=== PATIENT | male | born 1950 | race Caucasian/White ===

== ENCOUNTER 2018-12-17 15:15 | Inpatient (IN) | payer MEDICARE, OTHER ==
[~2018-12-17] VITALS: Ht 185.4 cm; Wt 119.8 kg
--- OUTSIDE RECORDS SUMMARY | 2018-12-17 15:21 | XMS REPORT | Continuity of Care Document ---
Author Organization Unknown Address Unknown Allergies There is no data. Medications There is no data. Problems There is no data. Procedures There is no data. Results Test Result Range LIPID PANEL - 11/30/18 11:00 CHOLESTEROL, TOTAL 175 mg/dL <200 HDL CHOLESTEROL 44 mg/dL >40 TRIGLYCERIDES 362 mg/dL <150 LDL-CHOLESTEROL 83 mg/dL (calc) NRG CHOL/HDLC RATIO 4.0 (calc) <5.0 NON HDL CHOLESTEROL 131 mg/dL (calc) <130 Encounters ACCT No. Visit Date/Time Discharge Status Pt. Type Provider Facility Loc./Unit Complaint [id number] 11/30/2018 11:00:00 11/30/2018 23:59:59 [facility] Outpatient [facility] [facility] [id number] 11/30/2018 11:00:00 Document Registration
--- NOTE | 2018-12-17 15:28 | ED General ---
General Chief Complaint: Respiratory Problems Stated Complaint: CONFUSION,SOB History of Present Illness Date Seen by Provider: December 17, 2018 Time Seen by Provider: 15:27 Initial Comments Patient presenting to ED for evaluation of multiple complaints including confusion cough shortness of breath fevers chills dysuria. Patient is present with and they say that he had a cystoscopy done with Dr. Hurt in [facility] on Wednesday or Wednesday and he was started on Flomax and Proscar and he has been urinating every hour since then. He was having dribbling urine before that time and they're unsure exactly what procedure was done. says that he has been more confused especially today but he is alert and oriented for me. Patient also says that he is quite short of breath and walking from the car into the emergency room was quite short of breath. Fevers they have started today and the chills were yesterday. He appears nontoxic but is febrile and tachycardic but normotensive. His oxygen saturation is in the mid 90s. Allergies and Home Medications Allergies Coded Allergies: No Known Drug Allergies (Unverified , 12/17/18) Home Medications Atorvastatin Calcium 40 Mg Tablet, 40 MG PO HS, (Reported) Patient Home Medication List Home Medication List Reviewed: Yes Review of Systems Review of Systems Constitutional: chills, fever EENTM: No blurred vision Respiratory: cough, short of breath Gastrointestinal: No abdominal pain, No vomiting Genitourinary: dysuria Musculoskeletal: No back pain Skin: No rash Psychiatric/Neurological: No Symptoms Reported All Other Systems Reviewed Negative Unless Noted: Yes Physical Exam Vital Signs Vital Signs - First Documented 12/17/18 15:22 Temp 101.5 Pulse 120 Resp 23 B/P (MAP) 139/83 (101) Pulse Ox 96 O2 Delivery Nasal Cannula Capillary Refill : Height, Weight, BMI Height: '" Weight: lbs. oz. kg; BMI Method: General Appearance: No Apparent Distress, WD/WN HEENT: Pharynx Normal Neck: Supple Respiratory: Chest Non Tender, Lungs Clear Cardiovascular: No Edema, Tachycardia Gastrointestinal: Non Tender, Soft Back: No Vertebral Tenderness Extremity: Normal Capillary Refill Neurologic/Psychiatric: Alert, Oriented x3 Skin: Normal Color, Warm/Dry Focused Exam Lactate Level 12/17/18 15:43: Lactic Acid Level 1.38 Lactic Acid Level Laboratory Tests Test 12/17/18 15:43 Lactic Acid Level 1.38 MMOL/L (0.50-2.00) Progress/Results/Core Measures Suspected Sepsis SIRS Temperature: Pulse: Respiratory Rate: Laboratory Tests 12/17/18 15:43: White Blood Count 7.9 Blood Pressure / Mean: 12/17/18 15:43: Lactic Acid Level 1.38 Laboratory Tests 12/17/18 15:43: Creatinine 0.92, INR Comment 1.0, Platelet Count 114L, Total Bilirubin 0.9 Results/Orders Lab Results Laboratory Tests Test 12/17/18 15:43 12/17/18 16:00 Range/Units White Blood Count 7.9 4.3-11.0 10^3/uL Red Blood Count 5.14 4.35-5.85 10^6/uL Hemoglobin 14.5 13.3-17.7 G/DL Hematocrit 45 40-54 % Mean Corpuscular Volume 87 80-99 FL Mean Corpuscular Hemoglobin 28 25-34 PG Mean Corpuscular Hemoglobin Concent 32 32-36 G/DL Red Cell Distribution Width 12.6 10.0-14.5 % Platelet Count 114 L 130-400 10^3/uL Mean Platelet Volume 11.3 H 7.4-10.4 FL Neutrophils (%) (Auto) 86 H 42-75 % Lymphocytes (%) (Auto) 5 L 12-44 % Monocytes (%) (Auto) 9 0-12 % Eosinophils (%) (Auto) 0 0-10 % Basophils (%) (Auto) 0 0-10 % Neutrophils # (Auto) 6.8 1.8-7.8 X 10^3 Lymphocytes # (Auto) 0.4 L 1.0-4.0 X 10^3 Monocytes # (Auto) 0.7 0.0-1.0 X 10^3 Eosinophils # (Auto) 0.0 0.0-0.3 10^3/uL Basophils # (Auto) 0.0 0.0-0.1 10^3/uL Neutrophils % (Manual) 78 % Lymphocytes % (Manual) 3 % Monocytes % (Manual) 3 % Eosinophils % (Manual) 0 % Basophils % (Manual) 0 % Metamyelocytes % 1 % Band Neutrophils 15 % Prothrombin Time 13.9 12.2-14.7 SEC INR Comment 1.0 0.8-1.4 Activated Partial Thromboplast Time 27 24-35 SEC D-Dimer 1.45 H 0.00-0.49 UG/ML Sodium Level 128 L 135-145 MMOL/L Potassium Level 4.5 3.6-5.0 MMOL/L Chloride Level 87 L 98-107 MMOL/L Carbon Dioxide Level 11 L 21-32 MMOL/L Anion Gap 30 H 5-14 MMOL/L Blood Urea Nitrogen 15 7-18 MG/DL Creatinine 0.92 0.60-1.30 MG/DL Estimat Glomerular Filtration Rate > 60 BUN/Creatinine Ratio 16 Glucose Level 420 *H 70-105 MG/DL Lactic Acid Level 1.38 0.50-2.00 MMOL/L Calcium Level 9.4 8.5-10.1 MG/DL Corrected Calcium 9.2 8.5-10.1 MG/DL Magnesium Level 1.8 1.8-2.4 MG/DL Total Bilirubin 0.9 0.1-1.0 MG/DL Aspartate Amino Transf (AST/SGOT) 27 5-34 U/L Alanine Aminotransferase (ALT/SGPT) 42 0-55 U/L Alkaline Phosphatase 138 H 40-136 U/L Total Protein 8.2 6.4-8.2 GM/DL Albumin 4.3 3.2-4.5 GM/DL Lipase 12 8-78 U/L Urine Color YELLOW Urine Clarity CLEAR Urine pH 5.5 5-9 Urine Specific [place] 1.020 1.016-1.022 Urine Protein 1+ H NEGATIVE Urine Glucose (UA) 2+ H NEGATIVE Urine Ketones 3+ H NEGATIVE Urine Nitrite POSITIVE H NEGATIVE Urine Bilirubin NEGATIVE NEGATIVE Urine Urobilinogen 0.2 NORMAL MG/DL Urine Leukocyte Esterase 1+ H NEGATIVE Urine RBC (Auto) 2+ H NEGATIVE Urine RBC 0-2 /HPF Urine WBC 50-100 H /HPF Urine Crystals NONE /LPF Urine Bacteria FEW H /HPF Urine Casts NONE /LPF Urine Mucus NEGATIVE /LPF Urine Culture Indicated YES My Orders Orders - MARISSA WARNER DO Blood Culture (12/17/18 15:37) Cbc With Automated Diff (12/17/18 15:37) Comprehensive Metabolic Panel (12/17/18 15:37) Lactic Acid Analyzer (12/17/18 15:37) Lipase (12/17/18 15:37) Magnesium (12/17/18 15:37) Partial Thromboplastin Time (12/17/18 15:37) Probnp Fs (12/17/18 15:37) Protime With Inr (12/17/18 15:37) Troponin T (12/17/18 15:37) Ua Culture If Indicated (12/17/18 15:37) Chest 1 View Ap/Pa Only (12/17/18 15:37) Fibrin Degradation Products (12/17/18 15:37) Ketorolac Injection (Toradol Injection) (12/17/18 15:45) Ns Iv 1000 Ml (Sodium Chloride 0.9%) (12/17/18 15:45) Acetaminophen Tablet (Tylenol Tablet) (12/17/18 15:45) Piperacillin/Tazobactam (Bulk) (Zosyn In (12/17/18 15:45) Ekg Tracing (12/17/18 15:40) Ns Iv 1000 Ml (Sodium Chloride 0.9%) (12/17/18 15:45) Ns Iv 500 Ml (Sodium Chloride 0.9%) (12/17/18 15:45) Piperacillin Sodium/Tazobactam (Zosyn Vi (12/17/18 15:53) Ns (Ivpb) (Sodium Chloride 0.9% Ivpb Bag (12/17/18 15:54) Ketorolac Injection (Toradol Injection) (12/17/18 15:54) Manual Differential (12/17/18 15:43) Insulin Regular Tpn/Drip Only (Humulin R (12/17/18 16:45) Blood Culture (12/17/18 15:49) Urine Culture (12/17/18 16:00) Ns Iv 500 Ml (Sodium Chloride 0.9%) (12/17/18 16:45) Ct Angio Chest W (12/17/18 16:42) Insulin (Regular) Human (Humulin R (Per (12/17/18 16:41) Iohexol Injection (Omnipaque 350 Mg/Ml 1 (12/17/18 16:45) Received Contrast (Hold Metformin- Contr (12/17/18 16:45) Sodium Chloride Flush (Catheter Flush Sy (12/17/18 16:45) Ns (Ivpb) (Sodium Chloride 0.9% Ivpb Bag (12/17/18 16:45) Insulin (Regular) Human (Humulin R (Per (12/17/18 16:42) Ns (Ivpb) (Sodium Chloride 0.9%) (12/17/18 16:44) Medications Given in ED Current Medications Medications Dose Ordered Sig/Scar Route Start Time Stop Time Status Last Admin Dose Admin Acetaminophen 1,000 mg ONCE ONCE PO 12/17/18 15:45 12/17/18 15:46 DC 12/17/18 16:06 1,000 MG Piperacillin Sod/ Tazobactam Sod 4.5 gm/Sodium Chloride 120 ml @ 240 mls/hr ONCE ONCE IV 12/17/18 15:45 12/17/18 16:14 DC 12/17/18 16:07 240 MLS/HR Sodium Chloride 100 ml @ ud STK-MED ONCE .ROUTE 12/17/18 15:54 12/17/18 15:58 DC 12/17/18 16:08 100 MLS/HR Sodium Chloride 1,000 ml ONCE ONCE IV 12/17/18 15:45 12/17/18 15:46 DC 12/17/18 16:06 1,000 ML Vital Signs/I&O 12/17/18 15:22 Temp 101.5 Pulse 120 Resp 23 B/P (MAP) 139/83 (101) Pulse Ox 96 O2 Delivery Nasal Cannula Capillary Refill : Progress Note : Progress Note Patient does meet surge criteria with his fever and tachycardia. He was started on sepsis protocol IV fluids for ideal body weight given his BMI is over 30. His ideal body weight for his height engender is 176 kg. 2.5 L of normal saline ordered in addition to Zosyn. Patient does in fact have a urinary tract infection and is sepsis criteria. He also is in DKA with a blood sugar 420 and is quite acidotic with a CO2 of 11. Patient hydrated aggressively and insulin drip was started. I will go ahead and order a CT angios of his chest to rule out pulmonary embolism given his recent procedure. He will also get an ABG. Patient is ill but is nontoxic and appears to be normotensive so does not require pressors at this time. Patient will be transferred to [place]'s ICU. Patient transferred in guarded condition. Patient accepted by Dr. Parker. Critical Care Note Critical Care Total Time (minutes) 37 Departure Impression Primary Impression: Sepsis Additional Impressions: DKA (diabetic ketoacidoses) UTI (urinary tract infection) Disposition: 09 ADMITTED INPATIENT Condition: Improved Transfer Time Spoke to Accepting Phy: 16:50 Departure-Patient Inst. Referrals: TALA FRY MD (PCP/Family) Primary Care Physician MARISSA WARNER DO December 17, 2018 15:27
[2018-12-17] MEDS ORDERED: ACETAMINOPHEN 500 MG TAB (TYLENOL) PO ONE (15:45)
[2018-12-17] MEDS ORDERED: NS 1000 ML IV BAG IV ONE ×2 (15:45)
[2018-12-17] MEDS ORDERED: NS IV 500 ML 500 ML IV SCH ×2 (15:45→16:45)
[2018-12-17] MEDS ORDERED: PIPERACILLIN/TAZOBACTAM (BULK) 4.5 GM in NS (IVPB) 100 ML IV ONE (15:45)
[2018-12-17] MEDS ORDERED: KETOROLAC 15 MG/ML VIAL IVP ONE (15:45)
[2018-12-17] MEDS ORDERED: PIPERACILLIN/TAZO 4.5 GM VIAL (ZOSYN) IV ONE (15:53)
[2018-12-17] MEDS ORDERED: KETOROLAC 30 MG/ML VIAL ONE (15:54)
[2018-12-17] MEDS ORDERED: NS (IVPB) 100 ML ONE (15:54)
[2018-12-17 15:58] LABS: HEMATOCRIT 45 % (40-54); HEMOGLOBIN 14.5 G/DL (13.3-17.7); MEAN CORPUSCULAR HEMOGLOBIN 28 PG (25-34); MEAN CORPUSCULAR VOLUME 87 FL (80-99); WHITE BLOOD COUNT 7.9 10^3/uL (4.3-11.0)
[2018-12-17 15:59] LABS: BASOPHILS % (AUTO) 0 % (0-10); EOSINOPHILS % (AUTO) 0 % (0-10); LYMPHOCYTES # (AUTO) 0.4 X 10^3 (1.0-4.0); LYMPHOCYTES % (AUTO) 5 % (12-44); MEAN CORPUSCULAR HGB CONC 32 G/DL (32-36); MEAN PLATELET VOLUME 11.3 FL (7.4-10.4); MONOCYTES # (AUTO) 0.7 X 10^3 (0.0-1.0); MONOCYTES % (AUTO) 9 % (0-12); NEUTROPHILS # (AUTO) 6.8 X 10^3 (1.8-7.8); NEUTROPHILS % (AUTO) 86 % (42-75); PLATELET COUNT 114 10^3/uL (130-400); RED CELL DISTRIBUTION WIDTH 12.6 % (10.0-14.5)
[2018-12-17] MEDS ORDERED: QUET400T12 PO (16:00)
[2018-12-17] MEDS ORDERED: GABA-488 PO (16:00)
[2018-12-17] MEDS ORDERED: METF-399 PO (16:00)
[2018-12-17] MEDS ORDERED: LAMO100T69 PO (16:00)
[2018-12-17] MEDS ORDERED: ATOR40TA70 PO (16:00)
[2018-12-17] MEDS ORDERED: CARV25TA PO (16:00)
[2018-12-17] MEDS ORDERED: VENL150C98 PO (16:00)
[2018-12-17] MEDS ORDERED: TAMSULOSIN (16:00)
[2018-12-17 16:17] LABS: BAND NEUTROPHILS 15 %; BASOPHILS % (MANUAL) 0 %; EOSINOPHILS % (MANUAL) 0 %; LYMPHOCYTES % (MANUAL) 3 %; METAMYELOCYTES % 1 %; MONOCYTES % (MANUAL) 3 %; NEUTROPHILS % (MANUAL) 78 %
[2018-12-17 16:19] LABS: FIBRIN DEGRADATION PRODUCTS 1.45 UG/ML (0.00-0.49); PROTHROMBIN TIME PATIENT 13.9 SEC (12.2-14.7)
[2018-12-17 16:23] LABS: BUN/CREATININE RATIO 16; CARBON DIOXIDE 11 MMOL/L (21-32); CHLORIDE 87 MMOL/L (98-107); CREATININE SERUM 0.92 MG/DL (0.60-1.30); GFR ESTIMATED > 60; POTASSIUM 4.5 MMOL/L (3.6-5.0); SODIUM 128 MMOL/L (135-145)
--- NOTE | 2018-12-17 16:24 | Diagnostic Imaging Report ---
INDICATION: Confusion and shortness of breath. TIME OF EXAM: 3:57 p.m. No prior studies available for comparison. The heart size is normal. The pulmonary vascularity is unremarkable. The lungs are clear. No infiltrate, effusion or pneumothorax is detected. IMPRESSION: No acute cardiopulmonary process is detected. Dictated by: Dictated on workstation # [id number]
[2018-12-17 16:25] LABS: ALANINE AMINOTRANSFERASE 42 U/L (0-55); ALKALINE PHOSPHATASE 138 U/L (40-136); BILIRUBIN,TOTAL 0.9 MG/DL (0.1-1.0); CALCIUM 9.4 MG/DL (8.5-10.1); GLUCOSE 420 MG/DL (70-105); MAGNESIUM 1.8 MG/DL (1.8-2.4)
--- NOTE | 2018-12-17 16:25 | NUR ---
Critical lab value glucose [address] Sotelo at this time.
[2018-12-17 16:26] LABS: ALBUMIN 4.3 GM/DL (3.2-4.5); TOTAL PROTEIN 8.2 GM/DL (6.4-8.2)
[2018-12-17 16:27] LABS: LIPASE 12 U/L (8-78)
[2018-12-17 16:32] LABS: CLARITY,URINE CLEAR; COLOR,URINE YELLOW; PH,URINE 5.5 (5-9)
[2018-12-17 16:33] LABS: BACTERIA,URINE FEW /HPF; BILIRUBIN,URINE NEGATIVE (NEGATIVE); GLUCOSE, URINE (UA) 2+ (NEGATIVE); KETONES,URINE 3+ (NEGATIVE); LEUKOCYTE ESTERASE ,URINE 1+ (NEGATIVE); NITRITE,URINE POSITIVE (NEGATIVE); PROTEIN,URINE 1+ (NEGATIVE); RBC,URINE 0-2 /HPF; UROBILINOGEN,URINE 0.2 MG/DL (NORMAL); WBC,URINE 50-100 /HPF
[2018-12-17] MEDS ORDERED: inSUlin (REGULAR) HUMAN 1 UNIT/0.01 ML (CHARGE PER UNIT) ONE ×3 (16:41→20:04)
[2018-12-17] MEDS ORDERED: NS (IVPB) 250 ML ONE (16:44)
[2018-12-17] MEDS ORDERED: IOHEXOL 350 MG/ML 150 ML (OMNIPAQUE 350) VIAL IV ONE (16:45)
[2018-12-17] MEDS ORDERED: inSUlin REGULAR TPN/DRIP ONLY 250 UNITS in NORMAL SALINE 250 ML IV SCH (16:45)
[2018-12-17] MEDS ORDERED: NS 100 ML (IVPB) BAG IV ONE (16:45)
[2018-12-17] MEDS ORDERED: HOLD METFORMIN - RECEIVED CONTRAST 20 ML VIAL IV SCH (16:45)
[2018-12-17] MEDS ORDERED: CATHETER FLUSH 10 ML SYR IV PRN (16:45)
[2018-12-17 17:08] LABS: ABG PCO2 22 MMHG (35-45); ABG PO2 72 MMHG (79-93)
[2018-12-17 17:09] LABS: ABG BASE EXCESS -13.7 MMOL/L (-2.5-2.5); ABG OXYGEN SATURATION 92 % (94-100); ABG TCO2 11.5 MMOL/L (21.0-31.0); ALLENS TEST OK; INSPIRED O2 ROOM AIR; PATIENT TEMP 101.5; VENTILATOR NO
--- OUTSIDE RECORDS SUMMARY | 2018-12-17 17:16 | XMS REPORT | Continuity of Care Document ---
[...] Status Pt. Type Provider Facility Loc./Unit Complaint [id number] 11/30/2018 11:00:00 11/30/2018 23:59:59 [facility] Outpatient [facility] [place] [facility] [id number] 11/30/2018 11:00:00 Document Registration
--- NOTE | 2018-12-17 17:44 | Diagnostic Imaging Report ---
PROCEDURE: CT angiography of the chest with contrast. TECHNIQUE: Multiple contiguous axial images were obtained through the chest after uneventful bolus administration of intravenous contrast. 2D reconstructed CTA MIP acquisitions were also performed. Auto Exposure Controls were utilized during the CT exam to meet ALARA standards for radiation dose reduction. INDICATION: Dyspnea, weakness and elevated d-dimer. FINDINGS: Study is limited by motion, however, there appears to be good opacification of pulmonary arteries. No filling defect is identified. Thoracic aorta is also unremarkable in appearance apart from mild atherosclerotic disease. There is normal three-vessel branching pattern arising from aortic arch. Lungs are clear without evidence of pneumonia, mass or consolidation. There is no significant pleural or pericardial fluid. Note is made of low density throughout the liver indicating steatosis. IMPRESSION: Limited study reveals no evidence of pulmonary embolism or other acute abnormality in the thorax. Dictated by: Dictated on workstation # [id number]
[2018-12-17 18:39] VITALS: BP 110/82
[2018-12-17 19:00] VITALS: BP 120/73
[2018-12-17] MEDS ORDERED: D5 NS 1000 ML IV SOLUTION 1,000 ML IV SCH (19:30)
[2018-12-17] MEDS ORDERED: inSUlin (REGULAR) HUMAN 1 UNIT/0.01 ML (CHARGE PER UNIT) IV PRN (19:30)
[2018-12-17] MEDS ORDERED: INSULIN DRIP 250 UNITS/NS 250 ML IV SCH ×2 (19:30)
[2018-12-17] MEDS ORDERED: DEXTROSE 50% 50 ML (IMS) SYR IV PRN (19:30)
[2018-12-17] MEDS ORDERED: NS IV 1000 ML 1,000 ML IV SCH (19:30)
[2018-12-17] MEDS ORDERED: POTASSIUM CL 10MEQ/50ML IVPB 50 ML IV ONE (19:41)
[2018-12-17] MEDS ORDERED: 1/2 NS IV SOLUTION 1,000 ML IV ONE (19:42)
[2018-12-17 19:43] LABS: CALCIUM 8.6 MG/DL (8.5-10.1); CREATININE SERUM 1.25 MG/DL (0.60-1.30); POTASSIUM 3.7 MMOL/L (3.6-5.0)
[2018-12-17 20:00] VITALS: BP 102/52
[2018-12-17] MEDS ORDERED: NS IV 1000 ML X 1 WIDE OPEN IV ONE (20:00)
[2018-12-17] MEDS ORDERED: REGULAR inSUlin DRIP 250 UNITS/NS 250 ML IV SCH ×2 (20:00)
[2018-12-17] MEDS ORDERED: NORMAL SALINE 250 ML ONE (20:03)
[2018-12-17] MEDS ORDERED: PATIENT MAY USE OWN MEDS, ALL MC SCH (20:15)
[2018-12-17] MEDS: 1/2 NS IV SOLUTION 1,000 ML IV SCH (20:20)
[2018-12-17] MEDS: POTASSIUM CL 10MEQ/50ML IVPB 50 ML IV SCH ×2 (20:21→22:33)
[2018-12-17] MEDS ORDERED: 1/2 NS IV SOLUTION 1,000 ML IV SCH (20:30)
[2018-12-17] MEDS: D5 1/2 NS IV 1,000 ML IV SCH ×2 (20:35→21:00)
[2018-12-17] MEDS: DEXTROSE 10% IV SOLUTION 1,000 ML IV SCH (20:35)
[2018-12-17 21:00] VITALS: BP 124/82
[2018-12-17] MEDS: ATORVASTATIN 40 MG (LIPITOR) TABLET PO SCH (21:03)
[2018-12-17] MEDS ORDERED: IBUPROFEN 600 MG (MOTRIN) TAB PO ONE (21:22)
[2018-12-17] MEDS: IBUPROFEN 600 MG (MOTRIN) TAB PO PRN (21:47)
[2018-12-17 21:59] LABS: BUN/CREATININE RATIO 10; CALCIUM 8.5 MG/DL (8.5-10.1); CARBON DIOXIDE 16 MMOL/L (21-32); CHLORIDE 100 MMOL/L (98-107); CREATININE SERUM 1.16 MG/DL (0.60-1.30); GFR ESTIMATED > 60; GLUCOSE 287 MG/DL (70-105); POTASSIUM 3.9 MMOL/L (3.6-5.0); SODIUM 131 MMOL/L (135-145)
[2018-12-17 22:00] VITALS: BP 118/68
[2018-12-17 23:00] VITALS: BP 110/70
[2018-12-17] MEDS ORDERED: HYDROcodone/APAP 5 MG/325 MG (LORTAB) TAB ONE (23:50)
[2018-12-17] MEDS: HYDROcodone/APAP 5 MG/325 MG (LORTAB) TAB PO PRN (23:55)
[2018-12-18] VITALS (22 sets, daily range): BP systolic 95–141; BP diastolic 60–90
[2018-12-18] MEDS ORDERED: IBUPROFEN 600 MG (MOTRIN) TAB PO SCH
[2018-12-18] MEDS: 1/2 NS IV SOLUTION 1,000 ML IV SCH ×6 (00:23→21:58)
[2018-12-18] MEDS: POTASSIUM CL 10MEQ/50ML IVPB 50 ML IV SCH ×8 (00:23→13:13)
[2018-12-18 01:39] LABS: BASOPHILS % (AUTO) 0 % (0-10); EOSINOPHILS % (AUTO) 0 % (0-10); HEMATOCRIT 34 % (40-54); HEMOGLOBIN 11.2 G/DL (13.3-17.7); LYMPHOCYTES # (AUTO) 0.7 X 10^3 (1.0-4.0); LYMPHOCYTES % (AUTO) 10 % (12-44); MEAN CORPUSCULAR HEMOGLOBIN 28 PG (25-34); MEAN CORPUSCULAR HGB CONC 33 G/DL (32-36); MEAN CORPUSCULAR VOLUME 84 FL (80-99); MEAN PLATELET VOLUME 10.8 FL (7.4-10.4); MONOCYTES # (AUTO) 0.4 X 10^3 (0.0-1.0); MONOCYTES % (AUTO) 6 % (0-12); NEUTROPHILS # (AUTO) 5.7 X 10^3 (1.8-7.8); NEUTROPHILS % (AUTO) 83 % (42-75); PLATELET COUNT 104 10^3/uL (130-400); WHITE BLOOD COUNT 6.9 10^3/uL (4.3-11.0)
[2018-12-18 01:59] LABS: ALANINE AMINOTRANSFERASE 32 U/L (0-55); ALBUMIN 3.3 GM/DL (3.2-4.5); ALKALINE PHOSPHATASE 86 U/L (40-136); BILIRUBIN,TOTAL 0.7 MG/DL (0.1-1.0); BUN/CREATININE RATIO 13; CARBON DIOXIDE 17 MMOL/L (21-32); CHLORIDE 101 MMOL/L (98-107); CREATININE SERUM 1.08 MG/DL (0.60-1.30); GFR ESTIMATED > 60; GLUCOSE 235 MG/DL (70-105); MAGNESIUM 1.5 MG/DL (1.8-2.4); POTASSIUM 3.7 MMOL/L (3.6-5.0); SODIUM 128 MMOL/L (135-145); TOTAL PROTEIN 5.9 GM/DL (6.4-8.2)
[2018-12-18] MEDS: D5 1/2 NS IV 1,000 ML IV SCH ×3 (04:03→13:19)
[2018-12-18] MEDS: MAGNESIUM 1 GM/100 ML IVPB 100 ML IV SCH (05:39)
[2018-12-18] MEDS: KCL 20 MEQ TAB (K-DUR) PO SCH (05:39)
[2018-12-18] MEDS: DEXTROSE 10% IV SOLUTION 1,000 ML IV SCH ×2 (06:03→16:41)
[2018-12-18] MEDS ORDERED: LIDOCAINE UROJET 2% GEL 10 ML PKG ONE (07:26)
[2018-12-18] MEDS: IBUPROFEN 600 MG (MOTRIN) TAB PO PRN ×2 (07:53→17:57)
[2018-12-18 09:45] LABS: BUN/CREATININE RATIO 11; CALCIUM 7.9 MG/DL (8.5-10.1); CARBON DIOXIDE 14 MMOL/L (21-32); CHLORIDE 103 MMOL/L (98-107); CREATININE SERUM 0.82 MG/DL (0.60-1.30); GFR ESTIMATED > 60; GLUCOSE 223 MG/DL (70-105); POTASSIUM 3.5 MMOL/L (3.6-5.0); SODIUM 127 MMOL/L (135-145)
[2018-12-18] MEDS ORDERED: cefTRIAXone 1,000 MG IV (ROCEPHIN) VIAL ONE (09:58)
[2018-12-18] MEDS ORDERED: WATER (STERILE) FOR INJECTION 10 ML ONE (09:58)
[2018-12-18] MEDS: cefTRIAXone FOR IV USE 1,000 MG in WATER (STERILE) FOR INJECTION 10 ML IV SCH (10:04)
[2018-12-18] MEDS ORDERED: VENlafaxine XR 75 MG (EFFEXOR XR) CAP PO SCH (10:12)
--- NOTE | 2018-12-18 10:19 | History & Physical-Hospitalist ---
History of Present Illness HPI/Chief Complaint This is a 68-year-old white male who presents emergency room with fever chills and mental status changes. Blood cultures are growing out gram-negative rods. Approximately one week ago he had instrumentation by Dr. Sanchez for what sounds like is a post void residual. He describes this as a painful procedure and he had come back the next day to complete the procedure. In addition the patient has a past history of diabetes for which he has not been taking his insulin for some time because he doesn't really care with her he lives or dies. He has been under the care of [facility]. He was in DKA at the time of presentation and that is improving this morning. This morning he is awake and alert but slow to respond and is somewhat difficult historian. He is not often sure of what is transpired in the past it seems. Source: patient Exam Limitations: clinical condition Date Seen 12/18/18 Time Seen by a Provider: 09:00 Attending Physician Rachna Parker MD PCP Self,Neil DE ANDA Referring Physician Date of Admission December 17, 2018 at 17:12 Home Medications & Allergies Home Medications Reviewed patient Home Medication Reconciliation performed by pharmacy medication reconciliations senior laboratory technician and/or nursing. Patients Allergies have been reviewed. Allergies Allergies Coded Allergies No Known Drug Allergies (Unverified12/17/18) Past Kmuumuv-Cwouhr-Wvriva Hx Past Med/Social Hx: Reviewed Nursing Past Med/Soc Hx Patient Social History Marrital Status: Employed/Student: retired (Sales) Alcohol Use: Denies Use Recreational Drug Use: No Smoking Status: Never a Smoker 2nd Hand Smoke Exposure: No Recent Foreign Travel: No Contact w/other who traveled: No Recent Hopitalizations: No Recent Infectious Disease Expo: No Immunizations Up To Date Date of Pneumonia Vaccine: Jun 18, 2014 Seasonal Allergies Seasonal Allergies: No Past Medical History Surgeries: Appendectomy, Orthopedic Cardiac: High Cholesterol, Hypertension Genitourinary: Benign Prostatic Hyperpl Endocrine: Diabetes, Non-Insulin dep Cancer: Skin Psychosocial: Depression History of Blood Disorders: No Family History No Pertinent Family Hx Review of Systems Constitutional: see HPI, fever, weakness EENTM: no symptoms reported Respiratory: dyspnea on exertion, short of breath Cardiovascular: other (Racing heart) Gastrointestinal: other (Lump on his left side) Genitourinary: decreased output, hesitancy Musculoskeletal: no symptoms reported Skin: no symptoms reported Psychiatric/Neurological: Depressed Physical Exam Physical Exam Vital Signs Vital Signs - First Documented 12/17/18 15:22 Temp 101.5 Pulse 120 Resp 23 B/P (MAP) 139/83 (101) Pulse Ox 96 O2 Delivery Nasal Cannula Capillary Refill : Less Than 3 Seconds Height, Weight, BMI Height: 6'1.00" Weight: 264lbs. 7.0oz. [id number]; 34.8 BMI Method:Stated General Appearance: No Apparent Distress, Obese Eyes: Bilateral Eye Normal Inspection HEENT: TMs Normal, Normal ENT Inspection, Pharynx Normal Neck: Normal Inspection, Supple, Limited Range of Motion Respiratory: Chest Non Tender, Lungs Clear, Normal Breath Sounds, No Accessory Muscle Use, No Respiratory Distress Cardiovascular: Regular Rate, Rhythm, No Edema, No Gallop, No JVD, No Murmur, Normal Peripheral Pulses Gastrointestinal: Normal Bowel Sounds, No Organomegaly, Non Tender, Soft Rectal: Deferred Back: Normal Inspection, No CVA Tenderness, No Vertebral Tenderness Extremity: Normal Capillary Refill, Normal Inspection, No Calf Tenderness, No Pedal Edema Neurologic/Psychiatric: Alert, No Motor/Sensory Deficits, Depressed Affect Skin: Normal Color, Warm/Dry Results Results/Procedures Labs Laboratory Tests 12/17/18 15:43 12/17/18 19:12 12/17/18 21:40 12/18/18 01:30 12/18/18 09:10 12/18/18 14:19 12/18/18 17:18 Patient resulted labs reviewed. Assessment/Plan Admission Diagnosis Sepsis secondary to gram-negative rods Diabetic ketoacidosis Electrolyte abnormalities secondary to DKA Type II diabetes with noncompliance Hypertension Depression History of racing heart of uncertain etiology Shortness of breath possibly secondary to deconditioning as the patient describes a very sedentary lifestyle BPH Plan to consult Dr. Hurt continue IV antibiotics aggressive IV fluids and insulin drip. Admission Status: Inpatient Order (span 2 midnights) Reason for Inpatient Admission: Sepsis with diabetic ketoacidosis Diagnosis/Problems Diagnosis/Problems (1) Sepsis Status: Acute (2) UTI (urinary tract infection) Status: Acute (3) DKA (diabetic ketoacidoses) Status: Acute Clinical Quality Measures DVT/VTE Risk/Contraindication: Risk Factor Score Per Nursin RFS Level Per Nursing on Admit: 3=High Copy Copies To 1: NEIL FRY MD Copies To 2: LINDA SANCHEZ MD, KATHLEEN M MD December 18, 2018 10:19
[2018-12-18] MEDS: GABAPENTIN 300 MG (NEURONTIN) CAP PO SCH ×2 (10:31→21:20)
[2018-12-18] MEDS: CARVEDILOL 12.5 MG (COREG) TABLET PO SCH ×2 (10:31→21:20)
[2018-12-18 14:44] LABS: BUN/CREATININE RATIO 12; CALCIUM 8.5 MG/DL (8.5-10.1); CARBON DIOXIDE 17 MMOL/L (21-32); CHLORIDE 106 MMOL/L (98-107); CREATININE SERUM 0.81 MG/DL (0.60-1.30); GFR ESTIMATED > 60; GLUCOSE 122 MG/DL (70-105); POTASSIUM 4.1 MMOL/L (3.6-5.0); SODIUM 134 MMOL/L (135-145)
[2018-12-18] MEDS: HYDROcodone/APAP 5 MG/325 MG (LORTAB) TAB PO PRN (17:09)
[2018-12-18] MEDS: NS IV 1000 ML 1,000 ML IV SCH (17:10)
[2018-12-18 17:44] LABS: BUN/CREATININE RATIO 13; CALCIUM 8.4 MG/DL (8.5-10.1); CARBON DIOXIDE 18 MMOL/L (21-32); CHLORIDE 103 MMOL/L (98-107); CREATININE SERUM 0.82 MG/DL (0.60-1.30); GFR ESTIMATED > 60; GLUCOSE 194 MG/DL (70-105); POTASSIUM 4.3 MMOL/L (3.6-5.0); SODIUM 131 MMOL/L (135-145)
[2018-12-18] MEDS ORDERED: TAMSULOSIN 0.4 MG (FLOMAX) CAP PO SCH (18:00)
[2018-12-18] MEDS ORDERED: QUEtiapine 100 MG (SEROquel) TAB IMMEDIATE RELEASE PO SCH (21:00)
[2018-12-18] MEDS: inSUlin ASPART (NovoLOG) 1 UNIT/0.01 ML (CHARGE PER UNIT) SC SCH (21:19)
[2018-12-18] MEDS: ATORVASTATIN 40 MG (LIPITOR) TABLET PO SCH (21:20)
[2018-12-18] MEDS: VENlafaxine XR 75 MG (EFFEXOR XR) CAP PO SCH (21:20)
[2018-12-19] VITALS (16 sets, daily range): BP systolic 97–138; BP diastolic 57–87
[2018-12-19] MEDS: 1/2 NS IV SOLUTION 1,000 ML IV SCH ×2 (00:29→04:23)
[2018-12-19] MEDS: DEXTROSE 10% IV SOLUTION 1,000 ML IV SCH (03:23)
[2018-12-19] MEDS: NS IV 1000 ML 1,000 ML IV SCH (03:23)
[2018-12-19 04:25] LABS: BASOPHILS % (AUTO) 0 % (0-10); EOSINOPHILS % (AUTO) 0 % (0-10); HEMATOCRIT 34 % (40-54); HEMOGLOBIN 11.3 G/DL (13.3-17.7); LYMPHOCYTES # (AUTO) 0.6 X 10^3 (1.0-4.0); LYMPHOCYTES % (AUTO) 10 % (12-44); MEAN CORPUSCULAR HEMOGLOBIN 28 PG (25-34); MEAN CORPUSCULAR HGB CONC 33 G/DL (32-36); MEAN CORPUSCULAR VOLUME 84 FL (80-99); MEAN PLATELET VOLUME 11.6 FL (7.4-10.4); MONOCYTES # (AUTO) 0.9 X 10^3 (0.0-1.0); MONOCYTES % (AUTO) 16 % (0-12); NEUTROPHILS # (AUTO) 4.1 X 10^3 (1.8-7.8); NEUTROPHILS % (AUTO) 73 % (42-75); PLATELET COUNT 82 10^3/uL (130-400); RED CELL DISTRIBUTION WIDTH 12.8 % (10.0-14.5); WHITE BLOOD COUNT 5.6 10^3/uL (4.3-11.0)
[2018-12-19 04:43] LABS: BUN/CREATININE RATIO 11; CALCIUM 8.3 MG/DL (8.5-10.1); CARBON DIOXIDE 17 MMOL/L (21-32); CHLORIDE 106 MMOL/L (98-107); CREATININE SERUM 0.74 MG/DL (0.60-1.30); GFR ESTIMATED > 60; GLUCOSE 200 MG/DL (70-105); POTASSIUM 3.7 MMOL/L (3.6-5.0); SODIUM 134 MMOL/L (135-145)
[2018-12-19] MEDS: POTASSIUM CL 10MEQ/50ML IVPB 50 ML IV SCH (05:45)
[2018-12-19] MEDS: MAGNESIUM 1 GM/100 ML IVPB 100 ML IV SCH (05:45)
[2018-12-19] MEDS: inSUlin ASPART (NovoLOG) 1 UNIT/0.01 ML (CHARGE PER UNIT) SC SCH ×4 (05:46→20:30)
[2018-12-19] MEDS: KCL 20 MEQ TAB (K-DUR) PO SCH (05:46)
[2018-12-19] MEDS: HYDROcodone/APAP 5 MG/325 MG (LORTAB) TAB PO PRN ×2 (06:20→13:36)
[2018-12-19] MEDS: IBUPROFEN 600 MG (MOTRIN) TAB PO PRN (06:50)
[2018-12-19] MEDS: CARVEDILOL 12.5 MG (COREG) TABLET PO SCH ×2 (07:52→20:25)
[2018-12-19] MEDS: VENlafaxine XR 75 MG (EFFEXOR XR) CAP PO SCH ×2 (07:52→20:25)
[2018-12-19] MEDS: GABAPENTIN 300 MG (NEURONTIN) CAP PO SCH ×2 (07:52→20:24)
--- NOTE | 2018-12-19 09:24 | Physical Therapy Evaluation ---
PT Evaluation-General Medical Diagnosis Admission Date December 17, 2018 at 17:12 Medical Diagnosis: weakness Onset Date: December 17, 2018 Therapy Diagnosis Therapy Diagnosis: impaired mobility, strength, endurance Height/Weight Height (Feet): 6 Height (Inches): 1.00 Weight (Pounds): 265 Weight (Ounces): 7.0 Precautions Precautions/Isolations: Fall Prevention, Standard Precautions Referral Physician: Christiana Muller DO Reason for Referral: Evaluation/Treatment Medical History Pertinent Medical History: DM, HTN Additional Medical History high cholesterol, BPH, depression, surg (appendectomy, orthopedic) Reviewed History: Yes Social History Home: Single Level Current Living Status: Spouse Patient states he has several steps to enter his home. Prior/Core FIM Prior Level of Function Therapy Code Descriptions/Definitions Functional [place] Measure: 0=Not Assessed/NA 4=Minimal Assistance 1=Total Assistance 5=Supervision or Setup 2=Maximal Assistance 6=Modified [place] 3=Moderate Assistance 7=Complete [place] Therapy Quality Codes: 6 Independent with activity with or without an assistive device 5 Patient requires set up or clean up by helper. Patient completes activity by themselves 4 Supervision or touching assist (CGA). Downing provide cues , steadying assist 3 The helper provides less than half the effort to complete the activity 2 The helper provides more than half the effort to complete the activity 1 Dependent. The helper does all the effort to complete an activity 7 Patient refused to complete or attempt activity 9 The patient did not perform the activity before the current illness or injury 88 Not attempted due to Medical conditions or safety concerns Functional Abilities and Goals: Independent: Patient completed the activities by him/herself, with or without an assistive device, with no assistance from a helper. Needed Some Help: Patient needed partial assistance from another person to complete activities. Dependent: A helper completed the activities for the patient. Unknown: Not Applicable: Bed Mobility: 7 Transfers (B,C,W/C) (FIM): 7 Gait: 7 Stairs: 7 Indoor Mobility (Ambulation): Independent Stairs: Independent PT Evaluation-Current Subjective Patient in bed pre tx, agrees to PT, has 8/10 pain in his neck, states he has already received pain meds. Pt/Family Goals "to be more steady on his feet" Objective Patient Orientation: Person, Place, Situation Attachments: Almaraz Catheter, IV ROM/Strength ROM Lower Extremities WNL Strength Lower Extremities right lower extremity (hip flexion 3/5, knee flexion 4/5, knee extension 4/5, dorsiflexion 5/5), left lower extremity (hip flexion 3/5, knee flexion 4/5, knee extension 4/5, dorsiflexion 5/5) Neuromuscular (Tone, Coordination, Reflexes) NT Sensory Vision: Functional Hearing: Functional Sensation Right Lower Extremit: Impaired Sensation Left Lower Extremity: Impaired Sensation Lower Extremities Patient has decreased light touch sensation in his feet. Transfers Therapy Code Descriptions/Definitions Functional [place] Measure: 0=Not Assessed/NA 4=Minimal Assistance 1=Total Assistance 5=Supervision or Setup 2=Maximal Assistance 6=Modified [place] 3=Moderate Assistance 7=Complete [place] Transfers (B, C, W/C) (FIM): 4 Scootin Rollin Supine to/from Sit: 5 Sit to/from Stand: 4 CGA for sit to stand Gait Mode of Locomotion: Walk Anticipated Mode of Locomotion: Walk Gait (FIM): 4 Distance: 150' Gait Level of Assist: 4 Gait Persons Needed: 1 Gait Assistive Device: None Comments/Gait Description CGA, slow bu steady ambulation Balance Sitting Static: Normal Sitting Dynamic: Normal Standing Static: Good Standing Dynamic: Good Treatment seated exercises BLE x15 (AP, LAQ) Assessment/Needs Patient has impaired mobility, strength, endurance. He fatigues quickly but is able to ambulate without an assistive device. Patient in recliner post tx with nurse call, phone, tray, all needs met. Rehab Potential: Fair PT Short Term Goals Short Term Goals Time Frame: December 26, 2018 Transfers (B,C,W/C) (FIM): 5 Gait (FIM): 5 Gait Distance Comment: 200' Gait Level of Assist: 5 Gait Assistive Device: None PT Plan Problem List Problem List: Activity Tolerance, Functional Strength, Safety, Balance, Gait, Transfer, Bed Mobility Treatment/Plan Treatment Plan: Continue Plan of Care Treatment Plan: Bed Mobility, Education, Functional Activity [place], Functional Strength, Gait, Safety, Therapeutic Exercise, Transfers Treatment Duration: December 26, 2018 Frequency: 6 times per week Estimated Hrs Per Day: .25 hour per day (15-30') Patient and/or Family Agrees t: Yes Safety Risks/Education Patient Education: Gait Training, Transfer Techniques, Correct Positioning, Safety Issues Teaching Recipient: Patient Teaching Methods: Demonstration, Discussion Response to Teaching: Reinforcement Needed Discharge Recommendations Plan Patient will perform bed mobility and transfer training, balance and endurance training, functional strengthening, stair training, gait training, and education , to improve functional mobility and independence at home. Therapy D/C Recommendations: Home w/ Family Support Time/GCodes Time In: 847 Time Out: 908 Total Billed Treatment Time: 21 Total Billed Treatment 1 visit KACY 21' CHANDNI SORENSEN PT December 19, 2018 09:24
[2018-12-19] MEDS: cefTRIAXone FOR IV USE 1,000 MG in WATER (STERILE) FOR INJECTION 10 ML IV SCH (09:30)
[2018-12-19] MEDS ORDERED: TAMS0.4C98 PO (09:56)
[2018-12-19] MEDS ORDERED: QUET400T PO (09:56)
[2018-12-19] MEDS ORDERED: CHOL400C9 PO (10:01)
[2018-12-19] MEDS ORDERED: AMLO5TAB9 PO (10:01)
[2018-12-19] MEDS ORDERED: MV,M1TAB4 PO (10:01)
[2018-12-19] MEDS ORDERED: MELA3TAB PO (10:01)
[2018-12-19] MEDS ORDERED: FINA5TAB6 PO (10:01)
[2018-12-19] MEDS ORDERED: GABA-488 PO (10:03)
--- NOTE | 2018-12-19 10:04 | NUR ---
SPOKE WITH THE PATIENT ABOUT HIS MEDICATIONS. HE STATES HE TAKES A MTV DAILY OTC AND HE TAKES HIS BLOOD PRESSURE PILL 2 TABS OF A MORNING BUT EVERYTHING ELSE IS SET UP IN A PILL HOUSEKEEPER MANAGER BY HIS . THERE IS A LIST SCANNED IN ON HIS CHART AND I CALLED HIS AND WENT OVER THE REST OF THE MEDICATIONS WITH HER. IN ADDITION TO WHAT IS SHOWN ON THE EXT MED HX [facility] [place] FILLED: 11-21-18 METFORMIN 1000MG BID #180 10-11-18 ATORVASTATIN 40MG HS #90 02-07-18 AMLODIPINE 5MG DAILY #90 (ONLY TAKES PRN FOR HIGH BLOOD PRESSURE) THE CARVEDILOL IS WRITTEN TO TAKE 2 (25MG) TABLETS BID HOWEVER HE STATES HE DID NOT REALIZE THAT AND HE ONLY TAKES 2 IN THE MORNINGS. I PUT IT ON THE MED REC HE REPORTS TAKING IT. HIS GABAPENTIN IS WRITTEN TID AND SHE PUTS THE AM AND EVENING DOSE IN THE PILL HOUSEKEEPER MANAGER BUT HE IS TO TAKE THE NOON DOSE ON HIS OWN AND FORGETS TO TAKE IT SOMETIMES, I PUT IT ON PRN. HIS QUETIAPINE 400MG IS WRITTEN TO TAKE 1 IN THE EVENING AND 2 AT HS BUT HIS STATES HE PREFERS TO TAKE ALL 3 AT BEDTIME. WHEN I CALLED AND SPOKE TO HIS SHE STATES HE RECENTLY FILLED FLOMAX 0.4MG BID AND FINASTERIDE 5MG DAILY ON 12-14-18. THESE ARE NOT SHOWING ON THE EXT MED HX BUT I UPDATED THEM ON THE MED REC PER 'S VERIFICATION. HE TAKES A MTV DAILY, VITAMIN D3 400 UNIT DAILY AND MELATONIN 3MG HS OTC.
--- NOTE | 2018-12-19 10:24 | CONSULTATION REPORT ---
DATE OF SERVICE: 12/19/2018 ATTENDING PHYSICIAN: Rachna Parker MD SUMMARY: After reviewing the patient's record in the hospital and the office, this is a 68-year-old white man who was seen in my office on 12/12/2018 had a postvoid residual checked by bladder scanner. We were unable to catheterize him at that time. The flow was decreased. We started him on Flomax b.i.d. and Proscar daily. He came back the next day on the 12/13/2018 and underwent a cystoscopy that was essentially negative. An ultrasound of his prostate revealing a size of 27 mL. He subsequently apparently developed some urosepsis and was admitted to the ICU and started on antibiotics and is responding well. ASSESSMENT: Urinary retention, combination of BPH and neurogenic bladder, has a Almaraz catheter in place that showed 500 mL again of residual. PLAN: Leave the Almaraz for now. Continue the Flomax b.i.d. and Proscar daily. We will start him on Urecholine 25 mg q.i.d. before meals and at bedtime. Tomorrow we will start trial of voiding. If all fails next Wednesday, we may do a UroLift on him, give him the best chance of good results without any guarantee because of the neurogenic element of the bladder. This was fully explained to the patient. Thanks you. Job ID: [id number] DocumentID: [id number] Dictated Date: 12/19/2018 10:00:22 Book Sorter Date: 12/19/2018 10:23:57 Dictated By: LINDA SANCHEZ MD MTDD
[2018-12-19] MEDS ORDERED: amLODIPine 5 MG (NORVASC) TAB PO PRN (10:45)
[2018-12-19] MEDS ORDERED: GABAPENTIN 300 MG (NEURONTIN) CAP PO PRN (10:45)
[2018-12-19] MEDS: BETHANECHOL 25 MG (URECHOLINE) TAB PO SCH ×3 (11:38→20:25)
--- NOTE | 2018-12-19 11:39 | Occ Therapy Progress Note ---
Therapy Progress Note pt refused OT Services. pt education on role of OT, purpose, and benefits. pt again refused stating "I am independent, and I don't need you to tell me I am." nursing notified of patients refusal. d/c order secondary to refusal. SAEED ANDREW OT December 19, 2018 11:39
--- NOTE | 2018-12-19 12:47 | Progress Note-Hospitalist ---
Progress Note Progress Notes/Assess & Plan Date Seen 12/19/18 Time Seen by Provider: 12:05 Assessment & Plan The patient is a 68-year-old white male admitted with presumed sepsis and a urinary tract infection. He has now been seen by Dr. Dias from urology. He has given him bethanechol to aid in reducing his urinary retention. He feels that he can be transferred to the floor today. The plan would be to remove the Almaraz tomorrow and assess his ongoing degree of retention. Physical exam: The patient is alert and pleasant. Lungs are clear to auscultation. CV is regular without murmur. Abdomen is soft without tenderness. Impression: Urinary tract infection/sepsis. 2.urinary retention. Plan: Transfer to [facility] floor. Continue medications as noted above. Hope for discharge tomorrow if he is able to empty his bladder. Focused Exam Lactate Level 12/17/18 15:43: Lactic Acid Level 1.38 ALEXANDRE ALCALA MD December 19, 2018 12:47
[2018-12-19] MEDS: ATORVASTATIN 40 MG (LIPITOR) TABLET PO SCH (20:24)
[2018-12-19] MEDS: TAMSULOSIN 0.4 MG (FLOMAX) CAP PO SCH (20:25)
[2018-12-19] MEDS: QUEtiapine 200 MG (SEROquel) TAB IMMEDIATE RELEASE PO SCH (20:25)
[2018-12-19] MEDS ORDERED: CARVEDILOL 12.5 MG (COREG) TABLET PO SCH (21:00)
[2018-12-20 04:07] VITALS: BP 107/62
[2018-12-20] MEDS: BETHANECHOL 25 MG (URECHOLINE) TAB PO SCH ×4 (06:20→20:41)
[2018-12-20] MEDS: inSUlin ASPART (NovoLOG) 1 UNIT/0.01 ML (CHARGE PER UNIT) SC SCH ×4 (06:20→20:40)
[2018-12-20] MEDS: metFORMIN 500 MG (GLUCOPHAGE) TAB PO SCH ×2 (06:20→16:15)
--- NOTE | 2018-12-20 07:54 | Progress Note-Urology ---
Progress Note-Urology Progress Notes/Assess & Plan Progress/Assessment & Plan NO BEDS ON 4TH FLOOR YET. PLAN TOV TODAY Final Diagnosis URINE RETENTION LINDA SANCHEZ MD December 20, 2018 07:54
[2018-12-20 08:00] VITALS: BP 124/71
--- NOTE | 2018-12-20 08:34 | Physical Therapy Daily Note ---
PT Daily Note-Current Subjective Patient in bed pre tx, agrees to PT reluctantly, states he has a slight headache. Appearance Patient in bed post tx with nurse call, phone, tray, all needs met. Mental Status Patient Orientation: Person, Place, Situation Attachments: Almaraz Catheter Transfers Therapy Code Descriptions/Definitions Functional [place] Measure: 0=Not Assessed/NA 4=Minimal Assistance 1=Total Assistance 5=Supervision or Setup 2=Maximal Assistance 6=Modified [place] 3=Moderate Assistance 7=Complete [place] Therapy Quality Codes: 6 Independent with activity with or without an assistive device 5 Patient requires set up or clean up by helper. Patient completes activity by themselves 4 Supervision or touching assist (CGA). [place] provide cues , steadying assist 3 The helper provides less than half the effort to complete the activity 2 The helper provides more than half the effort to complete the activity 1 Dependent. The helper does all the effort to complete an activity 7 Patient refused to complete or attempt activity 9 The patient did not perform the activity before the current illness or injury 88 Not attempted due to Medical conditions or safety concerns Transfers (B, C, W/C) (FIM): 5 Scootin Rollin Supine to/from Sit: 6 Sit to/from Stand: 5 Gait Training Gait (FIM): 5 Distance: 300' Gait Level of Assist: 5 Gait Persons Needed: 1 Gait Assistive Device: None Patient has moments of unsteadiness, needs to ambulate near the wall so he can reach out to support himself when needed. Treatments bed mobility and transfers, ambulation Assessment Current Status: Fair Progress improved endurance PT Short Term Goals Short Term Goals Time Frame: December 26, 2018 Transfers (B,C,W/C) (FIM): 5 Gait (FIM): 5 Gait Distance Comment: 200' Gait Level of Assist: 5 Gait Assistive Device: None PT Plan Problem List Problem List: Activity Tolerance, Functional Strength, Safety, Balance, Gait, Transfer Treatment/Plan Treatment Plan: Continue Plan of Care Treatment Plan: Bed Mobility, Education, Functional Activity Stoney, Functional Strength, Gait, Safety, Therapeutic Exercise, Transfers Treatment Duration: December 26, 2018 Frequency: 6 times per week Estimated Hrs Per Day: .25 hour per day (15-30') Patient and/or Family Agrees t: Yes Safety Risks/Education Patient Education: Gait Training, Transfer Techniques, Correct Positioning, Safety Issues Teaching Recipient: Patient Teaching Methods: Demonstration, Discussion Response to Teaching: Reinforcement Needed Time/GCodes Time In: 814 Time Out: 829 Total Billed Treatment Time: 15 Total Billed Treatment 1 visit GT 15' CHANDNI SORENSEN PT December 20, 2018 08:34
[2018-12-20] MEDS: FINASTERIDE (PROSCAR) 5 MG TAB PO SCH (08:43)
[2018-12-20] MEDS: cefTRIAXone FOR IV USE 1,000 MG in WATER (STERILE) FOR INJECTION 10 ML IV SCH (08:43)
[2018-12-20] MEDS: VENlafaxine XR 75 MG (EFFEXOR XR) CAP PO SCH ×2 (08:44→20:41)
[2018-12-20] MEDS: GABAPENTIN 300 MG (NEURONTIN) CAP PO SCH ×2 (08:44→20:41)
[2018-12-20] MEDS: CARVEDILOL 12.5 MG (COREG) TABLET PO SCH ×2 (08:44→20:41)
[2018-12-20] MEDS: TAMSULOSIN 0.4 MG (FLOMAX) CAP PO SCH ×2 (08:45→20:41)
[2018-12-20] MEDS: HYDROcodone/APAP 5 MG/325 MG (LORTAB) TAB PO PRN ×3 (08:56→19:25)
[2018-12-20 12:47] VITALS: BP 126/72
--- NOTE | 2018-12-20 13:02 | Physician Query Clarification ---
PQ-Link Infection to Dev/Proc Admission/Discharge Admission Date: December 17, 2018 at 17:12 Discharge Date: The medical record reflects the following clinical scenario: History/Risk Factors: Recent cystoscopy Sepsis/UTI Clinical Findings: Admitting Urine culture > 100,000/ML Enterobacter aerogenes, admitting blood culture positive for isolated Enterobacter aerogenes. Treatment: IV Piperacillin Sod/Tazobactam Sod/Sodium Chloride, IV Rocephin. Question: Can you specify if the Sepsis/UTI are due to/associated with recent cystoscopy procedure? Please document a response below. PHYSICIAN RESPONSE Specify if infection: Other, explanation/clinical finding Explanation of clincal finding possibility In responding to this query, please exercise your independent professional judgment. The purpose of this communication is to more accurately reflect the complexity of your patients condition. The fact that a question is asked does not imply that any particular answer is desired or expected. Thank you for your timely response to this clarification. Requestors name: Alexa Anthony [facility] Phone # ext [phone] or [phone] THIS PHYSICIAN QUERY FORM IS A PERMANENT PART OF THE MEDICAL RECORD ALEXA ANTHONY December 20, 2018 13:02 LINDA SANCHEZ MD December 21, 2018 07:23
--- NOTE | 2018-12-20 13:28 | NUR ---
BLADDER SCAN DONE AFTER PT VOIDED 125ML, RESULTS OF 828ML. PT VOIDED AGAIN WITH 250ML OUT, STRAIGHT CATH DONE USING STERILE TECHNIQUE-1000ML CLEAR YELLOW URINE OUTPUT. PT TOLERATED WELL.
[2018-12-20 16:00] VITALS: BP 133/87
[2018-12-20 16:16] VITALS: BP 133/87
--- NOTE | 2018-12-20 16:20 | Progress Note-Hospitalist ---
Progress Note Progress Notes/Assess & Plan Date Seen 12/20/18 Time Seen by Provider: 16:15 Assessment & Plan The patient was unable to be transferred to the floor yesterday because there were no [facility] available beds. He has had his catheter removed today and is undergoing measurements relative to retention. The first reports from the nurses suggests that there is still a considerable degree of retention. The patient is otherwise satisfactory and comfortable. Physical exam: Lungs are clear to auscultation. CV is regular without murmur. Abdomen is soft to palpation. Extremities show no pedal edema. Impression: Enterobacter AEROGENES urinary tract infection. 2.urinary retention. 3.prostatism. Plan: Continue the voiding trial. Concern at this time is that he may require replacement of the Almaraz catheter. ALEXANDRE ALCALA MD December 20, 2018 16:20
[2018-12-20] MEDS: IBUPROFEN 600 MG (MOTRIN) TAB PO PRN (18:02)
[2018-12-20 19:15] VITALS: BP 142/89
--- NOTE | 2018-12-20 20:27 | NUR ---
Post void residual 518cc per bladder scanner. Straight cath performed. 525cc drained with straight cath. Patient tolerated well.
[2018-12-20] MEDS: ATORVASTATIN 40 MG (LIPITOR) TABLET PO SCH (20:41)
[2018-12-20] MEDS: QUEtiapine 200 MG (SEROquel) TAB IMMEDIATE RELEASE PO SCH (20:42)
[2018-12-21] VITALS: BP 113/45
[2018-12-21 03:57] VITALS: BP 128/97
--- NOTE | 2018-12-21 04:04 | NUR ---
Patient voided 500cc per urinal. Patient post void residual per bladder scan =889cc. Straight cath done at this time 825cc drained.
[2018-12-21] MEDS: BETHANECHOL 25 MG (URECHOLINE) TAB PO SCH ×2 (06:13→11:38)
[2018-12-21] MEDS: inSUlin ASPART (NovoLOG) 1 UNIT/0.01 ML (CHARGE PER UNIT) SC SCH ×2 (06:13→11:38)
[2018-12-21] MEDS: metFORMIN 500 MG (GLUCOPHAGE) TAB PO SCH (06:13)
[2018-12-21 08:00] VITALS: BP 124/87
[2018-12-21] MEDS: VENlafaxine XR 75 MG (EFFEXOR XR) CAP PO SCH (08:07)
[2018-12-21] MEDS: TAMSULOSIN 0.4 MG (FLOMAX) CAP PO SCH (08:07)
[2018-12-21] MEDS: FINASTERIDE (PROSCAR) 5 MG TAB PO SCH (08:07)
[2018-12-21] MEDS: CARVEDILOL 12.5 MG (COREG) TABLET PO SCH (08:07)
[2018-12-21] MEDS: GABAPENTIN 300 MG (NEURONTIN) CAP PO SCH (08:07)
--- NOTE | 2018-12-21 08:37 | Physical Therapy Daily Note ---
PT Daily Note-Current Subjective Patient in bed pre tx, agrees to PT, has 3/10 pain in head and neck. Appearance Patient sitting EOB post tx talking to Dr. Dias. Has nurse call, tray, phone, all needs met. Mental Status Patient Orientation: Person, Place, Situation, Normal For Age Transfers Therapy Code Descriptions/Definitions Functional [place] Measure: 0=Not Assessed/NA 4=Minimal Assistance 1=Total Assistance 5=Supervision or Setup 2=Maximal Assistance 6=Modified [place] 3=Moderate Assistance 7=Complete [place] Therapy Quality Codes: 6 Independent with activity with or without an assistive device 5 Patient requires set up or clean up by helper. Patient completes activity by themselves 4 Supervision or touching assist (CGA). [place] provide cues , steadying assist 3 The helper provides less than half the effort to complete the activity 2 The helper provides more than half the effort to complete the activity 1 Dependent. The helper does all the effort to complete an activity 7 Patient refused to complete or attempt activity 9 The patient did not perform the activity before the current illness or injury 88 Not attempted due to Medical conditions or safety concerns Transfers (B, C, W/C) (FIM): 7 Scootin Rollin Supine to/from Sit: 7 Sit to/from Stand: 7 Bed to/from Chair: 7 Gait Training Gait (FIM): 7 Distance: 350' Gait Level of Assist: 7 Gait Assistive Device: None No LOB or unsteadiness. Treatments bed mobility and transfers, ambulation Assessment Current Status: Fair Progress Patient is not independent with mobility, patient encouraged to ambulate on his own, will discharge at this time. PT Short Term Goals Short Term Goals Time Frame: December 26, 2018 Transfers (B,C,W/C) (FIM): 5 Gait (FIM): 5 Gait Distance Comment: 200' Gait Level of Assist: 5 Gait Assistive Device: None PT Plan Problem List Problem List: Activity Tolerance Treatment/Plan Treatment Plan: Discontinue PT Treatment Plan: Bed Mobility, Education, Functional Activity Stoney, Functional Strength, Gait, Safety, Therapeutic Exercise, Transfers Treatment Duration: December 26, 2018 Frequency: 6 times per week Estimated Hrs Per Day: .25 hour per day (15-30') Patient and/or Family Agrees t: Yes Safety Risks/Education Patient Education: Gait Training, Transfer Techniques, Correct Positioning, Safety Issues Teaching Recipient: Patient Teaching Methods: Demonstration, Discussion Response to Teaching: Reinforcement Needed Discharge Recommendations Plan DC Time/GCodes Time In: 821 Time Out: 0832 Total Billed Treatment Time: 10 Total Billed Treatment 1 visit GT 10' CHANDNI SORENSEN PT December 21, 2018 08:37
--- NOTE | 2018-12-21 08:54 | Progress Note-Urology ---
Progress Note-Urology Progress Notes/Assess & Plan Progress/Assessment & Plan HAVING LARGE PVR. I HAD A LONG DISCUSSION WITH PATIENT ABOUT HIS ALTERNATIVE OF TREATMENT WITH EXPECTATIONS, RISKS, AND COMPLICATIONS STRESSING ON NEED TO HELP THE NEUROGENIC ELEMENT WITH MEDICINES AND OR I.C. DISCUSSED ISC VS UROLIFT VS TURP WITH PROS AND CONS. PATIENT REFUSES ISC, LEANS TOWARD TURP. WANTS NEXT WEDNESDAY. FULLY EXPLAINED WITH POSTOP COURSE. OK TO DISCHARGE [place] ON PO ABX, SEE ME NEXT WEDNESDAY AT OFFICE TO SET UP TURP Final Diagnosis URINE RETENTION LINDA SANCHEZ MD December 21, 2018 08:54
--- NOTE | 2018-12-21 11:30 | Progress Note-Hospitalist ---
Progress Note Progress Notes/Assess & Plan Date Seen 12/21/18 Time Seen by Provider: 11:27 Assessment & Plan Dr. Dias feels the patient is ready for discharge. He exhibited considerable retention on his postvoid residuals. Given this the plan is for him to have a TURP next Wednesday. He is said to be ready for discharge otherwise. Physical exam: Lungs are clear to auscultation. CV is regular without murmur. Abdomen is soft. Impression: 1.BPH. 2.urinary retention. Consider neurogenic bladder. 3.diabetes mellitus. Plan: Discharge. See discharge sequence for ALEXANDRE ALCALA MD December 21, 2018 11:30
[2018-12-21] MEDS ORDERED: CEFD300C3 PO (11:32)
--- NOTE | 2018-12-21 11:35 | Discharge Inst-Simple/Standard ---
Discharge Inst-Standard Patient Instructions/Follow Up Plan of Care/Instructions/FU: Medications as listed in the discharge sequence. Appointment Dr. Dias next Wednesday for preparations relative to TURP Activity as Tolerated: Yes Discharge Diet: ADA Diet ALEXANDRE ALCALA MD December 21, 2018 11:35
[2018-12-21] MEDS: cefTRIAXone FOR IV USE 1,000 MG in WATER (STERILE) FOR INJECTION 10 ML IV SCH (11:38)
[2018-12-21] MEDS ORDERED: BETH25TA11 PO (11:57)
[2018-12-21 12:00] VITALS: BP 126/78
[2018-12-21] MEDS: HYDROcodone/APAP 5 MG/325 MG (LORTAB) TAB PO PRN (12:06)
[2018-12-21 15:30] VITALS: BP 126/78
--- NOTE | 2018-12-21 16:50 | NUR ---
CALL FROM PT'S FAMILY MEMBER STATING THAT THE RX TRANSMITTED TO THE PREFERRED PHARMACY WAS UNABLE TO BE FILLED FOR PT UNDER DR ALCALA HE HAS NO REFERRAL AT THE PHARMACY BOTH RX WHERE CALLED TO PHARMACY UNDER DR SANCHEZ PHARMACY CAN FILL FOR HIM. DR SANCHEZ WAS SPOKEN WITH EARLIER IN THE AFTERNOON AND SPECIFIED THAT PT WAS TO BE DC'D WITH ANTIBIOTIC AND URECHOLINE. THESE ARE THE RX CALLED TO THE PHARMACY AT THIS TIME.
== END 2018-12-21 15:33 | disposition home or self-care (01) | DRG 862 ==
LOC: ER FS 15:18 → ICU 17:12
PROVIDERS: ADMIT Internal Medicine; ATTEND Internal Medicine
DX: T81.44XA Sepsis following a procedure, initial encounter (principal); A41.59 Other Gram-negative sepsis; N39.0 Urinary tract infection, site not specified; E11.10 Type 2 diabetes mellitus with ketoacidosis without coma; N40.1 Benign prostatic hyperplasia with lower urinary tract symptoms; R33.8 Other retention of urine; N31.9 Neuromuscular dysfunction of bladder, unspecified; I10 Essential (primary) hypertension; E78.00 Pure hypercholesterolemia, unspecified; F32.9 Major depressive disorder, single episode, unspecified; R06.02 Shortness of breath; E66.9 Obesity, unspecified; Z68.35 Body mass index [BMI] 35.0-35.9, adult; Z85.828 Personal history of other malignant neoplasm of skin; Z91.14 Patient's other noncompliance with medication regimen
CPT/HCPCS: 36415; 71045; 71275; 80048; 80053; 81000; 82805; 82962; 83605; 83690; 83735; 83880; 84484; 85007; 85025; 85027; 85379; 85610; 85730; 87040; 87077; 87088; 87186; 93005; 96361; 96365; 96375; 99291

== ENCOUNTER → 2018-12-26 | Outpatient (CLI) | payer MEDICARE, OTHER ==
[~2018-12-26] MED LIST: AMLO5TAB9 PO; ATOR40TA70 PO; BETH25TA11 PO; CARV25TA PO; CEFD300C3 PO; CHOL400C9 PO; FINA5TAB6 PO; GABA-488 PO; LAMO100T69 PO; MELA3TAB PO; METF-399 PO; MV,M1TAB4 PO; QUET400T PO; QUET400T12 PO; TAMS0.4C98 PO; TAMSULOSIN; VENL150C98 PO
== END | disposition home or self-care (01) ==
LOC: PREOP 05:59
PROVIDERS: ATTEND Urology
DX: Z01.818 Encounter for other preprocedural examination (principal)

== ENCOUNTER 2018-12-27 05:56 | Day surgery (SDC) | payer MEDICARE, OTHER ==
[2018-12-27] VITALS (11 sets, daily range): BP systolic 95–125; BP diastolic 64–81
[~2018-12-27] VITALS: Ht 185.4 cm; Wt 119.8 kg
[~2018-12-27 05:56] MED LIST changes: +LACTATED RINGERS 1,000 ML IV PRN
--- OUTSIDE RECORDS SUMMARY | 2018-12-27 05:58 | XMS REPORT | Continuity of Care Document ---
[...] Status Pt. Type Provider Facility Loc./Unit Complaint [id number] 11/30/2018 11:00:00 11/30/2018 23:59:59 [facility] Outpatient [facility] [id number] 11/30/2018 11:00:00 Document Registration
[2018-12-27 06:55] LABS: HEMOGLOBIN 11.9 G/DL (13.3-17.7); MEAN PLATELET VOLUME 10.5 FL (7.4-10.4); RED CELL DISTRIBUTION WIDTH 12.7 % (10.0-14.5)
[2018-12-27] MEDS ORDERED: cefTRIAXone 1,000 MG IV (ROCEPHIN) VIAL ONE (07:00)
[2018-12-27] MEDS ORDERED: inSUlin (REGULAR) HUMAN 1 UNIT/0.01 ML (CHARGE PER UNIT) ONE (07:15)
[2018-12-27] MEDS ORDERED: CATHETER FLUSH 10 ML SYR IV PRN (07:15)
[2018-12-27] MEDS ORDERED: cefTRIAXone 1,000 MG/SWFI 10 ML IV PUSH IV ONE ×2 (07:15)
[2018-12-27] MEDS ORDERED: inSUlin ASPART (NovoLOG) 1 UNIT/0.01 ML (CHARGE PER UNIT) ONE (07:17)
[2018-12-27 07:19] LABS: BUN/CREATININE RATIO 14; CALCIUM 9.4 MG/DL (8.5-10.1); CARBON DIOXIDE 22 MMOL/L (21-32); CHLORIDE 99 MMOL/L (98-107); CREATININE SERUM 1.18 MG/DL (0.60-1.30); GFR ESTIMATED > 60; POTASSIUM 4.4 MMOL/L (3.6-5.0); SODIUM 135 MMOL/L (135-145)
[2018-12-27 07:24] LABS: GLUCOSE 460 MG/DL (70-105)
[2018-12-27] MEDS ORDERED: ROCURONIUM 10 MG/ML 5 ML SYRINGE IV ONE (07:27)
[2018-12-27] MEDS ORDERED: LIDOCAINE PF 2% 5 ML (XYLOCAINE) VIAL ONE (07:27)
[2018-12-27] MEDS ORDERED: proPOfol 200 MG/20 ML (DIPRIVAN) VIAL IV ONE (07:27)
[2018-12-27] MEDS ORDERED: ONDANSETRON 4 MG/2 ML (SDV) Z0FRAN ONE (07:27)
[2018-12-27] MEDS ORDERED: fentaNYL INJECTION 100 MCG/2 ML AMP ONE (07:28)
[2018-12-27] MEDS ORDERED: MIDAZOLAM 2 MG/2 ML (VERSED) VIAL ONE (07:28)
[2018-12-27] MEDS ORDERED: inSUlin ASPART (NovoLOG) 1 UNIT/0.01 ML (CHARGE PER UNIT) IV ONE (07:30)
--- NOTE | 2018-12-27 07:30 | Progress Note-Pre Operative ---
Pre-Operative Progress Note H&P Reviewed The H&P was reviewed, patient examined and no changes noted. Date Seen by Provider: December 27, 2018 Time Seen by Provider: 07:30 Date H&P Reviewed: December 27, 2018 Time H&P Reviewed: 07:30 Pre-Operative Diagnosis: BPH AND RETENTION LINDA SANCHEZ MD December 27, 2018 07:30
[2018-12-27] MEDS ORDERED: SEVOFLURANE (ULTANE) 15 ML INHAL SOLN ONE ×4 (08:17→08:52)
[2018-12-27] MEDS ORDERED: ESMOLOL 100 MG/10 ML (BREVIBLOC) VIAL ONE (08:17)
[2018-12-27] MEDS ORDERED: PHENYLEPHRINE 100 MCG/ML 10 ML (ANESTHESIA) SYR ONE (08:21)
[2018-12-27] MEDS ORDERED: GLYCOPYRROLATE 0.2 MG/ML (ROBINUL) 2 ML VIAL ONE (08:48)
[2018-12-27] MEDS ORDERED: NEOSTIGMINE 1 MG/ML 5 ML SYRINGE ONE (08:48)
--- NOTE | 2018-12-27 08:59 | Progress Note-Post Operative ---
Post-Operative Progess Note Surgeon (s)/[employer]of [employer] Coal Miner (s) Surgeon LINDA SANCHEZ MD [employer]of [employer] Coal [employer]er: NONE Pre-Operative Diagnosis BPH AND RETENTION Post-Operative Diagnosis SAME Procedure & Operative Findings Date of Procedure 12/27/18 Procedure Performed/Findings TURP Anesthesia Type GENERAL Estimated Blood Loss Estimated blood loss (mL): LESS THAN 50CC Specimens/Packing Specimens Removed PROSTATE CHIPS Packing: NONE LINDA SANCHEZ MD December 27, 2018 08:59
[2018-12-27] MEDS ORDERED: BELLADONNA ALK/OPIUM (B & O) 30 MG SUPP PR PRN (09:00)
[2018-12-27] MEDS ORDERED: MILK OF MAGNESIA 400 MG/5 ML 30 ML UDC PO PRN (09:00)
[2018-12-27] MEDS ORDERED: MEPERIDINE (DEMEROL) INJ 50 MG/ML IVP ONE (09:15)
[2018-12-27] MEDS ORDERED: morphine INJ 10 MG/ML 1ML (SYR OR VIAL) IVP ONE (09:15)
[2018-12-27] MEDS ORDERED: ONDANSETRON 4 MG/2 ML (SDV) Z0FRAN IVP PRN (09:15)
--- NOTE | 2018-12-27 10:05 | NUR ---
MEGA NESBITT admitted to room 419-1, with an admitting diagnosis of POST OP TURP HYPERGLYCEMIA, on 12/27/18 from [facility] via [facility], accompanied by PARTRIDGE FARMER AMANDA.MEGA NESBITT introduced to surroundings, call light, bed controls, phone, TV, temperature control, lights, meal times, smoking policy, visitor policy, side rail policy, bathrooms and showers. Patient Rights given to patient in the handbook. MEGA NESBITT verbalizes understanding that [facility] is not responsible for the loss or damage to any personal effects or valuables that are kept in the patients posession during their hospitalization. The following Patient Care Plans were discussed with the PT: Discharge Planning, INEFF BREATHING PATTERN, PAIN, ALT URINARY ELIMIINATION PATTERN, AND HIGH RISK POST O COMPLICATION. MEGA NESBITT verbalizes understanding of Interdisciplinary Patient Education. Patient and/or family were informed about the Rapid Response Team and its purpose.
--- NOTE | 2018-12-27 10:09 | Anesthesia-General Post-Op ---
General Patient Condition Mental Status/LOC: Same as Preop Cardiovascular: Satisfactory Nausea/Vomiting: Absent Respiratory: Satisfactory Pain: Controlled Complications: Absent Post Op Complications Complications None Follow Up Care/Instructions Patient Instructions None needed. Anesthesia/Patient Condition Patient Condition Patient is doing well, no complaints, stable vital signs, no apparent adverse anesthesia problems. No complications reported per nursing. CRISTINO GEORGE CRNA December 27, 2018 10:09
[2018-12-27] MEDS: LACTATED RINGERS 1,000 ML IV SCH ×3 (11:25→17:00)
[2018-12-27] MEDS: HYDROcodone/APAP 10 MG/325 MG (LORTAB) TAB PO PRN ×3 (11:37→21:27)
[2018-12-27] MEDS: DOCUSATE SODIUM 100 MG (COLACE) CAP PO SCH ×2 (11:38→20:02)
--- NOTE | 2018-12-27 13:28 | OPERATIVE REPORT ---
DATE OF SERVICE: 12/27/2018 PREOPERATIVE DIAGNOSIS: BPH with urinary retention. POSTOPERATIVE DIAGNOSIS: BPH with urinary retention. OPERATION PERFORMED: Transurethral resection of the prostate. SURGEON: Linda Sanchez MD ANESTHESIA: General. COMPLICATIONS: None. DESCRIPTION OF PROCEDURE: Under satisfactory general anesthesia, the patient in lithotomy position, genitalia were prepped and draped in usual sterile fashion. Urethra was dilated with Arsenio sound to #30 [place] easily to accommodate 27-[place]izen [place] Diaz resectoscope. The prostate was resected first circumferentially around the bladder neck which was widely open and then the lateral lobe followed by the apical and roof. The prostate was very well-resected and channel was wide open. The bleeders were cauterized as the resection was proceeding. The prostatic chips were then evacuated and cystoscopy confirmed intact ureteric orifices. There was sphincteric reflex. Capsule was visualized from any point as well as prostatic calculi. The resectoscope was removed and a 22F Almaraz inserted and connected to CBI with NS solution the return of which was clear. Estimated blood loss was 50 mL, none of which was replaced. The patient tolerated the procedure and anesthesia well and was sent to recovery room in stable condition. Job ID: [id number] DocumentID: [id number] Dictated Date: 12/27/2018 09:08:12 Assembly Line Upholsterer Date: 12/27/2018 13:27:17 Dictated By: LINDA SANCHEZ MD [facility]
--- NOTE | 2018-12-27 14:04 | NUR ---
FOUND THAT RT DID NOT HAVE IS TO ROOM RT WAS CALLED AND ADVISED
--- NOTE | 2018-12-27 14:44 | Progress Note-Hospitalist ---
Progress Note Progress Notes/Assess & Plan Date Seen 12/27/18 Time Seen by Provider: 14:41 Assessment & Plan The patient is a 68-year-old white male known to me from his visit last week. He had a urinary tract infection and bladder retention. He is now back having completed his antibiotic program. He had a plan. TURP today. He has diabetic and has not been paying attention to management. His blood sugars were as high as 450 since he has been here. Physical exam: he is alert and oriented. Lungs are clear to auscultation. CV is regular without murmur. Impression: Postop TURP. 2.diabetes mellitus, insulin-requiring. Plan: Sliding scale ALEXANDRE ALCALA MD December 27, 2018 14:44
[2018-12-27] MEDS ORDERED: inSUlin ASPART (NovoLOG) 1 UNIT/0.01 ML (CHARGE PER UNIT) SC SCH (14:45)
[2018-12-27] MEDS: inSUlin ASPART (NovoLOG) 1 UNIT/0.01 ML (CHARGE PER UNIT) SC SCH ×2 (16:15→21:32)
[2018-12-28] VITALS: BP 108/75
[2018-12-28] MEDS: HYDROcodone/APAP 10 MG/325 MG (LORTAB) TAB PO PRN ×3 (02:57→12:24)
[2018-12-28 04:00] VITALS: BP 148/73
[2018-12-28] MEDS: LACTATED RINGERS 1,000 ML IV SCH ×3 (06:16→09:21)
[2018-12-28] MEDS: inSUlin ASPART (NovoLOG) 1 UNIT/0.01 ML (CHARGE PER UNIT) SC SCH ×2 (06:22→11:41)
--- NOTE | 2018-12-28 07:31 | Anesthesia-General Post-Op ---
General Patient Condition Mental Status/LOC: Same as Preop Cardiovascular: Satisfactory Nausea/Vomiting: Absent Respiratory: Satisfactory Pain: Controlled Complications: Absent Post Op Complications Complications None Follow Up Care/Instructions Patient Instructions None needed. Anesthesia/Patient Condition Patient Condition Patient is doing well, no complaints, stable vital signs, no apparent adverse anesthesia problems. No complications reported per nursing. ZACH DONOVAN CRNA December 28, 2018 07:31
[2018-12-28 08:00] VITALS: BP 159/95
[2018-12-28] MEDS: DOCUSATE SODIUM 100 MG (COLACE) CAP PO SCH (08:05)
[2018-12-28] MEDS ORDERED: LEVOFLOXACIN 500 MG/100 ML IV 100 ML IV ONE (09:00)
--- NOTE | 2018-12-28 09:18 | Progress Note-Hospitalist ---
Subjective HPI/CC On Admission Date Seen by Provider: December 28, 2018 Time Seen by Provider: 09:30 Subjective/Events-last exam Patient doing much better I know him from psychiatric treatment unit in the past and he recognized me Very delayed response to most of my questions but that does not appear to be anything acute Resumed most of his home medications Has not voided yet since catheter removed an hour and a half ago No nausea Talked about his diabetes and how eav-rf-zrgkswe it is Review of Systems General: Fatigue Genitourinary: Retention Objective Exam Vital Signs Vital Signs Date Time Temp Pulse Resp B/P (MAP) Pulse Ox O2 Delivery O2 Flow Rate FiO2 12/28/18 08:58 94 Room Air 12/28/18 08:00 98.4 85 18 159/95 (116) 2.00 Capillary Refill : Less Than 3 Seconds General Appearance: No Apparent Distress, WD/WN, Chronically ill Respiratory: Chest Non Tender, Lungs Clear, Normal Breath Sounds, No Accessory Muscle Use, No Respiratory Distress Cardiovascular: Regular Rate, Rhythm, No Edema, No Gallop, No JVD, No Murmur, Normal Peripheral Pulses Neurologic/Psychiatric: Alert, Oriented x3, No Motor/Sensory Deficits, Depressed Affect Skin: Normal Color, Warm/Dry Results/Procedures Lab Laboratory Tests 12/28/18 09:25 Patient resulted labs reviewed. Assessment/Plan Assessment and Plan Assess & Plan/Chief Complaint Assessment: Severe urinary retention requiring TURP Cdt-yp-rsfnxyd diabetes Severe depression and mental illness Hypertension Recent severe sepsis episode Plan: Maintain sugar control Voiding trial Maintained on supportive care Diagnosis/Problems Diagnosis/Problems (1) S/P transurethral resection of prostate Status: Acute (2) Urinary retention Status: Resolved Resolution Date/Time: 12/28/18 @ 10:52 (3) Diabetes mellitus Status: Chronic Qualifiers: Diabetes mellitus type: type 2 Diabetes mellitus medical terminologist insulin use: without medical terminologist use Diabetes mellitus complication status: with unspecified complications Qualified Codes: E11.8 - Type 2 diabetes mellitus with unspecified complications TISHA ROBERTS DO December 28, 2018 09:18
--- NOTE | 2018-12-28 09:21 | Progress Note-Urology ---
Progress Note-Urology Progress Notes/Assess & Plan Progress/Assessment & Plan AFEBRILE, VSS. NO COMPLAINTS. URINE CLEAR. DC JEAN AND IV Final Diagnosis BPH AND RETENTION LINDA SANCHEZ MD December 28, 2018 09:21
[2018-12-28 09:37] LABS: BASOPHILS % (AUTO) 0 % (0-10); EOSINOPHILS # (AUTO) 0.1 10^3/uL (0.0-0.3); EOSINOPHILS % (AUTO) 1 % (0-10); HEMATOCRIT 38 % (40-54); LYMPHOCYTES # (AUTO) 1.5 X 10^3 (1.0-4.0); LYMPHOCYTES % (AUTO) 12 % (12-44); MEAN CORPUSCULAR HEMOGLOBIN 28 PG (25-34); MEAN CORPUSCULAR HGB CONC 32 G/DL (32-36); MEAN CORPUSCULAR VOLUME 86 FL (80-99); MEAN PLATELET VOLUME 9.9 FL (7.4-10.4); MONOCYTES # (AUTO) 0.8 X 10^3 (0.0-1.0); MONOCYTES % (AUTO) 6 % (0-12); NEUTROPHILS # (AUTO) 10.3 X 10^3 (1.8-7.8); NEUTROPHILS % (AUTO) 81 % (42-75); PLATELET COUNT 296 10^3/uL (130-400); RED CELL DISTRIBUTION WIDTH 12.9 % (10.0-14.5); WHITE BLOOD COUNT 12.7 10^3/uL (4.3-11.0)
[2018-12-28 09:58] LABS: ALANINE AMINOTRANSFERASE 33 U/L (0-55); ALBUMIN 3.6 GM/DL (3.2-4.5); ALKALINE PHOSPHATASE 229 U/L (40-136); BILIRUBIN,TOTAL 0.5 MG/DL (0.1-1.0); BUN/CREATININE RATIO 13; CALCIUM 9.5 MG/DL (8.5-10.1); CARBON DIOXIDE 21 MMOL/L (21-32); CHLORIDE 98 MMOL/L (98-107); CREATININE SERUM 0.79 MG/DL (0.60-1.30); GFR ESTIMATED > 60; GLUCOSE 269 MG/DL (70-105); POTASSIUM 4.3 MMOL/L (3.6-5.0); SODIUM 131 MMOL/L (135-145); TOTAL PROTEIN 7.4 GM/DL (6.4-8.2)
[2018-12-28] MEDS ORDERED: GABAPENTIN 300 MG (NEURONTIN) CAP PO PRN (10:15)
[2018-12-28] MEDS ORDERED: glyBURIDE 2.5 MG (MICRONASE) TAB PO NR (11:00)
[2018-12-28 12:00] VITALS: BP 162/95
--- NOTE | 2018-12-28 12:53 | Discharge Inst-Urology ---
Discharge Inst-Urology Discharge Medications New, Converted, or Re-newed RX: RX on Chart Patient Instructions/Follow Up Plan Please make appointment to been seen in office in 2 weeks. Rest till then Off Proscar and Flomax Keep bowels soft and moving Follow up with dr Benítez for control of Diabetes Increase oral fluids for 48 hours and then as needed. Diet as tolerated. If questions or concerns contact your physician Or seek help at emergency department. LINDA SANCHEZ MD December 28, 2018 12:53
--- NOTE | 2018-12-28 13:30 | NUR ---
MEGA NESBITT demonstrates understanding of discharge instructions and accurately returns instructions upon questioning. Copy of Post-Discharge Instructions and Medication Discharge Instructions given to PATIENT. MEGA NESBITT is able to manage continuing needs after discharge. Patients belongings returned to PATIENT. Skin dry and intact; no breakdown noted. Patient discharged from [facility]- on 12/28/18 at 1330 . MEGA NESBITT left floor via AMBULATORY, accompanied by STAFF.
[2018-12-28] MEDS ORDERED: metFORMIN 500 MG (GLUCOPHAGE) TAB PO SCH (17:00)
[2018-12-28] MEDS ORDERED: MELATONIN 3 MG TABLET PO SCH (21:00)
[2018-12-28] MEDS ORDERED: QUEtiapine 200 MG (SEROquel) TAB IMMEDIATE RELEASE PO SCH (21:00)
[2018-12-28] MEDS ORDERED: ATORVASTATIN 40 MG (LIPITOR) TABLET PO SCH (21:00)
[2018-12-28] MEDS ORDERED: GABAPENTIN 300 MG (NEURONTIN) CAP PO SCH (21:00)
[2018-12-29] MEDS ORDERED: glyBURIDE 2.5 MG (MICRONASE) TAB PO SCH (06:30)
[2018-12-29] MEDS ORDERED: VITAMIN D3 400 UNITS (CHOLECALCIFEROL) TABLET PO SCH (09:00)
[2018-12-29] MEDS ORDERED: CARVEDILOL 12.5 MG (COREG) TABLET PO SCH (09:00)
== END 2018-12-28 13:30 | disposition home or self-care (01) ==
LOC: SDC 05:56 → 4TH 10:05 → SDC 12-28 13:30
PROVIDERS: ATTEND Urology
DX: N40.1 Benign prostatic hyperplasia with lower urinary tract symptoms (principal); R33.9 Retention of urine, unspecified; E11.65 Type 2 diabetes mellitus with hyperglycemia; E11.40 Type 2 diabetes mellitus with diabetic neuropathy, unspecified; F32.9 Major depressive disorder, single episode, unspecified; I10 Essential (primary) hypertension; F79 Unspecified intellectual disabilities; N31.9 Neuromuscular dysfunction of bladder, unspecified; N52.9 Male erectile dysfunction, unspecified; E78.5 Hyperlipidemia, unspecified; E66.9 Obesity, unspecified; Z86.19 Personal history of other infectious and parasitic diseases; Z68.34 Body mass index [BMI] 34.0-34.9, adult; Z79.899 Other long term (current) drug therapy; Z79.84 Long term (current) use of oral hypoglycemic drugs; Z87.891 Personal history of nicotine dependence
CPT/HCPCS: 36415; 80048; 80053; 82962; 85025; 85027; 86850; 86900; 86901; 87081; 94664

== ENCOUNTER 2019-03-08 09:57 | Inpatient (IN) | payer MEDICARE, OTHER ==
[~2019-03-08] VITALS: Ht 185.4 cm; Wt 114.8 kg
[~2019-03-08 09:57] MED LIST changes: -LACTATED RINGERS 1,000 ML IV PRN
[2019-03-08] MEDS ORDERED: inSUlin (REGULAR) HUMAN 1 UNIT/0.01 ML (CHARGE PER UNIT) IV ONE ×2 (10:30→12:00)
[2019-03-08] MEDS ORDERED: NS IV 1000 ML 1,000 ML IV ONE ×2 (10:30→11:07)
--- OUTSIDE RECORDS SUMMARY | 2019-03-08 10:31 | XMS REPORT | Continuity of Care Document ---
Author Organization Unknown Address Unknown Allergies Active Description Code Type Severity Reaction Onset Reported/Identified Relationship to Patient Clinical Status Yes No Known Drug Allergies [id number] Drug Allergy Unknown N/A 12/17/2018 Medications There is no data. Problems Date Dx Coded Attending Type Code Diagnosis Diagnosed By 12/21/2018 LISSA GUILLEN MD, Ot A41.59 OTHER GRAM-NEGATIVE SEPSIS 12/21/2018 LISSA GUILLEN MD, Ot E11.10 TYPE 2 DIABETES MELLITUS WITH KETOACIDOS 12/21/2018 LISSA GUILLEN MD, Ot E66.9 OBESITY, UNSPECIFIED 12/21/2018 LISSA GUILLEN MD, Ot E78.00 PURE HYPERCHOLESTEROLEMIA, UNSPECIFIED 12/21/2018 LISSA GUILLEN MD Ot F32.9 MAJOR DEPRESSIVE DISORDER, SINGLE EPISOD 12/21/2018 LISSA GUILLEN MD Ot I10 ESSENTIAL (PRIMARY) HYPERTENSION 12/21/2018 LISSA GUILLEN MD, Ot N31.9 NEUROMUSCULAR DYSFUNCTION OF BLADDER, UN 12/21/2018 LISSA GUILLEN MD Ot N39.0 URINARY TRACT INFECTION, SITE NOT SPECIF 12/21/2018 LISSA GUILLEN MD Ot N40.1 BENIGN PROSTATIC HYPERPLASIA WITH LOWER 12/21/2018 LISSA GUILLEN MD Ot R06.02 SHORTNESS OF BREATH 12/21/2018 LISSA GUILLEN MD Ot R33.8 OTHER RETENTION OF URINE 12/21/2018 LISSA GUILLEN MD Ot Z68.35 BODY MASS INDEX (BMI) 35.0-35.9, ADULT 12/21/2018 LISSA GUILLEN MD Ot Z85.828 PERSONAL HISTORY OF OTHER MALIGNANT NEOP 12/21/2018 LISSA GUILLEN MD Ot Z91.14 PATIENT'S OTHER NONCOMPLIANCE WITH MEDIC 12/21/2018 LISSA GUILLEN MD Ot A41.59 OTHER GRAM-NEGATIVE SEPSIS 12/21/2018 LISSA GUILLEN MD Ot E11.10 TYPE 2 DIABETES MELLITUS WITH KETOACIDOS 12/21/2018 LISSA GUILLEN MD Ot E66.9 OBESITY, UNSPECIFIED 12/21/2018 LISSA GUILLEN MD Ot E78.00 PURE HYPERCHOLESTEROLEMIA, UNSPECIFIED 12/21/2018 LISSA GUILLEN MD Ot F32.9 MAJOR DEPRESSIVE DISORDER, SINGLE EPISOD 12/21/2018 LISSA GUILLEN MD Ot I10 ESSENTIAL (PRIMARY) HYPERTENSION 12/21/2018 LISSA GUILLEN MD Ot N31.9 NEUROMUSCULAR DYSFUNCTION OF BLADDER, UN 12/21/2018 LISSA GUILLEN MD Ot N39.0 URINARY TRACT INFECTION, SITE NOT SPECIF 12/21/2018 LISSA GUILLEN MD Ot N40.1 BENIGN PROSTATIC HYPERPLASIA WITH LOWER 12/21/2018 LISSA GUILLEN MD Ot R06.02 SHORTNESS OF BREATH 12/21/2018 LISSA GUILLEN MD Ot R33.8 OTHER RETENTION OF URINE 12/21/2018 LISSA GUILLEN MD Ot T81.44XA SEPSIS FOLLOWING A PROCEDURE, INITIAL EN 12/21/2018 LISSA GUILLEN MD Ot Z68.35 BODY MASS INDEX (BMI) 35.0-35.9, ADULT 12/21/2018 LISSA GUILLEN MD Ot Z85.828 PERSONAL HISTORY OF OTHER MALIGNANT NEOP 12/21/2018 LISSA GUILLEN MD Ot Z91.14 PATIENT'S OTHER NONCOMPLIANCE WITH MEDIC 12/27/2018 LINDA SANCHEZ MD Ot Z01.818 ENCOUNTER FOR OTHER PREPROCEDURAL EXAMIN 12/28/2018 LINDA SANCHEZ MD Ot E11.40 TYPE 2 DIABETES MELLITUS WITH DIABETIC N 12/28/2018 LINDA SANCHEZ MD Ot E11.65 TYPE 2 DIABETES MELLITUS WITH HYPERGLYCE 12/28/2018 LINDA SANCHEZ MD Ot E66.9 OBESITY, UNSPECIFIED 12/28/2018 LINDA SANCHEZ MD Ot E78.5 HYPERLIPIDEMIA, UNSPECIFIED 12/28/2018 LINDA SANCHEZ MD Ot F32.9 MAJOR DEPRESSIVE DISORDER, SINGLE EPISOD 12/28/2018 LINDA SANCHEZ MD, Ot F79 UNSPECIFIED INTELLECTUAL DISABILITIES 12/28/2018 LINDA SANCHEZ MD, Ot I10 ESSENTIAL (PRIMARY) HYPERTENSION 12/28/2018 LINDA SANCHEZ MD, Ot N31.9 NEUROMUSCULAR DYSFUNCTION OF BLADDER, UN 12/28/2018 LINDA SANCHEZ MD, Ot N40.1 BENIGN PROSTATIC HYPERPLASIA WITH LOWER 12/28/2018 LINDA SANCHEZ MD, Ot N52.9 MALE ERECTILE DYSFUNCTION, UNSPECIFIED 12/28/2018 LINDA SANCHEZ MD, Ot R33.9 RETENTION OF URINE, UNSPECIFIED 12/28/2018 LINDA SANCHEZ MD, Ot Z68.34 BODY MASS INDEX (BMI) 34.0-34.9, ADULT 12/28/2018 LINDA SANCHEZ MD, Ot Z79.84 TRANSFER TABLE OPERATOR (CURRENT) USE OF ORAL HYPOGLYC 12/28/2018 LINDA SANCHEZ MD, Ot Z79.899 OTHER LONGTERM (CURRENT) DRUG THERAPY 12/28/2018 LINDA SANCHEZ MD, Ot Z86.19 PERSONAL HISTORY OF OTHER INFECTIOUS AND 12/28/2018 LINDA SANCHEZ MD, Ot Z87.891 PERSONAL HISTORY OF NICOTINE DEPENDENCE 01/04/2019 LINDA SANCHEZ MD Ot E11.40 TYPE 2 DIABETES MELLITUS WITH DIABETIC N 01/04/2019 LINDA SANCHEZ MD, Ot E11.65 TYPE 2 DIABETES MELLITUS WITH HYPERGLYCE 01/04/2019 LINDA SANCHEZ MD, Ot E66.9 OBESITY, UNSPECIFIED 01/04/2019 LINDA SANCHEZ MD, Ot E78.5 HYPERLIPIDEMIA, UNSPECIFIED 01/04/2019 LINDA SANCHEZ MD, Ot F32.9 MAJOR DEPRESSIVE DISORDER, SINGLE EPISOD 01/04/2019 LINDA SANCHEZ MD, Ot F79 UNSPECIFIED INTELLECTUAL DISABILITIES 01/04/2019 LINDA SANCHEZ MD, Ot I10 ESSENTIAL (PRIMARY) HYPERTENSION 01/04/2019 LINDA SANCHEZ MD, Ot N31.9 NEUROMUSCULAR DYSFUNCTION OF BLADDER, UN 01/04/2019 LINDA SANCHEZ MD, Ot N40.1 BENIGN PROSTATIC HYPERPLASIA WITH LOWER 01/04/2019 LINDA SANCHEZ MD, Ot N52.9 MALE ERECTILE DYSFUNCTION, UNSPECIFIED 01/04/2019 LINDA SANCHEZ MD, Ot R33.9 RETENTION OF URINE, UNSPECIFIED 01/04/2019 LINDA SANCHEZ MD, Ot Z68.34 BODY MASS INDEX (BMI) 34.0-34.9, ADULT 01/04/2019 LINDA SANCHEZ MD, Ot Z79.84 TRANSFER TABLE OPERATOR (CURRENT) USE OF ORAL HYPOGLYC 01/04/2019 LINDA SANCHEZ MD, Ot Z79.899 OTHER TRANSFER TABLE OPERATOR (CURRENT) DRUG THERAPY 01/04/2019 LINDA SANCHEZ MD, Ot Z86.19 PERSONAL HISTORY OF OTHER INFECTIOUS AND 01/04/2019 LINDA SANCHEZ MD, Ot Z87.891 PERSONAL HISTORY OF NICOTINE DEPENDENCE Procedures There is no data. Results Test Result Range LIPID PANEL - 11/30/18 11:00 CHOLESTEROL, TOTAL 175 mg/dL <200 HDL CHOLESTEROL 44 mg/dL >40 TRIGLYCERIDES 362 mg/dL <150 LDL-CHOLESTEROL 83 mg/dL (calc) NRG CHOL/HDLC RATIO 4.0 (calc) <5.0 NON HDL CHOLESTEROL 131 mg/dL (calc) <130 Complete blood count (CBC) with automated white blood cell (WBC) differential - 12/17/18 15:43 Blood leukocytes automated count (number/volume) 7.9 10*3/uL 4.3-11.0 Blood erythrocytes automated count (number/volume) 5.14 10*6/uL 4.35-5.85 Venous blood hemoglobin measurement (mass/volume) 14.5 g/dL 13.3-17.7 Blood hematocrit (volume fraction) 45 % 40-54 Automated erythrocyte mean corpuscular volume 87 [foz_us] 80-99 Automated erythrocyte mean corpuscular hemoglobin (mass per erythrocyte) 28 pg 25-34 Automated erythrocyte mean corpuscular hemoglobin concentration measurement (mass/volume) 32 g/dL 32-36 Automated erythrocyte distribution width ratio 12.6 % 10.0- 14.5 Automated blood platelet count (count/volume) 114 10*3/uL 130-400 Automated blood platelet mean volume measurement 11.3 [foz_us] 7.4-10.4 Automated blood neutrophils/100 leukocytes 86 % 42-75 Automated blood lymphocytes/100 leukocytes 5 % 12-44 Blood monocytes/100 leukocytes 9 % 0-12 Automated blood eosinophils/100 leukocytes 0 % 0-10 Automated blood basophils/100 leukocytes 0 % 0-10 Blood neutrophils automated count (number/volume) 6.8 10*3 1.8-7.8 Blood lymphocytes automated count (number/volume) 0.4 10*3 1.0-4.0 Blood monocytes automated count (number/volume) 0.7 10*3 0.0- 1.0 Automated eosinophil count 0.0 10*3/uL 0.0-0.3 Automated blood basophil count (count/volume) 0.0 10*3/uL 0.0-0.1 Blood manual differential performed detection - 12/17/18 15:43 Blood monocytes/100 leukocytes 3 % NRG Manual blood segmented neutrophils/100 leukocytes 78 % NRG Blood band neutrophils/100 leukocytes 15 % NRG Manual blood lymphocytes/100 leukocytes 3 % NRG Manual eosinophils/100 leukocytes in nose 0 % NRG Manual blood basophils/100 leukocytes 0 % NRG Manual blood metamyelocytes/100 leukocytes 1 % NRG PT panel in platelet poor plasma by coagulation assay - 12/17/18 15:43 Prothrombin time (PT) in platelet poor plasma by coagulation assay 13.9 s 12.2-14.7 INR in platelet poor plasma or blood by coagulation assay 1.0 0.8-1.4 Activated partial thromboplastin time (aPTT) in platelet poor plasma bycoagulation assay - 12/17/18 15:43 Activated partial thromboplastin time (aPTT) in platelet poor plasma bycoagulation assay 27 s 24-35 Fibrin D-dimer FEU measurement in platelet poor plasma (mass/volume) - 12/17/18 15:43 Fibrin D-dimer FEU measurement in platelet poor plasma (mass/volume) 1.45 ug/mL 0.00-0.49 Comprehensive metabolic panel - 12/17/18 15:43 Serum or plasma sodium measurement (moles/volume) 128 mmol/L 135-145 Serum or plasma potassium measurement (moles/volume) 4.5 mmol/L 3.6-5.0 Serum or plasma chloride measurement (moles/volume) 87 mmol/L 98-107 Carbon dioxide 11 mmol/L 21-32 Serum or plasma anion gap determination (moles/volume) 30 mmol/L 5-14 Serum or plasma urea nitrogen measurement (mass/volume) 15 mg/dL 7-18 Serum or plasma creatinine measurement (mass/volume) 0.92 mg/dL 0.60-1.30 Serum or plasma urea nitrogen/creatinine mass ratio 16 NRG Serum or plasma creatinine measurement with calculation of estimated glomerular filtration rate > NRG Serum or plasma glucose measurement (mass/volume) 420 mg/dL 70-105 Serum or plasma calcium measurement (mass/volume) 9.4 mg/dL 8.5-10.1 Serum or plasma total bilirubin measurement (mass/volume) 0.9 mg/dL 0.1-1.0 Serum or plasma alkaline phosphatase measurement (enzymatic activity/volume) 138 U/L 40-136 Serum or plasma aspartate aminotransferase measurement (enzymatic activity/volume) 27 U/L 5-34 Serum or plasma alanine aminotransferase measurement (enzymatic activity/volume) 42 U/L 0-55 Serum or plasma protein measurement (mass/volume) 8.2 g/dL 6.4-8.2 Serum or plasma albumin measurement (mass/volume) 4.3 g/dL 3.2-4.5 CALCIUM CORRECTED 9.2 mg/dL 8.5-10.1 Magnesium - 12/17/18 15:43 Magnesium 1.8 mg/dL 1.8-2.4 TROPONIN T - 12/17/18 15:43 TROPONIN T 10 % <=15 Blood lactic acid measurement (moles/volume) - 12/17/18 15:43 Blood lactic acid measurement (moles/volume) 1.38 mmol/L 0.50- 2.00 PROBNP FS - 12/17/18 15:43 PROBNP FS 455.4 pg/mL <75.0 Lipase - 12/17/18 15:43 Lipase 12 U/L 8-78 Bacterial blood culture - 12/17/18 15:43 FREE TEXT EXTERNAL PROBABLE ENTEROBACTER AEROGENES NR QUANTITY OF GROWTH Isolated [facility] Bacterial blood culture [id number] [facility] FREE TEXT ENTRY 2 REFER TO CULTURE [id number] FOR SENSITIVITY NR Bacterial blood culture - 12/17/18 15:49 FREE TEXT EXTERNAL RML REPORTED ID 12/19 12:05 NRG QUANTITY OF GROWTH Isolated NR Bacterial blood culture [id number] [facility] FREE TEXT ENTRY 2 RML REPORTED SUSCEPTIBILITY 12/20 09:05 NR RML SENSITIVITY MAIN LAB - 12/17/18 15:49 Gentamicin susceptibility test by minimum inhibitory concentration <= NRG Trimethoprim/sulfamethoxazole susceptibility test by minimum inhibitoryconcentration S NRG Levofloxacin susceptibility test by minimum inhibitory concentration <= NRG Cefazolin susceptibility test by minimum inhibitory concentration > NRG Ceftriaxone susceptibility test by minimum inhibitory concentration <= NRG Piperacillin/tazobactam susceptibility test by minimum inhibitory concentration = NR Ciprofloxacin susceptibility test by minimum inhibitory concentration <= NRG Meropenem susceptibility test by minimum inhibitory concentration <= NRG Amoxicillin and clavulanate potassium susc DORIAN > NR Complete urinalysis with reflex to culture - 12/17/18 16:00 Urine color determination YELLOW NRG Urine clarity determination CLEAR NRG Urine pH measurement by test strip 5.5 5-9 Specific gravity of urine by test strip 1.020 1.016-1.022 Urine protein assay by test strip, semi-quantitative 1+ NEGATIVE Urine glucose detection by automated test strip 2+ NEGATIVE Erythrocytes detection in urine sediment by light microscopy 2+ NEGATIVE Urine ketones detection by automated test strip 3+ NEGATIVE Urine nitrite detection by test strip POSITIVE NEGATIVE Urine total bilirubin detection by test strip NEGATIVE NEGATIVE Urine urobilinogen measurement by automated test strip (mass/volume) 0.2 mg/dL NORMAL Urine leukocyte esterase detection by dipstick 1+ NEGATIVE Automated urine sediment erythrocyte count by microscopy (number/high power field) [HPF] NRG Automated urine sediment leukocyte count by microscopy (number/high power field) [HPF] NRG Bacteria detection in urine sediment by light microscopy FEW NRG Crystals detection in urine sediment by light microscopy NONE NRG Casts detection in urine sediment by light microscopy NONE NRG Mucus detection in urine sediment by light microscopy NEGATIVE NRG Complete urinalysis with reflex to culture YES NRG Bacterial urine culture - 12/17/18 16:00 Bacterial urine culture [id number] NRG COLONY COUNT >100,000/ML NR FTX;REPORTABLE SUSCEPTIBILITY REPORTED 5--19, 1405. [facility] RML Sensitivity Panel - 12/17/18 16:00 Gentamicin susceptibility test by minimum inhibitory concentration <= NRG Trimethoprim/sulfamethoxazole susceptibility test by minimum inhibitoryconcentration <= NRG Levofloxacin susceptibility test by minimum inhibitory concentration <= NR Ampicillin susceptibility test by minimum inhibitory concentration > NR Cefazolin susceptibility test by minimum inhibitory concentration > NR Ceftriaxone susceptibility test by minimum inhibitory concentration <= NR Ciprofloxacin susceptibility test by minimum inhibitory concentration <= NR Meropenem susceptibility test by minimum inhibitory concentration <= NR Nitrofurantoin susceptibility test by minimum inhibitory concentration > NR Amoxicillin and clavulanate potassium [facility] [place] DORIAN > NRG Arterial blood gas measurement - 12/17/18 16:50 Blood pCO2 22 mm[Hg] 35-45 Blood pO2 72 mm[Hg] 79-93 Arterial blood bicarbonate measurement (moles/volume) 11 mmol/L 23-27 Arterial blood base excess by calculation -13.7 mmol/L -2.5-2.5 Arterial blood oxygen saturation measurement 92 % 94-100 * Inhaled oxygen flow rate ROOM AIR NRG Arterial blood pH measurement with patient temperature correction 7.30 7.37-7.43 Arterial blood carbon dioxide, total measurement (moles/volume) 11.5 mmol/L 21.0-31.0 Body site RT WRIST NRG Assessment of wrist artery patency prior to arterial puncture OK NRG Setting of ventilation mode NO NRG Measurement of body temperature 101.5 NRG Capillary blood glucose measurement by glucometer (mass/volume) - 12/17/18 18:33 Capillary blood glucose measurement by glucometer (mass/volume) 275 mg/dL 70-110 Whole blood basic metabolic panel - 12/17/18 19:12 Serum or plasma sodium measurement (moles/volume) 132 mmol/L 135-145 Serum or plasma potassium measurement (moles/volume) 3.7 mmol/L 3.6-5.0 Serum or plasma chloride measurement (moles/volume) 100 mmol/L 98-107 Carbon dioxide 14 mmol/L 21-32 Serum or plasma anion gap determination (moles/volume) 18 mmol/L 5-14 Serum or plasma urea nitrogen measurement (mass/volume) 13 mg/dL 7-18 Serum or plasma creatinine measurement (mass/volume) 1.25 mg/dL 0.60-1.30 Serum or plasma urea nitrogen/creatinine mass ratio 10 NRG Serum or plasma creatinine measurement with calculation of estimated glomerular filtration rate 58 NRG Serum or plasma glucose measurement (mass/volume) 255 mg/dL 70-105 Serum or plasma calcium measurement (mass/volume) 8.6 mg/dL 8.5-10.1 Capillary blood glucose measurement by glucometer (mass/volume) - 12/17/18 19:31 Capillary blood glucose measurement by glucometer (mass/volume) 293 mg/dL 70-110 Capillary blood glucose measurement by glucometer (mass/volume) - 12/17/18 20:53 Capillary blood glucose measurement by glucometer (mass/volume) 240 mg/dL 70-110 Whole blood basic metabolic panel - 12/17/18 21:40 Serum or plasma sodium measurement (moles/volume) 131 mmol/L 135-145 Serum or plasma potassium measurement (moles/volume) 3.9 mmol/L 3.6-5.0 Serum or plasma chloride measurement (moles/volume) 100 mmol/L 98-107 Carbon dioxide 16 mmol/L 21-32 Serum or plasma anion gap determination (moles/volume) 15 mmol/L 5-14 Serum or plasma urea nitrogen measurement (mass/volume) 12 mg/dL 7-18 Serum or plasma creatinine measurement (mass/volume) 1.16 mg/dL 0.60-1.30 Serum or plasma urea nitrogen/creatinine mass ratio 10 NRG Serum or plasma creatinine measurement with calculation of estimated glomerular filtration rate > NRG Serum or plasma glucose measurement (mass/volume) 287 mg/dL 70-105 Serum or plasma calcium measurement (mass/volume) 8.5 mg/dL 8.5-10.1 Capillary blood glucose measurement by glucometer (mass/volume) - 12/17/18 22:04 Capillary blood glucose measurement by glucometer (mass/volume) 261 mg/dL 70-110 Capillary blood glucose measurement by glucometer (mass/volume) - 12/17/18 22:59 Capillary blood glucose measurement by glucometer (mass/volume) 327 mg/dL 70-110 Capillary blood glucose measurement by glucometer (mass/volume) - 12/17/18 23:58 Capillary blood glucose measurement by glucometer (mass/volume) 312 mg/dL 70-110 Capillary blood glucose measurement by glucometer (mass/volume) - 12/18/18 01:04 Capillary blood glucose measurement by glucometer (mass/volume) 263 mg/dL 70-110 Complete blood count (CBC) with automated white blood cell (WBC) differential - 12/18/18 01:30 Blood leukocytes automated count (number/volume) 6.9 10*3/uL 4.3-11.0 Blood erythrocytes automated count (number/volume) 4.01 10*6/uL 4.35-5.85 Venous blood hemoglobin measurement (mass/volume) 11.2 g/dL 13.3-17.7 Blood hematocrit (volume fraction) 34 % 40-54 Automated erythrocyte mean corpuscular volume 84 [foz_us] 80-99 Automated erythrocyte mean corpuscular hemoglobin (mass per erythrocyte) 28 pg 25-34 Automated erythrocyte mean corpuscular hemoglobin concentration measurement (mass/volume) 33 g/dL 32-36 Automated erythrocyte distribution width ratio 13.0 % 10.0- 14.5 Automated blood platelet count (count/volume) 104 10*3/uL 130-400 Automated blood platelet mean volume measurement 10.8 [foz_us] 7.4-10.4 Automated blood neutrophils/100 leukocytes 83 % 42-75 Automated blood lymphocytes/100 leukocytes 10 % 12-44 Blood monocytes/100 leukocytes 6 % 0-12 Automated blood eosinophils/100 leukocytes 0 % 0-10 Automated blood basophils/100 leukocytes 0 % 0-10 Blood neutrophils automated count (number/volume) 5.7 10*3 1.8-7.8 Blood lymphocytes automated count (number/volume) 0.7 10*3 1.0-4.0 Blood monocytes automated count (number/volume) 0.4 10*3 0.0- 1.0 Automated eosinophil count 0.0 10*3/uL 0.0-0.3 Automated blood basophil count (count/volume) 0.0 10*3/uL 0.0-0.1 Comprehensive metabolic panel - 12/18/18 01:30 Serum or plasma sodium measurement (moles/volume) 128 mmol/L 135-145 Serum or plasma potassium measurement (moles/volume) 3.7 mmol/L 3.6-5.0 Serum or plasma chloride measurement (moles/volume) 101 mmol/L 98-107 Carbon dioxide 17 mmol/L 21-32 Serum or plasma anion gap determination (moles/volume) 10 mmol/L 5-14 Serum or plasma urea nitrogen measurement (mass/volume) 14 mg/dL 7-18 Serum or plasma creatinine measurement (mass/volume) 1.08 mg/dL 0.60-1.30 Serum or plasma urea nitrogen/creatinine mass ratio 13 NRG Serum or plasma creatinine measurement with calculation of estimated glomerular filtration rate > NRG Serum or plasma glucose measurement (mass/volume) 235 mg/dL 70-105 Serum or plasma calcium measurement (mass/volume) 8.0 mg/dL 8.5-10.1 Serum or plasma total bilirubin measurement (mass/volume) 0.7 mg/dL 0.1-1.0 Serum or plasma alkaline phosphatase measurement (enzymatic activity/volume) 86 U/L 40-136 Serum or plasma aspartate aminotransferase measurement (enzymatic activity/volume) 21 U/L 5-34 Serum or plasma alanine aminotransferase measurement (enzymatic activity/volume) 32 U/L 0-55 Serum or plasma protein measurement (mass/volume) 5.9 g/dL 6.4-8.2 Serum or plasma albumin measurement (mass/volume) 3.3 g/dL 3.2-4.5 CALCIUM CORRECTED 8.6 mg/dL 8.5-10.1 Magnesium - 12/18/18 01:30 Magnesium 1.5 mg/dL 1.8-2.4 Capillary blood glucose measurement by glucometer (mass/volume) - 12/18/18 03:55 Capillary blood glucose measurement by glucometer (mass/volume) 322 mg/dL 70-110 Capillary blood glucose measurement by glucometer (mass/volume) - 12/18/18 05:03 Capillary blood glucose measurement by glucometer (mass/volume) 198 mg/dL 70-110 Capillary blood glucose measurement by glucometer (mass/volume) - 12/18/18 06:08 Capillary blood glucose measurement by glucometer (mass/volume) 212 mg/dL 70-110 Capillary blood glucose measurement by glucometer (mass/volume) - 12/18/18 07:18 Capillary blood glucose measurement by glucometer (mass/volume) 250 mg/dL 70-110 Capillary blood glucose measurement by glucometer (mass/volume) - 12/18/18 08:13 Capillary blood glucose measurement by glucometer (mass/volume) 247 mg/dL 70-110 Whole blood basic metabolic panel - 12/18/18 09:10 Serum or plasma sodium measurement (moles/volume) 127 mmol/L 135-145 Serum or plasma potassium measurement (moles/volume) 3.5 mmol/L 3.6-5.0 Serum or plasma chloride measurement (moles/volume) 103 mmol/L 98-107 Carbon dioxide 14 mmol/L 21-32 Serum or plasma anion gap determination (moles/volume) 10 mmol/L 5-14 Serum or plasma urea nitrogen measurement (mass/volume) 9 mg/dL 7-18 Serum or plasma creatinine measurement (mass/volume) 0.82 mg/dL 0.60-1.30 Serum or plasma urea nitrogen/creatinine mass ratio 11 NRG Serum or plasma creatinine measurement with calculation of estimated glomerular filtration rate > NRG Serum or plasma glucose measurement (mass/volume) 223 mg/dL 70-105 Serum or plasma calcium measurement (mass/volume) 7.9 mg/dL 8.5-10.1 Capillary blood glucose measurement by glucometer (mass/volume) - 12/18/18 09:32 Capillary blood glucose measurement by glucometer (mass/volume) 223 mg/dL 70-110 Capillary blood glucose measurement by glucometer (mass/volume) - 12/18/18 10:23 Capillary blood glucose measurement by glucometer (mass/volume) 245 mg/dL 70-110 Capillary blood glucose measurement by glucometer (mass/volume) - 12/18/18 11:33 Capillary blood glucose measurement by glucometer (mass/volume) 174 mg/dL 70-110 Capillary blood glucose measurement by glucometer (mass/volume) - 12/18/18 13:00 Capillary blood glucose measurement by glucometer (mass/volume) 105 mg/dL 70-110 Capillary blood glucose measurement by glucometer (mass/volume) - 12/18/18 13:34 Capillary blood glucose measurement by glucometer (mass/volume) 110 mg/dL 70-110 Whole blood basic metabolic panel - 12/18/18 14:19 Serum or plasma sodium measurement (moles/volume) 134 mmol/L 135-145 Serum or plasma potassium measurement (moles/volume) 4.1 mmol/L 3.6-5.0 Serum or plasma chloride measurement (moles/volume) 106 mmol/L 98-107 Carbon dioxide 17 mmol/L 21-32 Serum or plasma anion gap determination (moles/volume) 11 mmol/L 5-14 Serum or plasma urea nitrogen measurement (mass/volume) 10 mg/dL 7-18 Serum or plasma creatinine measurement (mass/volume) 0.81 mg/dL 0.60-1.30 Serum or plasma urea nitrogen/creatinine mass ratio 12 NRG Serum or plasma creatinine measurement with calculation of estimated glomerular filtration rate > NRG Serum or plasma glucose measurement (mass/volume) 122 mg/dL 70-105 Serum or plasma calcium measurement (mass/volume) 8.5 mg/dL 8.5-10.1 Capillary blood glucose measurement by glucometer (mass/volume) - 12/18/18 16:07 Capillary blood glucose measurement by glucometer (mass/volume) 172 mg/dL 70-110 Capillary blood glucose measurement by glucometer (mass/volume) - 12/18/18 17:06 Capillary blood glucose measurement by glucometer (mass/volume) 192 mg/dL 70-110 Whole blood basic metabolic panel - 12/18/18 17:18 Serum or plasma sodium measurement (moles/volume) 131 mmol/L 135-145 Serum or plasma potassium measurement (moles/volume) 4.3 mmol/L 3.6-5.0 Serum or plasma chloride measurement (moles/volume) 103 mmol/L 98-107 Carbon dioxide 18 mmol/L 21-32 Serum or plasma anion gap determination (moles/volume) 10 mmol/L 5-14 Serum or plasma urea nitrogen measurement (mass/volume) 11 mg/dL 7-18 Serum or plasma creatinine measurement (mass/volume) 0.82 mg/dL 0.60-1.30 Serum or plasma urea nitrogen/creatinine mass ratio 13 NRG Serum or plasma creatinine measurement with calculation of estimated glomerular filtration rate > NRG Serum or plasma glucose measurement (mass/volume) 194 mg/dL 70-105 Serum or plasma calcium measurement (mass/volume) 8.4 mg/dL 8.5-10.1 Capillary blood glucose measurement by glucometer (mass/volume) - 12/18/18 18:15 Capillary blood glucose measurement by glucometer (mass/volume) 210 mg/dL 70-110 Capillary blood glucose measurement by glucometer (mass/volume) - 12/18/18 21:16 Capillary blood glucose measurement by glucometer (mass/volume) 266 mg/dL 70-110 Magnesium - 12/19/18 03:10 Magnesium 1.8 mg/dL 1.8-2.4 Complete blood count (CBC) with automated white blood cell (WBC) differential - 12/19/18 03:10 Blood leukocytes automated count (number/volume) 5.6 10*3/uL 4.3-11.0 Blood erythrocytes automated count (number/volume) 4.04 10*6/uL 4.35-5.85 Venous blood hemoglobin measurement (mass/volume) 11.3 g/dL 13.3-17.7 Blood hematocrit (volume fraction) 34 % 40-54 Automated erythrocyte mean corpuscular volume 84 [foz_us] 80-99 Automated erythrocyte mean corpuscular hemoglobin (mass per erythrocyte) 28 pg 25-34 Automated erythrocyte mean corpuscular hemoglobin concentration measurement (mass/volume) 33 g/dL 32-36 Automated erythrocyte distribution width ratio 12.8 % 10.0- 14.5 Automated blood platelet count (count/volume) 82 10*3/uL 130- 400 Automated blood platelet mean volume measurement 11.6 [foz_us] 7.4-10.4 Automated blood neutrophils/100 leukocytes 73 % 42-75 Automated blood lymphocytes/100 leukocytes 10 % 12-44 Blood monocytes/100 leukocytes 16 % 0-12 Automated blood eosinophils/100 leukocytes 0 % 0-10 Automated blood basophils/100 leukocytes 0 % 0-10 Blood neutrophils automated count (number/volume) 4.1 10*3 1.8-7.8 Blood lymphocytes automated count (number/volume) 0.6 10*3 1.0-4.0 Blood monocytes automated count (number/volume) 0.9 10*3 0.0- 1.0 Automated eosinophil count 0.0 10*3/uL 0.0-0.3 Automated blood basophil count (count/volume) 0.0 10*3/uL 0.0-0.1 Whole blood basic metabolic panel - 12/19/18 03:10 Serum or plasma sodium measurement (moles/volume) 134 mmol/L 135-145 Serum or plasma potassium measurement (moles/volume) 3.7 mmol/L 3.6-5.0 Serum or plasma chloride measurement (moles/volume) 106 mmol/L 98-107 Carbon dioxide 17 mmol/L 21-32 Serum or plasma anion gap determination (moles/volume) 11 mmol/L 5-14 Serum or plasma urea nitrogen measurement (mass/volume) 8 mg/dL 7-18 Serum or plasma creatinine measurement (mass/volume) 0.74 mg/dL 0.60-1.30 Serum or plasma urea nitrogen/creatinine mass ratio 11 NRG Serum or plasma creatinine measurement with calculation of estimated glomerular filtration rate > NRG Serum or plasma glucose measurement (mass/volume) 200 mg/dL 70-105 Serum or plasma calcium measurement (mass/volume) 8.3 mg/dL 8.5-10.1 Capillary blood glucose measurement by glucometer (mass/volume) - 12/19/18 11:35 Capillary blood glucose measurement by glucometer (mass/volume) 334 mg/dL 70-110 Capillary blood glucose measurement by glucometer (mass/volume) - 12/19/18 16:13 Capillary blood glucose measurement by glucometer (mass/volume) 284 mg/dL 70-110 Capillary blood glucose measurement by glucometer (mass/volume) - 12/19/18 20:23 Capillary blood glucose measurement by glucometer (mass/volume) 216 mg/dL 70-110 Capillary blood glucose measurement by glucometer (mass/volume) - 12/20/18 06:15 Capillary blood glucose measurement by glucometer (mass/volume) 180 mg/dL 70-110 Capillary blood glucose measurement by glucometer (mass/volume) - 12/20/18 11:39 Capillary blood glucose measurement by glucometer (mass/volume) 314 mg/dL 70-110 Capillary blood glucose measurement by glucometer (mass/volume) - 12/20/18 16:02 Capillary blood glucose measurement by glucometer (mass/volume) 218 mg/dL 70-110 Capillary blood glucose measurement by glucometer (mass/volume) - 12/20/18 20:39 Capillary blood glucose measurement by glucometer (mass/volume) 199 mg/dL 70-110 Capillary blood glucose measurement by glucometer (mass/volume) - 12/21/18 06:07 Capillary blood glucose measurement by glucometer (mass/volume) 220 mg/dL 70-110 Capillary blood glucose measurement by glucometer (mass/volume) - 12/21/18 11:31 Capillary blood glucose measurement by glucometer (mass/volume) 309 mg/dL 70-110 Methicillin resistant Staphylococcus aureus (MRSA) screening culture - 12/27/18 06:20 Methicillin resistant Staphylococcus aureus (MRSA) screening culture NEG NRG Automated blood complete blood count (hemogram) panel - 12/27/18 06:45 Blood leukocytes automated count (number/volume) 11.0 10*3/uL 4.3-11.0 Blood erythrocytes automated count (number/volume) 4.28 10*6/uL 4.35-5.85 Venous blood hemoglobin measurement (mass/volume) 11.9 g/dL 13.3-17.7 Blood hematocrit (volume fraction) 37 % 40-54 Automated erythrocyte mean corpuscular volume 86 [foz_us] 80-99 Automated erythrocyte mean corpuscular hemoglobin (mass per erythrocyte) 28 pg 25-34 Automated erythrocyte mean corpuscular hemoglobin concentration measurement (mass/volume) 32 g/dL 32-36 Automated erythrocyte distribution width ratio 12.7 % 10.0- 14.5 Automated blood platelet count (count/volume) 247 10*3/uL 130-400 Automated blood platelet mean volume measurement 10.5 [foz_us] 7.4-10.4 Whole blood basic metabolic panel - 12/27/18 06:45 Serum or plasma sodium measurement (moles/volume) 135 mmol/L 135-145 Serum or plasma potassium measurement (moles/volume) 4.4 mmol/L 3.6-5.0 Serum or plasma chloride measurement (moles/volume) 99 mmol/L 98-107 Carbon dioxide 22 mmol/L 21-32 Serum or plasma anion gap determination (moles/volume) 14 mmol/L 5-14 Serum or plasma urea nitrogen measurement (mass/volume) 16 mg/dL 7-18 Serum or plasma creatinine measurement (mass/volume) 1.18 mg/dL 0.60-1.30 Serum or plasma urea nitrogen/creatinine mass ratio 14 NRG Serum or plasma creatinine measurement with calculation of estimated glomerular filtration rate > NRG Serum or plasma glucose measurement (mass/volume) 460 mg/dL 70-105 Serum or plasma calcium measurement (mass/volume) 9.4 mg/dL 8.5-10.1 Blood type T Indirect antibody screen panel - 12/27/18 06:45 ABO+Rh group ON NR Transfusion band number [id number] [facility] Blood group antibody screen NEGATIVE [facility] Capillary blood glucose measurement by glucometer (mass/volume) - 12/27/18 06:56 Capillary blood glucose measurement by glucometer (mass/volume) 400 mg/dL 70-110 Capillary blood glucose measurement by glucometer (mass/volume) - 12/27/18 07:54 Capillary blood glucose measurement by glucometer (mass/volume) 355 mg/dL 70-110 Capillary blood glucose measurement by glucometer (mass/volume) - 12/27/18 09:09 Capillary blood glucose measurement by glucometer (mass/volume) 330 mg/dL 70-110 Capillary blood glucose measurement by glucometer (mass/volume) - 12/27/18 16:01 Capillary blood glucose measurement by glucometer (mass/volume) 398 mg/dL 70-110 Capillary blood glucose measurement by glucometer (mass/volume) - 12/27/18 19:34 Capillary blood glucose measurement by glucometer (mass/volume) 300 mg/dL 70-110 Capillary blood glucose measurement by glucometer (mass/volume) - 12/28/18 05:28 Capillary blood glucose measurement by glucometer (mass/volume) 335 mg/dL 70-110 Complete blood count (CBC) with automated white blood cell (WBC) differential - 12/28/18 09:25 Blood leukocytes automated count (number/volume) 12.7 10*3/uL 4.3-11.0 Blood erythrocytes automated count (number/volume) 4.35 10*6/uL 4.35-5.85 Venous blood hemoglobin measurement (mass/volume) 12.0 g/dL 13.3-17.7 Blood hematocrit (volume fraction) 38 % 40-54 Automated erythrocyte mean corpuscular volume 86 [foz_us] 80-99 Automated erythrocyte mean corpuscular hemoglobin (mass per erythrocyte) 28 pg 25-34 Automated erythrocyte mean corpuscular hemoglobin concentration measurement (mass/volume) 32 g/dL 32-36 Automated erythrocyte distribution width ratio 12.9 % 10.0- 14.5 Automated blood platelet count (count/volume) 296 10*3/uL 130-400 Automated blood platelet mean volume measurement 9.9 [foz_us] 7.4-10.4 Automated blood neutrophils/100 leukocytes 81 % 42-75 Automated blood lymphocytes/100 leukocytes 12 % 12-44 Blood monocytes/100 leukocytes 6 % 0-12 Automated blood eosinophils/100 leukocytes 1 % 0-10 Automated blood basophils/100 leukocytes 0 % 0-10 Blood neutrophils automated count (number/volume) 10.3 10*3 1.8-7.8 Blood lymphocytes automated count (number/volume) 1.5 10*3 1.0-4.0 Blood monocytes automated count (number/volume) 0.8 10*3 0.0- 1.0 Automated eosinophil count 0.1 10*3/uL 0.0-0.3 Automated blood basophil count (count/volume) 0.0 10*3/uL 0.0-0.1 Comprehensive metabolic panel - 12/28/18 09:25 Serum or plasma sodium measurement (moles/volume) 131 mmol/L 135-145 Serum or plasma potassium measurement (moles/volume) 4.3 mmol/L 3.6-5.0 Serum or plasma chloride measurement (moles/volume) 98 mmol/L 98-107 Carbon dioxide 21 mmol/L 21-32 Serum or plasma anion gap determination (moles/volume) 12 mmol/L 5-14 Serum or plasma urea nitrogen measurement (mass/volume) 10 mg/dL 7-18 Serum or plasma creatinine measurement (mass/volume) 0.79 mg/dL 0.60-1.30 Serum or plasma urea nitrogen/creatinine mass ratio 13 NRG Serum or plasma creatinine measurement with calculation of estimated glomerular filtration rate > NRG Serum or plasma glucose measurement (mass/volume) 269 mg/dL 70-105 Serum or plasma calcium measurement (mass/volume) 9.5 mg/dL 8.5-10.1 Serum or plasma total bilirubin measurement (mass/volume) 0.5 mg/dL 0.1-1.0 Serum or plasma alkaline phosphatase measurement (enzymatic activity/volume) 229 U/L 40-136 Serum or plasma aspartate aminotransferase measurement (enzymatic activity/volume) 15 U/L 5-34 Serum or plasma alanine aminotransferase measurement (enzymatic activity/volume) 33 U/L 0-55 Serum or plasma protein measurement (mass/volume) 7.4 g/dL 6.4-8.2 Serum or plasma albumin measurement (mass/volume) 3.6 g/dL 3.2-4.5 CALCIUM CORRECTED 9.8 mg/dL 8.5-10.1 Capillary blood glucose measurement by glucometer (mass/volume) - 12/28/18 11:12 Capillary blood glucose measurement by glucometer (mass/volume) 439 mg/dL 70-110 Encounters ACCT No. Visit Date/Time Discharge Status Pt. Type Provider Facility Loc./Unit Complaint [id number] 11/30/2018 11:00:00 11/30/2018 23:59:59 CLS Outpatient [facility] [id number] 11/30/2018 11:00:00 Document Registration [id number] 12/27/2018 05:56:00 12/28/2018 13:30:00 DIS Outpatient LINDA SANCHEZ MD [facility] SDC URINE RETENTION [id number] 12/26/2018 05:59:00 12/26/2018 23:59:59 CLS Outpatient LINDA SANCHEZ MD [facility] PREOP URINE RETENTION [id number] 12/17/2018 17:12:00 12/21/2018 15:33:00 DIS Inpatient LISSA GUILLEN MD [facility] ICU SEPSIS,UTI,DKA
[2019-03-08 10:40] LABS: BASOPHILS % (AUTO) 0 % (0-10); EOSINOPHILS % (AUTO) 0 % (0-10); HEMATOCRIT 40 % (40-54); HEMOGLOBIN 12.8 G/DL (13.3-17.7); LYMPHOCYTES # (AUTO) 1.1 X 10^3 (1.0-4.0); LYMPHOCYTES % (AUTO) 9 % (12-44); MEAN CORPUSCULAR HEMOGLOBIN 26 PG (25-34); MEAN CORPUSCULAR HGB CONC 32 G/DL (32-36); MEAN CORPUSCULAR VOLUME 82 FL (80-99); MONOCYTES # (AUTO) 1.1 X 10^3 (0.0-1.0); MONOCYTES % (AUTO) 9 % (0-12); NEUTROPHILS # (AUTO) 10.2 X 10^3 (1.8-7.8); NEUTROPHILS % (AUTO) 82 % (42-75); PLATELET COUNT 251 10^3/uL (130-400); RED CELL DISTRIBUTION WIDTH 13.3 % (10.0-14.5); WHITE BLOOD COUNT 12.4 10^3/uL (4.3-11.0)
[2019-03-08 10:40] LABS: BILIRUBIN,URINE NEGATIVE (NEGATIVE); CLARITY,URINE VERY CLOUDY; COLOR,URINE YELLOW; GLUCOSE, URINE (UA) 4+ (NEGATIVE); KETONES,URINE 3+ (NEGATIVE); LEUKOCYTE ESTERASE ,URINE 2+ (NEGATIVE); NITRITE,URINE NEGATIVE (NEGATIVE); PH,URINE 6 (5-9); PROTEIN,URINE 1+ (NEGATIVE); UROBILINOGEN,URINE NORMAL (NORMAL)
[2019-03-08 10:54] LABS: BACTERIA,URINE LARGE /HPF; SQUAMOUS EPITHELIAL CELL,UR RARE /HPF
[2019-03-08 10:57] LABS: WBC,URINE >100 /HPF
[2019-03-08 11:03] LABS: ALBUMIN 3.9 GM/DL (3.2-4.5); BILIRUBIN,TOTAL 0.7 MG/DL (0.1-1.0); CALCIUM 10.3 MG/DL (8.5-10.1); CREATININE SERUM 1.46 MG/DL (0.60-1.30); MAGNESIUM 1.8 MG/DL (1.8-2.4); POTASSIUM 5.3 MMOL/L (3.6-5.0)
[2019-03-08] MEDS ORDERED: cefTRIAXone FOR IV USE 1,000 MG in WATER (STERILE) FOR INJECTION 10 ML IV ONE (11:45)
--- NOTE | 2019-03-08 12:10 | ED General ---
General Chief Complaint: Glucose Problems Stated Complaint: WEAKNESS;INCREASED URINATION Nursing Triage Note: Pt to ED with c/o balance troubles, frequent urination, urinary incontinence. Pt had visibly had urinary incontinence prior to getting to room. Pt reports issue has persisted for several months. Pt denies seeing PCP about this issue. reports pt is non-compliant. reports pt won't take insulin, has been eating excessive sugar and does not check blood sugars. When pt was hooked up to O2 sat was 86% on room air. Pt denies wearning O2. Pt placed on 4 L NC and O2 berenice to 93%. Nursing Sepsis Screen: No Definite Risk Source of Information: Patient Exam Limitations: No Limitations History of Present Illness Date Seen by Provider: Mar 08, 2019 Time Seen by Provider: 10:19 Initial Comments This 68-year-old gentleman is brought to the emergency room by his with concerns about elevated blood sugars. He has not been using insulin as directed. He is been using metformin alone. He is also developed urinary incontinence and generalized weakness over the past week. He has been eating a large amount of desserts including an entire plate of desserts at a buffet recently. He is also had some shortness of breath and chills. Dr. Benítez is his primary care provider. Allergies and Home Medications Allergies Coded Allergies: No Known Drug Allergies (Unverified , 12/17/18) Home Medications Atorvastatin Calcium 40 Mg Tablet, 40 MG PO HS, (Reported) Carvedilol 25 Mg Tablet, 50 MG PO DAILY, (Reported) TAKES 2 (25MG) TABLETS Cholecalciferol (Vitamin D3) 400 Unit Capsule, 400 UNIT PO DAILY, (Reported) Gabapentin 300 Mg Capsule, 300 MG PO BID, (Reported) Gabapentin 300 Mg Capsule, 300 MG PO 1200 PRN for NEUROPTAHY PAIN, (Reported) Lamotrigine 100 Mg Tablet, 100 MG PO BID, (Reported) Melatonin 5 Mg Tablet, 5 MG PO HS, (Reported) Metformin HCl 1,000 Mg Tablet, 1,000 MG PO BID, (Reported) Quetiapine Fumarate 400 Mg Tablet, 1,200 MG PO HS, (Reported) TAKES 3 (400MG) TABLETS Venlafaxine HCl 150 Mg Cap.er.24h, 150 MG PO BID, (Reported) Patient Home Medication List Home Medication List Reviewed: Yes Review of Systems Review of Systems Constitutional: see HPI EENTM: no symptoms reported Respiratory: see HPI Cardiovascular: see HPI (patient later described chest pain) Gastrointestinal: no symptoms reported Genitourinary: see HPI Musculoskeletal: no symptoms reported Skin: no symptoms reported Psychiatric/Neurological: See HPI Hematologic/Lymphatic: No Symptoms Reported Past [id number] Hx Patient Social History Alcohol Use: Denies Use Recreational Drug Use: No Former Smoker, Quit: December 28, 1983 2nd Hand Smoke Exposure: No Recent Foreign Travel: No Contact w/Someone Who Travel: No Recent Infectious Disease Expo: No Recent Hopitalizations: No Physical Abuse: No Sexual Abuse: No Immunizations Up To Date Date of Pneumonia Vaccine: Jun 18, 2014 Seasonal Allergies Seasonal Allergies: No Past Medical History Surgeries: Yes Appendectomy, Orthopedic Respiratory: No Cardiac: Yes High Cholesterol, Hypertension Neurological: No Genitourinary: Yes Benign Prostatic Hyperpl Gastrointestinal: No Musculoskeletal: No Endocrine: Yes Diabetes, Non-Insulin dep HEENT: No Cancer: Yes Skin Psychosocial: Yes Depression Integumentary: No Blood Disorders: No Family Medical History No Pertinent Family Hx Physical Exam Vital Signs Vital Signs - First Documented 03/08/19 03/08/19 10:10 10:56 Temp 98.7 Pulse 82 Resp 20 B/P (MAP) 110/83 (92) Pulse Ox 94 O2 Delivery Room Air O2 Flow Rate 4.00 Capillary Refill : Less Than 3 Seconds Height, Weight, BMI Height: 6'1.00" Weight: 240lbs. 3.0oz. 108.233110mw; 34.9 BMI Method:Stated General Appearance: No Apparent Distress, WD/WN, Other (generally weak and ill- appearing) HEENT: PERRL/EOMI, Normal ENT Inspection, Other (oropharynx dry) Neck: Normal Inspection Respiratory: Lungs Clear, Normal Breath Sounds, No Accessory Muscle Use, No Respiratory Distress Cardiovascular: Regular Rate, Rhythm, No Edema, No Murmur Gastrointestinal: Normal Bowel Sounds, Non Tender, Soft Extremity: Normal Inspection, No Pedal Edema Neurologic/Psychiatric: Alert, Oriented x3, No Motor/Sensory Deficits, director social II- XII Norm as Tested, Other (depressed mood) Skin: Normal Color, Warm/Dry Focused Exam Lactate Level 03/08/19 12:05: Lactic Acid Level 1.35 Progress/Results/Core Measures Suspected Sepsis Recent Fever Within 48 Hours: No Infection Criteria Present: None New/Unexplained Altered Menta: No Sepsis Screen: No Definite Risk SIRS Temperature:98.7 Pulse: 82 Respiratory Rate: 20 Laboratory Tests 03/08/19 10:26: White Blood Count 12.4H Blood Pressure 110 /83 Mean: 92 03/08/19 12:05: Lactic Acid Level 1.35 Laboratory Tests 03/08/19 10:26: Creatinine 1.46H, Platelet Count 251, Total Bilirubin 0.7 Results/Orders Lab Results Laboratory Tests Test 03/08/19 10:10 03/08/19 10:17 03/08/19 10:26 03/08/19 11:35 Range/Units Urine Color YELLOW Urine Clarity VERY CLOUDY H Urine pH 6 5-9 Urine Specific Cruger 1.015 L 1.016-1.022 Urine Protein 1+ H NEGATIVE Urine Glucose (UA) 4+ H NEGATIVE Urine Ketones 3+ H NEGATIVE Urine Nitrite NEGATIVE NEGATIVE Urine Bilirubin NEGATIVE NEGATIVE Urine Urobilinogen NORMAL NORMAL MG/DL Urine Leukocyte Esterase 2+ H NEGATIVE Urine RBC (Auto) 3+ H NEGATIVE Urine RBC 5-10 H /HPF Urine WBC >100 H /HPF Urine Squamous Epithelial Cells RARE /HPF Urine Crystals NONE /LPF Urine Bacteria LARGE H /HPF Urine Casts NONE /LPF Urine Mucus NEGATIVE /LPF Urine Culture Indicated YES Glucometer > 600 *H 517 *H 70-110 MG/DL White Blood Count 12.4 H 4.3-11.0 10^3/uL Red Blood Count 4.84 4.35-5.85 10^6/uL Hemoglobin 12.8 L 13.3-17.7 G/DL Hematocrit 40 40-54 % Mean Corpuscular Volume 82 80-99 FL Mean Corpuscular Hemoglobin 26 25-34 PG Mean Corpuscular Hemoglobin Concent 32 32-36 G/DL Red Cell Distribution Width 13.3 10.0-14.5 % Platelet Count 251 130-400 10^3/uL Mean Platelet Volume 11.0 H 7.4-10.4 FL Neutrophils (%) (Auto) 82 H 42-75 % Lymphocytes (%) (Auto) 9 L 12-44 % Monocytes (%) (Auto) 9 0-12 % Eosinophils (%) (Auto) 0 0-10 % Basophils (%) (Auto) 0 0-10 % Neutrophils # (Auto) 10.2 H 1.8-7.8 X 10^3 Lymphocytes # (Auto) 1.1 1.0-4.0 X 10^3 Monocytes # (Auto) 1.1 H 0.0-1.0 X 10^3 Eosinophils # (Auto) 0.0 0.0-0.3 10^3/uL Basophils # (Auto) 0.0 0.0-0.1 10^3/uL Sodium Level 126 L 135-145 MMOL/L Potassium Level 5.3 H 3.6-5.0 MMOL/L Chloride Level 88 L 98-107 MMOL/L Carbon Dioxide Level 20 L 21-32 MMOL/L Anion Gap 18 H 5-14 MMOL/L Blood Urea Nitrogen 22 H 7-18 MG/DL Creatinine 1.46 H 0.60-1.30 MG/DL Estimat Glomerular Filtration Rate 48 BUN/Creatinine Ratio 15 Glucose Level 677 *H 70-105 MG/DL Calcium Level 10.3 H 8.5-10.1 MG/DL Corrected Calcium 10.4 H 8.5-10.1 MG/DL Magnesium Level 1.8 1.8-2.4 MG/DL Total Bilirubin 0.7 0.1-1.0 MG/DL Aspartate Amino Transf (AST/SGOT) 13 5-34 U/L Alanine Aminotransferase (ALT/SGPT) 18 0-55 U/L Alkaline Phosphatase 165 H 40-136 U/L Troponin I < 0.028 <0.028 NG/ML Total Protein 8.0 6.4-8.2 GM/DL Albumin 3.9 3.2-4.5 GM/DL Test 03/08/19 12:05 03/08/19 16:07 Range/Units Lactic Acid Level 1.35 0.50-2.00 MMOL/L Glucometer 474 *H 70-110 MG/DL My Orders Orders - DARA DAVE MD Cbc With Automated Diff (03/08/19 10:19) Comprehensive Metabolic Panel (03/08/19 10:19) Ua Culture If Indicated (03/08/19 10:19) Ed Iv/Invasive Line Start (03/08/19 10:19) Magnesium (03/08/19 10:30) Ed Iv/Invasive Line Start (03/08/19 10:30) Ns Iv 1000 Ml (Sodium Chloride 0.9%) (03/08/19 10:30) Insulin (Regular) Human (Humulin R (Per (03/08/19 10:30) Accucheck Stat ONCE (03/08/19 10:31) Accucheck Stat ONCE (03/08/19 10:31) Accucheck Stat ONCE (03/08/19 10:31) Urine Culture (03/08/19 10:10) Ns Iv 1000 Ml (Sodium Chloride 0.9%) (03/08/19 11:07) Chest 1 View, Ap/Pa Only (03/08/19 11:37) Blood Culture (03/08/19 11:37) Lactic Acid Analyzer (03/08/19 11:37) Ceftriaxone For Iv Use (Rocephin For I (03/08/19 11:45) Insulin (Regular) Human (Humulin R (Per (03/08/19 12:00) Ekg Tracing (03/08/19 11:48) Troponin I (03/08/19 11:48) Medications Given in ED Current Medications Medications Dose Ordered Sig/Scar Route Start Time Stop Time Status Last Admin Dose Admin Ceftriaxone Sodium 1000 mg/ Sterile Water 10 ml @ 200 mls/hr ONCE ONCE IV 03/08/19 11:45 03/08/19 11:47 DC 03/08/19 12:35 200 MLS/HR Insulin Human Regular 5 unit ONCE ONCE IV 03/08/19 10:30 03/08/19 10:32 DC 03/08/19 10:39 5 UNIT Insulin Human Regular 5 unit ONCE ONCE IV 03/08/19 12:00 03/08/19 12:01 DC 03/08/19 12:05 5 UNIT Sodium Chloride 1,000 ml @ 0 mls/hr Q0M ONCE IV 03/08/19 10:30 03/08/19 10:32 DC 03/08/19 10:39 1,000 MLS/HR Sodium Chloride 1,000 ml @ 0 mls/hr Q0M ONCE IV 03/08/19 11:07 03/08/19 11:08 DC 03/08/19 11:32 1,000 MLS/HR Vital Signs/I&O 03/08/19 03/08/19 03/08/19 03/08/19 10:10 10:56 13:05 13:22 Temp 98.7 98.7 98.7 Pulse 82 75 75 Resp 20 18 18 B/P (MAP) 110/83 (92) 109/71 (84) 109/71 Pulse Ox 94 86 94 94 O2 Delivery Room Air Room Air Nasal Cannula Nasal Cannula O2 Flow Rate 4.00 3.50 3.50 3.50 03/08/19 03/08/19 03/08/19 13:47 15:01 16:00 Temp 98.0 Pulse 75 74 Resp 20 B/P (MAP) 111/71 (84) Pulse Ox 94 95 O2 Delivery Nasal Cannula Nasal Cannula O2 Flow Rate 1.00 1.00 Capillary Refill : Less Than 3 Seconds Blood Pressure Mean: 92 Point of Care Testing Blood Glucose Action Taken: too high to read, Elliot notified Progress Note : Time: 12:04 Progress Note Patient was found to have a very high blood sugar by fingerstick. He was started on IV fluids and was given 5 units of insulin by IV route. After 1500 mL normal saline and the insulin dose, his blood sugar decreased from 677-517. He was found to have a significant urinary tract infection. Blood cultures and lactic acid are being drawn and Rocephin will be administered. Patient seems depressed and requests a DO NOT RESUSCITATE. He does struggle with chronic major depression and is seen by a practitioner named Olimpia in the [place]. Dr. Benítez is his primary care provider. Case has been discussed with Dr. Lamar who accepts the admission. Bridging orders were reviewed with her. Patient reports he had prostate surgery and has some dysuria recently. He normally does not have trouble starting his stream. Patient also informed me late into his ER stay that he was experiencing chest pain. A troponin has been added to his workup. EKG was unremarkable. Chest x-ray report is pending at this time. So far patient has received a second dose of insulin 5 units by IV route totaling 10 units of insulin. ECG Initial ECG Impression Date: Mar 08, 2019 Initial ECG Impression Time: 11:58 Initial ECG Rate: 74 Initial ECG Rhythm: Normal Sinus Initial ECG Impression: Normal Comment Normal sinus rhythm with no ST elevation or depression. No axis deviation. Automated report notes nonspecific intraventricular conduction delay. Diagnostic Imaging Diagonstic Imaging: Xray Plain Films/CT/US/NM/MRI: chest Comments Chest x-ray viewed by me and report reviewed. See report below: NAME: KARMEGA GONG [facility] REC#: [id number] PT STATUS: ADM IN : 1950 PHYSICIAN: DARA DAVE MD ADMIT DATE: 03/08/19 Draft Date of Exam:03/08/19 CHEST 1 VIEW, AP/PA ONLY Portable erect AP chest 1152. Indication: Urinary incontinence. The heart size is within normal limits and stable when compared to 12/17/2018. The lungs are clear. There is no evidence for failure, pneumonia or for pleural effusion. Mediastinum is not widened. The osseous structures are intact. Impression: Stable chest. There has been no adverse change since the prior exam. Dictated on workstation # [id number] Dict: 03/08/19 1206 Trans: 03/08/19 1305 [facility] [id number] Interpreted by: ACOSTA HALE MD Departure Communication (Admissions) Time/Spoke to Admitting Phy: 11:46 Dr. Lamar Impression Primary Impression: Acute renal failure Qualified Codes: N17.9 - Acute kidney failure, unspecified Additional Impressions: Hyperglycemia Urinary tract infection Qualified Codes: N39.0 - Urinary tract infection, site not specified Diabetes type 2, uncontrolled Qualified Codes: E11.65 - Type 2 diabetes mellitus with hyperglycemia Generalized weakness Depression Qualified Codes: F32.9 - Major depressive disorder, single episode, unspecified Chest pain Qualified Codes: R07.9 - Chest pain, unspecified Disposition: ADMITTED INPATIENT Condition: Improved Admissions Decision to Admit Reason: Admit from ER (General) Decision to Admit/Date: Mar 08, 2019 Time/Decision to Admit Time: 11:35 Departure-Patient Inst. Referrals: TALA BENÍTEZ MD (PCP/Family) Primary Care Physician DARA DAVE MD Mar 08, 2019 12:10
--- NOTE | 2019-03-08 13:06 | Diagnostic Imaging Report ---
Portable erect AP chest 1152. Indication: Urinary incontinence. The heart size is within normal limits and stable when compared to 12/17/2018. The lungs are clear. There is no evidence for failure, pneumonia or for pleural effusion. Mediastinum is not widened. The osseous structures are intact. Impression: Stable chest. There has been no adverse change since the prior exam. Dictated by: Dictated on workstation # [id number]
[2019-03-08] MEDS ORDERED: VENL150C PO (13:18)
[2019-03-08 13:22] VITALS: BP 109/71
[2019-03-08] MEDS ORDERED: QUET400T12 PO (13:31)
[2019-03-08] MEDS ORDERED: MELA5TAB14 PO (13:31)
--- OUTSIDE RECORDS SUMMARY | 2019-03-08 13:44 | XMS REPORT | Continuity of Care Document ---
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 01/04/2019 LINDA SANCHEZ MD, Ot Z79.899 OTHER CONTROLS DESIGN ENGINEER (CURRENT) DRUG THERAPY 01/04/2019 LINDA SANCHEZ MD, [...] ENTEROBACTER AEROGENES NR QUANTITY OF GROWTH Isolated [facility] Bacterial blood culture [id number] [facility] FREE TEXT ENTRY 2 REFER TO CULTURE [id number] FOR SENSITIVITY NR Bacterial blood culture - 12/17/18 15:49 FREE TEXT EXTERNAL RML REPORTED ID 12/19 12:05 NRG QUANTITY OF GROWTH Isolated NR Bacterial blood culture [id number] [facility] FREE TEXT ENTRY 2 RML [...] culture - 12/17/18 16:00 Bacterial urine culture [id number] NRG COLONY COUNT >100,000/ML NR FTX;REPORTABLE SUSCEPTIBILITY REPORTED 5--19, 1405. [facility] RML Sensitivity Panel - 12/17/18 [...] concentration > NR Amoxicillin and clavulanate potassium [facility] DORIAN > NRG Arterial blood gas measurement [...] ABO+Rh group ON NR Transfusion band number [id number] [facility] Blood group antibody screen NEGATIVE [facility] Capillary blood glucose measurement by [...] measurement by glucometer (mass/volume) 439 mg/dL 70-110 Complete urinalysis with reflex to culture - 03/08/19 10:10 Urine color determination YELLOW NRG Urine clarity determination VERY CLOUDY NRG Urine pH measurement by test strip 6 5-9 Specific gravity of urine by test strip 1.015 1.016-1.022 Urine protein assay by test strip, semi-quantitative 1+ NEGATIVE Urine glucose detection by automated test strip 4+ NEGATIVE Erythrocytes detection in urine sediment by light microscopy 3+ NEGATIVE Urine ketones detection by automated test strip 3+ NEGATIVE Urine nitrite detection by test strip NEGATIVE NEGATIVE Urine total bilirubin detection by test strip NEGATIVE NEGATIVE Urine urobilinogen measurement by automated test strip (mass/volume) NORMAL NORMAL Urine leukocyte esterase detection by dipstick 2+ NEGATIVE Automated urine sediment erythrocyte count by microscopy (number/high power field) [HPF] NRG Automated urine sediment leukocyte count by microscopy (number/high power field) > [HPF] NRG Bacteria detection in urine sediment by light microscopy LARGE NRG Squamous epithelial cells detection in urine sediment by light microscopy RARE NRG Crystals detection in urine sediment by light microscopy NONE NRG Casts detection in urine sediment by light microscopy NONE NRG Mucus detection in urine sediment by light microscopy NEGATIVE NRG Complete urinalysis with reflex to culture YES NRG Capillary blood glucose measurement by glucometer (mass/volume) - 03/08/19 10:17 Capillary blood glucose measurement by glucometer (mass/volume) > mg/dL 70-110 Complete blood count (CBC) with automated white blood cell (WBC) differential - 03/08/19 10:26 Blood leukocytes automated count (number/volume) 12.4 10*3/uL 4.3-11.0 Blood erythrocytes automated count (number/volume) 4.84 10*6/uL 4.35-5.85 Venous blood hemoglobin measurement (mass/volume) 12.8 g/dL 13.3-17.7 Blood hematocrit (volume fraction) 40 % 40-54 Automated erythrocyte mean corpuscular volume 82 [foz_us] 80-99 Automated erythrocyte mean corpuscular hemoglobin (mass per erythrocyte) 26 pg 25-34 Automated erythrocyte mean corpuscular hemoglobin concentration measurement (mass/volume) 32 g/dL 32-36 Automated erythrocyte distribution width ratio 13.3 % 10.0- 14.5 Automated blood platelet count (count/volume) 251 10*3/uL 130-400 Automated blood platelet mean volume measurement 11.0 [foz_us] 7.4-10.4 Automated blood neutrophils/100 leukocytes 82 % 42-75 Automated blood lymphocytes/100 leukocytes 9 % 12-44 Blood monocytes/100 leukocytes 9 % 0-12 Automated blood eosinophils/100 leukocytes 0 % 0-10 Automated blood basophils/100 leukocytes 0 % 0-10 Blood neutrophils automated count (number/volume) 10.2 10*3 1.8-7.8 Blood lymphocytes automated count (number/volume) 1.1 10*3 1.0-4.0 Blood monocytes automated count (number/volume) 1.1 10*3 0.0- 1.0 Automated eosinophil count 0.0 10*3/uL 0.0-0.3 Automated blood basophil count (count/volume) 0.0 10*3/uL 0.0-0.1 Comprehensive metabolic panel - 03/08/19 10:26 Serum or plasma sodium measurement (moles/volume) 126 mmol/L 135-145 Serum or plasma potassium measurement (moles/volume) 5.3 mmol/L 3.6-5.0 Serum or plasma chloride measurement (moles/volume) 88 mmol/L 98-107 Carbon dioxide 20 mmol/L 21-32 Serum or plasma anion gap determination (moles/volume) 18 mmol/L 5-14 Serum or plasma urea nitrogen measurement (mass/volume) 22 mg/dL 7-18 Serum or plasma creatinine measurement (mass/volume) 1.46 mg/dL 0.60-1.30 Serum or plasma urea nitrogen/creatinine mass ratio 15 NRG Serum or plasma creatinine measurement with calculation of estimated glomerular filtration rate 48 NRG Serum or plasma glucose measurement (mass/volume) 677 mg/dL 70-105 Serum or plasma calcium measurement (mass/volume) 10.3 mg/dL 8.5-10.1 Serum or plasma total bilirubin measurement (mass/volume) 0.7 mg/dL 0.1-1.0 Serum or plasma alkaline phosphatase measurement (enzymatic activity/volume) 165 U/L 40-136 Serum or plasma aspartate aminotransferase measurement (enzymatic activity/volume) 13 U/L 5-34 Serum or plasma alanine aminotransferase measurement (enzymatic activity/volume) 18 U/L 0-55 Serum or plasma protein measurement (mass/volume) 8.0 g/dL 6.4-8.2 Serum or plasma albumin measurement (mass/volume) 3.9 g/dL 3.2-4.5 CALCIUM CORRECTED 10.4 mg/dL 8.5-10.1 Magnesium - 03/08/19 10:26 Magnesium 1.8 mg/dL 1.8-2.4 Serum or plasma troponin i.cardiac measurement (mass/volume) - 03/08/19 10:26 Serum or plasma troponin i.cardiac measurement (mass/volume) < ng/mL <0.028 Capillary blood glucose measurement by glucometer (mass/volume) - 03/08/19 11:35 Capillary blood glucose measurement by glucometer (mass/volume) 517 mg/dL 70-110 Blood lactic acid measurement (moles/volume) - 03/08/19 12:05 Blood lactic acid measurement (moles/volume) 1.35 mmol/L 0.50- 2.00 Encounters ACCT No. Visit Date/Time Discharge Status Pt. Type Provider Facility Loc./Unit Complaint [id number] 11/30/2018 11:00:00 11/30/2018 23:59:59 CLS Outpatient [facility] [id number] 11/30/2018 11:00:00 Document Registration [id number] 12/27/2018 05:56:00 12/28/2018 13:30:00 DIS Outpatient LINDA SANCHEZ MD [facility] SDC URINE RETENTION [id number] 12/26/2018 05:59:00 12/26/2018 23:59:59 CLS Outpatient LINDA SANCHEZ MD [facility] PREOP URINE RETENTION [id number] 12/17/2018 17:12:00 12/21/2018 15:33:00 DIS Inpatient LISSA GUILLEN MD [facility] ICU SEPSIS,UTI,DKA [id number] 03/08/2019 10:33:00 Document Registration
[2019-03-08] MEDS ORDERED: CATHETER FLUSH 10 ML SYR IV PRN (13:45)
[2019-03-08] MEDS ORDERED: ONDANSETRON 4 MG/2 ML (SDV) Z0FRAN IV PRN (13:45)
[2019-03-08] MEDS: NS IV 1000 ML 1,000 ML IV SCH ×2 (14:03→19:55)
--- NOTE | 2019-03-08 14:30 | NUR ---
MEGA NESBITT admitted to room 424-1, with an admitting diagnosis of uti, DM - non compliant , on 03/08/19 from ED via wheel chair , accompanied by and staff .MEGA NESBITT introduced to surroundings, call light, bed controls, phone, TV, temperature control, lights, meal times, smoking policy, visitor policy, side rail policy, bathrooms and showers. Patient Rights given to patient in the handbook. MEGA NESBITT verbalizes understanding that [facility] is not responsible for the loss or damage to any personal effects or valuables that are kept in the patients posession during their hospitalization. The following Patient Care Plans and discharge were discussed with the patient and present. MEGA NESBITT verbalizes understanding of Interdisciplinary Patient Education. Patient and family were informed about the Rapid Response Team and its purpose.
--- NOTE | 2019-03-08 14:54 | NUR ---
SPOKE WITH THE PATIENT AND HIS REGARDING MEDICATIONS. THEY HAD A LIST WITH THEM AND I HAD A LIST FAXED OVER FROM [facility] IN [place]. [facility]-08-19 LAMOTRIGINE 100MG BID #60 03-07-19 ATORVASTATIN 40MG DAILY #30 03-01-19 QUETIAPINE 400MG 1 EVENING AND 2 HS #90 (TAKES ALL 3 AT HS) 02-28-19 VENLAFAXINE ER 150MG BID #60 02-21-19 METFORMIN 1000MG BID #180 02-07-19 GABAPENTIN 300MG TID #90 (TAKES 1 BID AND ONLY TAKES NOON DOSE NEEDED) 01-20-19 CARVEDILOL 25MG 2 BID (ONLY TAKES 2 DAILY) OTC MEDS: VITAMIN D 400IU DAILY MELATONIN 5MG HS
[2019-03-08 16:00] VITALS: BP 111/71
[2019-03-08] MEDS: inSUlin ASPART (NovoLOG) 1 UNIT/0.01 ML (CHARGE PER UNIT) SC SCH ×2 (16:22→21:05)
[2019-03-08 20:00] VITALS: BP 134/82
[2019-03-09] VITALS (7 sets, daily range): BP systolic 100–150; BP diastolic 63–89
--- NOTE | 2019-03-09 00:24 | NUR ---
PT C/O HEADACHE. DR. REID CALLED AND INFORMED OF MARRERO AND REQUEST FOR PAIN MEDICATION. ORDER FOR TYLENOL 1,000MG TID PRN PAIN.
[2019-03-09] MEDS ORDERED: ACETAMINOPHEN 500 MG TAB (TYLENOL) ONE (00:27)
[2019-03-09] MEDS: ACETAMINOPHEN 500 MG TAB (TYLENOL) PO PRN ×3 (00:35→22:45)
[2019-03-09] MEDS: NS IV 1000 ML 1,000 ML IV SCH ×4 (02:20→21:42)
[2019-03-09 05:13] LABS: BASOPHILS % (AUTO) 0 % (0-10); EOSINOPHILS % (AUTO) 0 % (0-10); HEMATOCRIT 34 % (40-54); LYMPHOCYTES # (AUTO) 1.2 X 10^3 (1.0-4.0); LYMPHOCYTES % (AUTO) 11 % (12-44); MEAN CORPUSCULAR HEMOGLOBIN 27 PG (25-34); MEAN CORPUSCULAR HGB CONC 32 G/DL (32-36); MEAN CORPUSCULAR VOLUME 84 FL (80-99); MEAN PLATELET VOLUME 10.8 FL (7.4-10.4); MONOCYTES # (AUTO) 0.9 X 10^3 (0.0-1.0); MONOCYTES % (AUTO) 8 % (0-12); NEUTROPHILS # (AUTO) 8.6 X 10^3 (1.8-7.8); NEUTROPHILS % (AUTO) 80 % (42-75); PLATELET COUNT 190 10^3/uL (130-400); RED CELL DISTRIBUTION WIDTH 13.2 % (10.0-14.5); WHITE BLOOD COUNT 10.7 10^3/uL (4.3-11.0)
[2019-03-09 05:39] LABS: BUN/CREATININE RATIO 17; CALCIUM 8.6 MG/DL (8.5-10.1); CARBON DIOXIDE 19 MMOL/L (21-32); CHLORIDE 98 MMOL/L (98-107); GFR ESTIMATED > 60; GLUCOSE 322 MG/DL (70-105); MAGNESIUM 1.7 MG/DL (1.8-2.4); POTASSIUM 4.6 MMOL/L (3.6-5.0); SODIUM 131 MMOL/L (135-145)
[2019-03-09] MEDS: inSUlin ASPART (NovoLOG) 1 UNIT/0.01 ML (CHARGE PER UNIT) SC SCH ×4 (06:24→21:42)
[2019-03-09] MEDS ORDERED: MAGNESIUM 1 GM/100 ML IVPB 100 ML IV ONE (08:30)
[2019-03-09] MEDS ORDERED: GABAPENTIN 300 MG (NEURONTIN) CAP PO PRN (08:30)
[2019-03-09] MEDS: metFORMIN 500 MG (GLUCOPHAGE) TAB PO SCH ×2 (08:37→16:14)
[2019-03-09] MEDS: GABAPENTIN 300 MG (NEURONTIN) CAP PO SCH ×2 (08:38→21:34)
[2019-03-09] MEDS: CARVEDILOL 12.5 MG (COREG) TABLET PO SCH ×2 (08:38→21:34)
[2019-03-09] MEDS ORDERED: NON-FORMULARY MEDICATION 1 EA EA (Metformin HCl 1,000 MG) PO SCH (09:00)
[2019-03-09] MEDS ORDERED: LAMOTRIGINE 100 MG PO SCH (09:00)
[2019-03-09] MEDS ORDERED: NON-FORMULARY MEDICATION 1 EA EA (Venlafaxine HCl (Effexor Xr) 150 MG) PO SCH (09:00)
--- NOTE | 2019-03-09 10:47 | History & Physical ---
HPI History of Present Illness: Pt came to ER for several reasons, had urinary incontinence worsening over last couple of months, weakness, skin not healing well and has had some chest pain. When diagnosed with DMII he had A1c 14 and was started on metformin and insulin TID, did that and exercised and A1c went down to 6.8 and he stopped doing things . He notes that he has not eaten right or kept up with exercising. Date seen by provider: Mar 09, 2019 Time Seen by Provider: 10:47 Attending Physician dIalia Lamar MD PCP SelfNeil MD Consult Date of Admission Mar 08, 2019 at 12:30 Home Medications Home Medications Reviewed patient Home Medication Reconciliation performed by pharmacy medication reconciliations electronic bench technician and/or nursing. Patients Allergies have been reviewed. Allergies Coded Allergies: No Known Drug Allergies (Unverified , 12/17/18) BRO-Ahhtio-Tkekao Hx Patient Social History Alcohol Use: Past History (last drink 12 years ago) Recreational Drug Use: No Smoking Status: Former Smoker (quit 35 years ago) 2nd Hand Smoke Exposure: No Recent Foreign Travel: No Contact w/other who traveled: No Recent Hopitalizations: No Recent Infectious Disease Expo: No Physical Abuse Screen: No Sexual Abuse: No Immunizations Up To Date Date of Pneumonia Vaccine: Jun 18, 2014 Past Medical History PMHx: DMII Depression Anxiety HTN HLD SurgHx: BPH treatment Hernia x 3 Appendectomy Back surgery Family Medical History Family History: Alzheimer's disease Arthritis Asthma Cardiovascular disease Completed stroke Coronary thrombosis Hypertension Myocardial infarction Thyroid disease Review of Systems (CHC) Constitutional: chills, fever EENTM: No nose congestion, No throat pain Respiratory: cough, short of breath Cardiovascular: chest pain Gastrointestinal: abdominal pain; No constipation, No diarrhea; melena, nausea, vomiting Genitourinary: see HPI Musculoskeletal: No joint pain (gets pain in left hip if he stands very long) Skin: No rash Psychiatric/Neurological: Depressed Reviewed Test Results Reviewed Test Results Lab Laboratory Tests Test 03/08/19 10:10 03/08/19 10:17 03/08/19 10:26 03/08/19 11:35 Range/Units Urine Color YELLOW Urine Clarity VERY CLOUDY H Urine pH 6 5-9 Urine Specific [place] 1.015 L 1.016-1.022 Urine Protein 1+ H NEGATIVE Urine Glucose (UA) 4+ H NEGATIVE Urine Ketones 3+ H NEGATIVE Urine Nitrite NEGATIVE NEGATIVE Urine Bilirubin NEGATIVE NEGATIVE Urine Urobilinogen NORMAL NORMAL MG/DL Urine Leukocyte Esterase 2+ H NEGATIVE Urine RBC (Auto) 3+ H NEGATIVE Urine RBC 5-10 H /HPF Urine WBC >100 H /HPF Urine Squamous Epithelial Cells RARE /HPF Urine Crystals NONE /LPF Urine Bacteria LARGE H /HPF Urine Casts NONE /LPF Urine Mucus NEGATIVE /LPF Urine Culture Indicated YES Glucometer > 600 *H 517 *H 70-110 MG/DL White Blood Count 12.4 H 4.3-11.0 10^3/uL Red Blood Count 4.84 4.35-5.85 10^6/uL Hemoglobin 12.8 L 13.3-17.7 G/DL Hematocrit 40 40-54 % Mean Corpuscular Volume 82 80-99 FL Mean Corpuscular Hemoglobin 26 25-34 PG Mean Corpuscular Hemoglobin Concent 32 32-36 G/DL Red Cell Distribution Width 13.3 10.0-14.5 % Platelet Count 251 130-400 10^3/uL Mean Platelet Volume 11.0 H 7.4-10.4 FL Neutrophils (%) (Auto) 82 H 42-75 % Lymphocytes (%) (Auto) 9 L 12-44 % Monocytes (%) (Auto) 9 0-12 % Eosinophils (%) (Auto) 0 0-10 % Basophils (%) (Auto) 0 0-10 % Neutrophils # (Auto) 10.2 H 1.8-7.8 X 10^3 Lymphocytes # (Auto) 1.1 1.0-4.0 X 10^3 Monocytes # (Auto) 1.1 H 0.0-1.0 X 10^3 Eosinophils # (Auto) 0.0 0.0-0.3 10^3/uL Basophils # (Auto) 0.0 0.0-0.1 10^3/uL Sodium Level 126 L 135-145 MMOL/L Potassium Level 5.3 H 3.6-5.0 MMOL/L Chloride Level 88 L 98-107 MMOL/L Carbon Dioxide Level 20 L 21-32 MMOL/L Anion Gap 18 H 5-14 MMOL/L Blood Urea Nitrogen 22 H 7-18 MG/DL Creatinine 1.46 H 0.60-1.30 MG/DL Estimat Glomerular Filtration Rate 48 BUN/Creatinine Ratio 15 Glucose Level 677 *H 70-105 MG/DL Calcium Level 10.3 H 8.5-10.1 MG/DL Corrected Calcium 10.4 H 8.5-10.1 MG/DL Magnesium Level 1.8 1.8-2.4 MG/DL Total Bilirubin 0.7 0.1-1.0 MG/DL Aspartate Amino Transf (AST/SGOT) 13 5-34 U/L Alanine Aminotransferase (ALT/SGPT) 18 0-55 U/L Alkaline Phosphatase 165 H 40-136 U/L Troponin I < 0.028 <0.028 NG/ML Total Protein 8.0 6.4-8.2 GM/DL Albumin 3.9 3.2-4.5 GM/DL Test 03/08/19 12:05 03/08/19 16:07 03/08/19 20:49 03/09/19 04:55 Range/Units Lactic Acid Level 1.35 0.50-2.00 MMOL/L Glucometer 474 *H 356 H 70-110 MG/DL White Blood Count 10.7 4.3-11.0 10^3/uL Red Blood Count 4.04 L 4.35-5.85 10^6/uL Hemoglobin 11.0 L 13.3-17.7 G/DL Hematocrit 34 L 40-54 % Mean Corpuscular Volume 84 80-99 FL Mean Corpuscular Hemoglobin 27 25-34 PG Mean Corpuscular Hemoglobin Concent 32 32-36 G/DL Red Cell Distribution Width 13.2 10.0-14.5 % Platelet Count 190 130-400 10^3/uL Mean Platelet Volume 10.8 H 7.4-10.4 FL Neutrophils (%) (Auto) 80 H 42-75 % Lymphocytes (%) (Auto) 11 L 12-44 % Monocytes (%) (Auto) 8 0-12 % Eosinophils (%) (Auto) 0 0-10 % Basophils (%) (Auto) 0 0-10 % Neutrophils # (Auto) 8.6 H 1.8-7.8 X 10^3 Lymphocytes # (Auto) 1.2 1.0-4.0 X 10^3 Monocytes # (Auto) 0.9 0.0-1.0 X 10^3 Eosinophils # (Auto) 0.0 0.0-0.3 10^3/uL Basophils # (Auto) 0.0 0.0-0.1 10^3/uL Sodium Level 131 L 135-145 MMOL/L Potassium Level 4.6 3.6-5.0 MMOL/L Chloride Level 98 98-107 MMOL/L Carbon Dioxide Level 19 L 21-32 MMOL/L Anion Gap 14 5-14 MMOL/L Blood Urea Nitrogen 15 7-18 MG/DL Creatinine 0.90 0.60-1.30 MG/DL Estimat Glomerular Filtration Rate > 60 BUN/Creatinine Ratio 17 Glucose Level 322 H 70-105 MG/DL Calcium Level 8.6 8.5-10.1 MG/DL Magnesium Level 1.7 L 1.8-2.4 MG/DL Test 03/09/19 05:54 03/09/19 11:42 03/09/19 15:50 Range/Units Glucometer 298 H 431 *H 312 H 70-110 MG/DL Physical Exam-(CHC) Physical Exam Vital Signs VS - Last 72 Hours, by Label 03/08/19 03/08/19 03/08/19 03/08/19 10:10 10:56 13:05 13:22 Temp 98.7 98.7 98.7 Pulse 82 75 75 Resp 20 18 18 B/P (MAP) 110/83 (92) 109/71 (84) 109/71 Pulse Ox 94 86 94 94 O2 Delivery Room Air Room Air Nasal Cannula Nasal Cannula O2 Flow Rate 4.00 3.50 3.50 3.50 03/08/19 03/08/19 03/08/19 03/08/19 13:47 15:01 16:00 19:00 Temp 98.0 Pulse 75 74 74 Resp 20 B/P (MAP) 111/71 (84) Pulse Ox 94 95 O2 Delivery Nasal Cannula Nasal Cannula O2 Flow Rate 1.00 1.00 03/08/19 03/08/19 03/08/19 03/09/19 20:00 20:00 20:00 00:00 Temp 98.6 100.6 Pulse 81 89 Resp 22 18 B/P (MAP) 134/82 (99) 142/74 (96) Pulse Ox 97 93 O2 Delivery Nasal Cannula Nasal Cannula Nasal Cannula Nasal Cannula O2 Flow Rate 1.00 1.00 1.00 1.00 03/09/19 03/09/19 03/09/19 03/09/19 01:00 02:22 04:00 07:00 Temp 97.4 97.6 Pulse 88 80 82 Resp 18 B/P (MAP) 144/86 (105) Pulse Ox 94 O2 Delivery Nasal Cannula O2 Flow Rate 1.00 03/09/19 03/09/19 03/09/19 03/09/19 08:00 08:00 12:00 13:00 Temp 97.6 97.8 Pulse 83 74 74 Resp 18 18 B/P (MAP) 150/89 (109) 100/63 (75) Pulse Ox 94 96 O2 Delivery Room Air Nasal Cannula Nasal Cannula O2 Flow Rate 1.00 1.00 03/09/19 16:25 O2 Delivery Nasal Cannula O2 Flow Rate 1.00 Capillary Refill : Less Than 3 Seconds General Appearance: WD/WN, no apparent distress HEENT: PERRL/EOMI, pharynx normal Respiratory: lungs clear, normal breath sounds Cardiovascular: regular rate, rhythm, no murmur Gastrointestinal: normal bowel sounds, non tender, soft 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 (1) Diabetes mellitus Status: Chronic Assessment & Plan: Sliding scale insulin. Metformin resumed now that creatinine back to normal. Qualifiers: (2) Urinary tract infection Status: Acute Assessment & Plan: Ceftriaxone, awaiting culture Qualifiers: Qualified Codes: N39.0 - Urinary tract infection, site not specified (3) Acute renal failure Status: Resolved Assessment & Plan: Resolved overnight with IVF Qualifiers: Qualified Codes: N17.9 - Acute kidney failure, unspecified (4) Generalized weakness Status: Acute Assessment & Plan: PT (5) Depression Status: Acute Assessment & Plan: Resumed home meds, but seroquel at lower dose given his weakness and balance concerns. Qualifiers: Qualified Codes: F32.9 - Major depressive disorder, single episode, unspecified (6) Chest pain Status: Acute Assessment & Plan: Intermittent, none since admission. EKG and troponin negative. Qualifiers: Qualified Codes: R07.9 - Chest pain, unspecified (7) DVT prophylaxis Status: Acute Assessment & Plan: Enoxaparin Clinical Quality Measures DVT/VTE Risk/Contraindication: Risk Factor Score Per Nursin RFS Level Per Nursing on Admit: 4+=Very High IDALIA LAMAR MD Mar 09, 2019 10:47
[2019-03-09] MEDS: cefTRIAXone 1,000 MG/SWFI 10 ML IV PUSH IV SCH ×2 (12:02)
--- NOTE | 2019-03-09 14:14 | Physical Therapy Progress Note ---
Therapy Progress Note PT eval order received, but patient refused this afternoon. Patient states that he told the doctor that he would not participate in PT. It is unknown why he is so upset about it. He says his is bringing his sandals tomorrow and he might get out of bed and work with PT tomorrow. CHANDNI SORENSEN PT Mar 09, 2019 14:14
[2019-03-09] MEDS: VENlafaxine XR 75 MG (EFFEXOR XR) CAP PO SCH (16:15)
[2019-03-09] MEDS: ENOXAPARIN 40 MG/0.4 ML (LOVENOX) SYR SQ SCH (19:53)
[2019-03-09] MEDS ORDERED: NON-FORMULARY MEDICATION 1 EA EA (Melatonin 5 MG) PO SCH (21:00)
[2019-03-09] MEDS: ATORVASTATIN 40 MG (LIPITOR) TABLET PO SCH (21:34)
[2019-03-09] MEDS: MELATONIN 3 MG TABLET PO SCH (21:34)
[2019-03-10] MEDS: NS IV 1000 ML 1,000 ML IV SCH ×3 (02:47→17:07)
[2019-03-10 04:00] VITALS: BP 145/88
[2019-03-10 05:57] LABS: HEMOGLOBIN 10.6 G/DL (13.3-17.7); MEAN PLATELET VOLUME 10.9 FL (7.4-10.4); RED CELL DISTRIBUTION WIDTH 13.1 % (10.0-14.5); WHITE BLOOD COUNT 9.6 10^3/uL (4.3-11.0)
[2019-03-10 06:23] LABS: BUN/CREATININE RATIO 11; CALCIUM 8.6 MG/DL (8.5-10.1); CARBON DIOXIDE 18 MMOL/L (21-32); CHLORIDE 100 MMOL/L (98-107); CREATININE SERUM 0.79 MG/DL (0.60-1.30); GFR ESTIMATED > 60; GLUCOSE 280 MG/DL (70-105); MAGNESIUM 1.6 MG/DL (1.8-2.4); POTASSIUM 4.2 MMOL/L (3.6-5.0); SODIUM 133 MMOL/L (135-145)
[2019-03-10] MEDS: inSUlin ASPART (NovoLOG) 1 UNIT/0.01 ML (CHARGE PER UNIT) SC SCH ×6 (06:28→21:09)
[2019-03-10] MEDS: metFORMIN 500 MG (GLUCOPHAGE) TAB PO SCH ×2 (06:29→17:07)
[2019-03-10] MEDS: VENlafaxine XR 75 MG (EFFEXOR XR) CAP PO SCH ×2 (06:29→17:06)
[2019-03-10 08:00] VITALS: BP 140/88
[2019-03-10] MEDS: MAGNESIUM 1 GM/100 ML IVPB 100 ML IV SCH ×2 (08:18→08:27)
[2019-03-10] MEDS: CARVEDILOL 12.5 MG (COREG) TABLET PO SCH ×2 (08:19→19:59)
[2019-03-10] MEDS: GABAPENTIN 300 MG (NEURONTIN) CAP PO SCH ×2 (08:19→19:59)
--- NOTE | 2019-03-10 10:00 | Physical Therapy Evaluation ---
PT Evaluation-General Medical Diagnosis Admission Date Mar 08, 2019 at 12:30 Medical Diagnosis: weakness Onset Date: Mar 08, 2019 Therapy Diagnosis Therapy Diagnosis: impaired mobility, endurance Height/Weight Height (Feet): 6 Height (Inches): 1.00 Weight (Pounds): 251 Weight (Ounces): 9.0 Precautions Precautions/Isolations: Fall Prevention, Standard Precautions Referral Physician: Willard Reason for Referral: Evaluation/Treatment Medical History Pertinent Medical History: DM, HTN Additional Medical History Past Medical History PMHx: DMII Depression Anxiety HTN HLD SurgHx: BPH treatment Hernia x 3 Appendectomy Back surgery Reviewed History: Yes Social History Home: Single Level Current Living Status: Spouse Entry Into Home: Stairs With Railing PT Steps Into Home: 2 Prior/Core FIM Prior Level of Function Therapy Code Descriptions/Definitions Functional [place] Measure: 0=Not Assessed/NA 4=Minimal Assistance 1=Total Assistance 5=Supervision or Setup 2=Maximal Assistance 6=Modified [place] 3=Moderate Assistance 7=Complete [place] Therapy Quality Codes: 6 Independent with activity with or without an assistive device 5 Patient requires set up or clean up by helper. Patient completes activity by themselves 4 Supervision or touching assist (CGA). [place] provide cues , steadying assist 3 The helper provides less than half the effort to complete the activity 2 The helper provides more than half the effort to complete the activity 1 Dependent. The helper does all the effort to complete an activity 7 Patient refused to complete or attempt activity 9 The patient did not perform the activity before the current illness or injury 88 Not attempted due to Medical conditions or safety concerns Functional Abilities and Goals: Independent: Patient completed the activities by him/herself, with or without an assistive device, with no assistance from a helper. Needed Some Help: Patient needed partial assistance from another person to complete activities. Dependent: A helper completed the activities for the patient. Unknown: Not Applicable: Bed Mobility: 7 Transfers (B,C,W/C) (FIM): 7 Gait: 7 Stairs: 7 Indoor Mobility (Ambulation): Independent Stairs: Independent PT Evaluation-Current Subjective Patient sitting EOB pre tx, agrees to PT, has no complaints of pain. Nurse reports patient has been ambulating on his own without any issues. Pt/Family Goals to be independent at home Objective Patient Orientation: Person, Place, Situation ROM/Strength ROM Lower Extremities WNL Strength Lower Extremities 5/5 gross bilateral lower extremities Sensory Vision: Functional Hearing: Functional Transfers Therapy Code Descriptions/Definitions Functional [place] Measure: 0=Not Assessed/NA 4=Minimal Assistance 1=Total Assistance 5=Supervision or Setup 2=Maximal Assistance 6=Modified [place] 3=Moderate Assistance 7=Complete [place] Transfers (B, C, W/C) (FIM): 7 Sit to/from Stand: 7 Gait Mode of Locomotion: Walk Anticipated Mode of Locomotion: Walk Gait (FIM): 7 Distance: 300' Gait Assistive Device: None Comments/Gait Description Patient ambulates independently, no LOB, steady. Balance Sitting Static: Normal Sitting Dynamic: Normal Standing Static: Normal Standing Dynamic: Normal Assessment/Needs Patient ambulates and performs transfers independently. Good balance. Patient will be discharged from PT services at this time. Rehab Potential: Good PT Plan Treatment/Plan Treatment Plan: Discontinue PT Treatment Plan: Other Treatment Duration: Mar 10, 2019 Frequency: Estimated Hrs Per Day: Other Patient and/or Family Agrees t: Yes Safety Risks/Education Patient Education: Gait Training, Transfer Techniques, Correct Positioning, Safety Issues Teaching Recipient: Patient Teaching Methods: Demonstration, Discussion Response to Teaching: Reinforcement Needed Discharge Recommendations Plan DC Time/GCodes Time In: 0939 Time Out: 0953 Total Billed Treatment Time: 14 Total Billed Treatment 1 visit EVL CHANDNI HENDERSON PT Mar 10, 2019 10:00
[2019-03-10] MEDS: cefTRIAXone 1,000 MG/SWFI 10 ML IV PUSH IV SCH ×2 (11:18)
[2019-03-10 12:00] VITALS: BP 143/81
[2019-03-10] MEDS: ACETAMINOPHEN 500 MG TAB (TYLENOL) PO PRN ×2 (12:49→21:14)
--- NOTE | 2019-03-10 13:17 | NUR ---
Initial visit. Pt is Anglican. The pt mentioned that his was able to make whatever contacts were necessary at this time.
[2019-03-10 16:09] VITALS: BP 126/74
--- NOTE | 2019-03-10 16:38 | Progress Note ---
Subjective Subjective/Events-last exam Afebrile, blood sugar remains high. Reports he is bothered by his incontinence, but otherwise okay. Focused Exam Lactate Level 03/08/19 12:05: Lactic Acid Level 1.35 Objective Exam Last Set of Vital Signs Vital Signs Date Time Temp Pulse Resp B/P (MAP) Pulse Ox O2 Delivery O2 Flow Rate FiO2 03/10/19 16:09 98.0 81 18 126/74 (91) 95 Room Air 03/09/19 16:25 1.00 Capillary Refill : Less Than 3 Seconds I&O Intake and Output0 03/10/19 00:00 Intake Total 3110 ml Output Total 5250 ml Balance -2140 ml Intake Oral 3010 ml IV Total 100 ml Output Urine Total 4950 ml Post Void Residual 300 ml # Voids 1 # Bowel Movements 3 General: Alert, No Acute Distress Lungs: Clear to Auscultation, Normal Air Movement Heart: Regular Rate, No Murmurs Abdomen: Normal Bowel Sounds, Soft Neuro: Normal Speech Results/Procedures Lab Laboratory Tests 03/09/19 21:31: Glucometer 368H 03/10/19 05:22: White Blood Count 9.6, Red Blood Count 3.88L, Hemoglobin 10.6L, Hematocrit 33L, Mean Corpuscular Volume 85, Mean Corpuscular Hemoglobin 27, Mean Corpuscular Hemoglobin Concent 32, Red Cell Distribution Width 13.1, Platelet Count 189, Mean Platelet Volume 10.9H, Sodium Level 133L, Potassium Level 4.2, Chloride Level 100, Carbon Dioxide Level 18L, Anion Gap 15H, Blood Urea Nitrogen 9, Creatinine 0.79, Estimat Glomerular Filtration Rate > 60, BUN/Creatinine Ratio 11, Glucose Level 280H, Calcium Level 8.6, Magnesium Level 1.6L 03/10/19 06:12: Glucometer 314H 03/10/19 11:15: Glucometer 273H 03/10/19 15:34: Glucometer 329H Microbiology 03/08/19 Blood Culture - Preliminary, Resulted Gram Negative Ritchie 03/08/19 Urine Culture - Final, Complete Enterobacter aerogenes Assessment/Plan Assessment/Plan (1) Diabetes mellitus Status: Chronic Assessment & Plan: Sliding scale insulin. Metformin resumed now that creatinine back to normal. 03/10 start levemir 10 units daily and scheduled aspart 5 units with meals in addition to sliding scale Qualifiers: (2) Urinary tract infection Status: Acute Assessment & Plan: Ceftriaxone, awaiting culture Qualifiers: Qualified Codes: N39.0 - Urinary tract infection, site not specified (3) Acute renal failure Status: Resolved Assessment & Plan: Resolved overnight with IVF Qualifiers: Qualified Codes: N17.9 - Acute kidney failure, unspecified (4) Generalized weakness Status: Acute Assessment & Plan: PT 03/10 able to walk long distance in [place] (5) Depression Status: Acute Assessment & Plan: Resumed home meds, but seroquel at lower dose given his weakness and balance concerns. Qualifiers: Qualified Codes: F32.9 - Major depressive disorder, single episode, unspecified (6) Chest pain Status: Acute Assessment & Plan: Intermittent, none since admission. EKG and troponin negative. Qualifiers: Qualified Codes: R07.9 - Chest pain, unspecified (7) DVT prophylaxis Status: Acute Assessment & Plan: Enoxaparin Clinical Quality Measures DVT/VTE Risk/Contraindication: Risk Factor Score Per Nursin RFS Level Per Nursing on Admit: 4+=Very High IDALIA REID MD Mar 10, 2019 16:38
[2019-03-10] MEDS: ENOXAPARIN 40 MG/0.4 ML (LOVENOX) SYR SQ SCH (17:07)
[2019-03-10] MEDS: MELATONIN 3 MG TABLET PO SCH (19:59)
[2019-03-10] MEDS: ATORVASTATIN 40 MG (LIPITOR) TABLET PO SCH (19:59)
[2019-03-10 20:33] VITALS: BP 153/80
[2019-03-10] MEDS ORDERED: NAPROXEN 250 MG (NAPROSYN) TABLET PO PRN (22:30)
[2019-03-10] MEDS ORDERED: SEROQUEL PO ONE (22:40)
--- NOTE | 2019-03-10 22:45 | NUR ---
PT. COMPLAINING OF MIGRAINE HEADACHE UNRELIEVED BY TYLENOL. DR. RIZZO NOTIFIED, NEW ORDERS RECEIVED: NAPROXEN 500MG PO Q12HRS PRN, SEROQUEL 800MG PO HS WILL CONTINUE TO MONITOR.
--- NOTE | 2019-03-10 22:50 | NUR ---
EPHARMACY SUBSTITUTED SEROQUEL 800MG PO HS ORDERED BY DR. RIZZO TO SEROQUEL IMMEDIATE RELEASE 400MG PO BID
[2019-03-10] MEDS: QUEtiapine 200 MG (SEROquel) TAB IMMEDIATE RELEASE PO SCH (23:03)
[2019-03-11] VITALS: BP 124/82
[2019-03-11 04:00] VITALS: BP 103/59
[2019-03-11 05:08] LABS: MEAN PLATELET VOLUME 10.7 FL (7.4-10.4); RED CELL DISTRIBUTION WIDTH 13.4 % (10.0-14.5); WHITE BLOOD COUNT 8.5 10^3/uL (4.3-11.0)
[2019-03-11] MEDS: inSUlin ASPART (NovoLOG) 1 UNIT/0.01 ML (CHARGE PER UNIT) SC SCH ×4 (05:12→11:17)
[2019-03-11 05:28] LABS: BUN/CREATININE RATIO 13; CALCIUM 8.4 MG/DL (8.5-10.1); CARBON DIOXIDE 21 MMOL/L (21-32); CHLORIDE 105 MMOL/L (98-107); CREATININE SERUM 0.82 MG/DL (0.60-1.30); GFR ESTIMATED > 60; GLUCOSE 326 MG/DL (70-105); MAGNESIUM 1.7 MG/DL (1.8-2.4); POTASSIUM 3.9 MMOL/L (3.6-5.0); SODIUM 136 MMOL/L (135-145)
[2019-03-11] MEDS: metFORMIN 500 MG (GLUCOPHAGE) TAB PO SCH (06:13)
[2019-03-11] MEDS: VENlafaxine XR 75 MG (EFFEXOR XR) CAP PO SCH (06:14)
[2019-03-11] MEDS: NS IV 1000 ML 1,000 ML IV SCH ×2 (06:28→09:09)
[2019-03-11 08:00] VITALS: BP 122/85
[2019-03-11] MEDS ORDERED: SULF1TAB35 PO (08:53)
[2019-03-11] MEDS ORDERED: INSU100I29 SQ (08:53)
--- NOTE | 2019-03-11 08:54 | Discharge Inst-Simple/Standard ---
Discharge Inst-Standard Discharge Medications New, Converted or Re-Newed RX: Transmitted to Pharmacy ([facility] in [place]) Patient Instructions/Follow Up Plan of Care/Instructions/FU: with Dr Benítez within the week Activity as Tolerated: Yes Discharge Diet: ADA Diet [facility] to [facility]: unable to hold down fluids. Worsening weakness MEGA RIZZO MD Mar 11, 2019 08:54
--- NOTE | 2019-03-11 08:59 | Discharge Summary ---
Diagnosis/Chief Complaint Date of Admission Mar 08, 2019 at 12:30 Date of Discharge March 11, 2019 Admission Diagnosis Admission Diagnosis 1. Diabetes mellitus uncontrolled 2. Urinary tract infection 3. Acute renal failure 4. Weakness 5. Depression Discharge Diagnosis 1. Diabetes mellitus uncontrolledplaced back on insulin Levemir 2. Urinary tract infectionEnterobacter 3. Acute renal failureresolved 4. Weaknessimproved 5. Depression Problems/Diagnosis: (1) Diabetes mellitus Assessment & Plan: Sliding scale insulin. Metformin resumed now that creatinine back to normal. 03/10 start levemir 10 units daily and scheduled aspart 5 units with meals in addition to sliding scale 03/01 patient to be discharged to home today and will take Levemir 10 units at night -He will discuss with Self regular insulin with meals. Patient will c ontinue with metformin as well. Qualifiers: Status: Chronic (2) Urinary tract infection Assessment & Plan: Ceftriaxone, awaiting culture 03/11 -patient noted to have Enterobacter by cul -He will be released to home today and take Bactrim double strength. Qualifiers: Qualified Codes: N39.0 - Urinary tract infection, site not specified Status: Acute (3) Acute renal failure Assessment & Plan: Resolved overnight with IVF Qualifiers: Qualified Codes: N17.9 - Acute kidney failure, unspecified Status: Resolved Resolution Date/Time: 03/09/19 @ 18:34 (4) Generalized weakness Assessment & Plan: PT 03/10 able to walk long distance in [place] 03/11 -physical therapy went well yesterday and is walking well. Status: Acute (5) Depression Assessment & Plan: Resumed home meds, but seroquel at lower dose given his weakness and balance concerns. Qualifiers: Qualified Codes: F32.9 - Major depressive disorder, single episode, unspecified Status: Acute (6) Chest pain Assessment & Plan: Intermittent, none since admission. EKG and troponin negative. Qualifiers: Qualified Codes: R07.9 - Chest pain, unspecified Status: Acute (7) DVT prophylaxis Assessment & Plan: Enoxaparin Status: Acute Chief Complaint/HPI Chief Complaint/HPI Pt came to ER for several reasons, had urinary incontinence worsening over last couple of months, weakness, skin not healing well and has had some chest pain. When diagnosed with DMII he had A1c 14 and was started on metformin and insulin TID, did that and exercised and A1c went down to 6.8 and he stopped doing things. He notes that he has not eaten right or kept up with exercising. Discharge Summary-Simple/Stand Consultations Discharge Physical Examination Allergies: Coded Allergies: No Known Drug Allergies (Unverified , 12/17/18) Vitals & I&Os Vital Sign - Last 12Hours Date Time Temp Pulse Resp B/P (MAP) Pulse Ox O2 Delivery O2 Flow Rate FiO2 03/11/19 07:00 72 03/11/19 04:00 97.0 16 103/59 (74) 93 Room Air 03/09/19 16:25 1.00 Intake and Output 03/11/19 00:00 Intake Total 1520 ml Output Total 2250 ml Balance -730 ml Hospital Course See final discharge diagnosis. Discharge Instructions to patient/family Please see electronic discharge instructions given to patient. Discharge Medications Reviewed and agree with Discharge Medication list on patient's Discharge Instruction sheet Clinical Quality Measures DVT/VTE Risk/Contraindication: Risk Factor Score Per Nursin RFS Level Per Nursing on Admit: 4+=Very High MEGA RIZZO MD Mar 11, 2019 08:59
[2019-03-11] MEDS: QUEtiapine 200 MG (SEROquel) TAB IMMEDIATE RELEASE PO SCH (09:09)
[2019-03-11] MEDS: CARVEDILOL 12.5 MG (COREG) TABLET PO SCH (09:09)
[2019-03-11] MEDS: GABAPENTIN 300 MG (NEURONTIN) CAP PO SCH (09:09)
[2019-03-11] MEDS: cefTRIAXone 1,000 MG/SWFI 10 ML IV PUSH IV SCH ×2 (11:17)
[2019-03-11 11:57] VITALS: BP 141/87
[2019-03-11 14:17] VITALS: BP 141/87
--- NOTE | 2019-03-11 14:20 | NUR ---
MEGA NESBITT demonstrates understanding of discharge instructions and accurately returns instructions upon questioning. Copy of Post-Discharge Instructions and Medication Discharge Instructions given to PATIENT AND . MEGA NESBITT is able to manage continuing needs after discharge. Patients belongings returned to . Skin dry and intact; no breakdown noted. Patient discharged from [facility]- on 03/11/2019 at 1415. MEGA NESBITT left floor via WHEELCHAIR, accompanied by STAFF AND .
[2019-03-11] MEDS ORDERED: SEROQUEL PO ONE (21:00)
== END 2019-03-11 14:15 | disposition home or self-care (01) | DRG 638 ==
LOC: EDUNIT# 09:57 → ER 09:58 → 4TH 12:30
PROVIDERS: ADMIT Family Medicine; ATTEND Family Medicine
DX: E11.65 Type 2 diabetes mellitus with hyperglycemia (principal); N39.0 Urinary tract infection, site not specified; N17.9 Acute kidney failure, unspecified; R07.9 Chest pain, unspecified; R53.1 Weakness; I10 Essential (primary) hypertension; F32.9 Major depressive disorder, single episode, unspecified; F41.9 Anxiety disorder, unspecified; Z66 Do not resuscitate; E78.00 Pure hypercholesterolemia, unspecified; Z87.891 Personal history of nicotine dependence; Z91.19 Patient's noncompliance with other medical treatment and regimen; Z85.828 Personal history of other malignant neoplasm of skin; R32 Unspecified urinary incontinence; B96.89 Other specified bacterial agents as the cause of diseases classified elsewhere; Z79.4 Long term (current) use of insulin
CPT/HCPCS: 36415; 51702; 71045; 80048; 80053; 81000; 82962; 83605; 83735; 84484; 85025; 85027; 87040; 87077; 87088; 87186; 93005; 96361; 96365; 96375; 96376

== ENCOUNTER → 2019-06-05 | Outpatient (CLI) | payer MEDICARE, OTHER ==
[~2019-06-05] MED LIST changes: +INSU100I29 SQ; +MELA5TAB14 PO; +SULF1TAB35 PO; +VENL150C PO
[2019-06-05 16:23] LABS: ALANINE AMINOTRANSFERASE 193 U/L (0-55); ALKALINE PHOSPHATASE 161 U/L (40-136); BILIRUBIN,TOTAL 0.4 MG/DL (0.1-1.0); BUN/CREATININE RATIO 14; CALCIUM 9.4 MG/DL (8.5-10.1); CARBON DIOXIDE 26 MMOL/L (21-32); CHLORIDE 100 MMOL/L (98-107); CREATININE SERUM 0.92 MG/DL (0.60-1.30); GFR ESTIMATED > 60; GLUCOSE 134 MG/DL (70-105); POTASSIUM 4.4 MMOL/L (3.6-5.0); SODIUM 138 MMOL/L (135-145)
[2019-06-05 16:24] LABS: ALBUMIN 4.2 GM/DL (3.2-4.5); TOTAL PROTEIN 7.5 GM/DL (6.4-8.2)
== END ==
LOC: LAB FS 15:47
PROVIDERS: ATTEND Family Medicine
DX: I10 Essential (primary) hypertension (principal)
CPT/HCPCS: 36415; 80053

== ENCOUNTER → 2019-06-06 | Outpatient (CLI) | payer MEDICARE, OTHER ==
[~2019-06-06] MED LIST changes: +CATHETER FLUSH 10 ML SYR IV PRN; +HOLD METFORMIN - RECEIVED CONTRAST 20 ML VIAL IV SCH; +IOHEXOL 350 MG/ML 100 ML (OMNIPAQUE 350) VIAL IV ONE; +NS 100 ML (IVPB) BAG IV ONE
--- NOTE | 2019-06-06 16:32 | Diagnostic Imaging Report ---
PROCEDURE: CT pelvis with contrast. TECHNIQUE: Oral and intravenous contrast were administered with pelvic CT performed. Auto Exposure Controls were utilized during the CT exam to meet ALARA standards for radiation dose reduction. INDICATION: Enlargement of the scrotal sac for five days and epididymitis. COMPARISON: No prior studies are available for comparison. FINDINGS: There is moderate stool in the colon. The visualized small bowel loops are normal in caliber. No free fluid or loculated fluid collection in the pelvis is seen. There is some generalized bladder wall thickening present. No definite inguinal or iliac lymphadenopathy is seen. No pelvic mass is identified. Prostate is normal in size and contains central calcifications. Seminal vesicles are unremarkable. No definite inguinal hernia is identified. Bony structures are nonacute. IMPRESSION: 1. There is some generalized bladder wall thickening. While this could be owing to incomplete distention, possibility of cystitis cannot be entirely excluded. 2. Otherwise, unremarkable CT of the pelvis. Dictated by: Dictated on workstation # [id number]
== END ==
LOC: LAB FS 06-05 15:40 → RAD FS 13:58
PROVIDERS: ATTEND Family Medicine
DX: N32.89 Other specified disorders of bladder (principal); N50.89 Other specified disorders of the male genital organs; N45.1 Epididymitis; I10 Essential (primary) hypertension
CPT/HCPCS: 72193

== ENCOUNTER → 2019-11-15 | Outpatient (CLI) | payer MEDICARE, OTHER ==
[~2019-11-15] MED LIST changes: -CATHETER FLUSH 10 ML SYR IV PRN; -HOLD METFORMIN - RECEIVED CONTRAST 20 ML VIAL IV SCH; -IOHEXOL 350 MG/ML 100 ML (OMNIPAQUE 350) VIAL IV ONE; -MELA3TAB PO; +MELA3TAB39 PO; -NS 100 ML (IVPB) BAG IV ONE; -TAMS0.4C98 PO; +TMSL.4C PO
--- NOTE | 2019-11-15 11:41 | Diagnostic Imaging Report ---
INDICATION: Lumbago. COMPARISON: None available TECHNIQUE: 3 radiographs lumbar spine dated 11/15/2019. FINDINGS: 5 lumbar type vertebral bodies are present. Alignment of the lumbar spine is well maintained. Besides endplate degenerative changes, vertebral body heights are well-maintained. Moderate disc space height loss at L4/L5 and L5/S1 with associated small anterior osteophyte formation. No acute fracture or dislocation. No destructive osseous process. Scattered facet joint degenerative changes, greatest within the lower lumbar spine. Vascular calcifications are present. The sacroiliac joints appear intact. IMPRESSION: No acute osseous abnormality with moderate degenerative changes, particularly at L4/L5 and L5/S1. Dictated by: Dictated on workstation # [id number]
== END ==
LOC: RAD FS 11:23
PROVIDERS: ATTEND Nurse Practitioner
DX: M47.816 Spondylosis without myelopathy or radiculopathy, lumbar region (principal)
CPT/HCPCS: 72100

== ENCOUNTER 2020-02-16 17:03 | Emergency (ER) | payer MEDICARE, OTHER ==
[~2020-02-16] VITALS: Ht 185 cm; Wt 136.0 kg
[2020-02-16] MEDS ORDERED: SUCCINYLCHOLINE INJ 100 MG/5 ML SYR INJ ONE (17:06)
[2020-02-16] MEDS ORDERED: MIDAZOLAM 5 MG/5 ML (VERSED) VIAL INJ ONE (17:06)
[2020-02-16] MEDS ORDERED: ETOMIDATE IV SOLN 20 MG/10 ML VIAL IV ONE (17:06)
[2020-02-16] MEDS ORDERED: fentaNYL INJECTION 100 MCG/2 ML AMP INJ ONE (17:06)
--- OUTSIDE RECORDS SUMMARY | 2020-02-16 17:09 | XMS REPORT ---
Author Author [place] [facility] Address [address] [place] [address] Care Team Providers Care Nitroglycerin Nitrator Operator Batch Name Role Phone CODIE FRYWELL Unavailable PROBLEMS Type Condition ICD9-CM Code PRN55-KS Code Onset Dates Condition S tatus SNOMED Code Problem Drug-seeking behavior Z76.5 Oct, Activ e 474611359 Problem Non-traumatic rhabdomyolysis M62.82 11 Feb, 201 7 Active 991770221 Problem Fatty infiltration of liver K76.0 20 Jul, 2013 Active 591268968 Problem Benign prostatic hyperplasia with lower urinary tract symptoms N40.1 14 Oct, 2016 Active 74492008684585 Problem LVH (left ventricular hypertrophy) I51.7 14 , 2009 Active 0602458 Problem Diabetic polyneuropathy asso ciated with diabetes mellitus due to underlying condition E08.42 Oct, Active 8897081 02 Problem Non morbid obesity due to excess calories E66.09 05 Apr, 2017 Active 907760437 Problem Essential hypertension I10 14 Jul, 2009 Acti ve 45664696 Problem Hypoxia R09.02 Active 045998943 Problem Type 2 diabetes mellitus with hyperglycemia E11.65 Active 346959635248560 Problem Diabetes mellitus type II, controlled, with no complicatio ns E11.9 Active 334341545 Problem Constipation K59.00 Active 6709896 8 Problem Schizoaffective disorder, depressive type F25.1 Active 09321623 Problem Obesity (BMI 30-39.9) E66.9 Active 827157215 Problem Depression F32.9 28 Apr, 2011 Active 470128 005 Problem Headache disorder R51 Oct, Active 003687849 Problem Neuropathy G62.9 Active 147941675 Problem BMI 40.0-44.9, adult Z68.41 Active 040445729 Problem BMI 45.0-49.9, adult Z68.42 Active 856304704 Problem Morbid (severe) obesity due to excess calories E66 .01 Active 289978207 ALLERGIES No Information ENCOUNTERS Encounter Location Date Diagnosis [address] [place] [address] December, [address] [place] [address] Oct, Essential hypertension I10 [address] [place] [address] Sep, Abdominal distension R14.[address] [place] [address] Sep, Generalized abdominal pain R 10.84 [address] [place] [address] Sep, [address] [place] [address] Sep, Constipation K59.00 ; Dorsal luis enrique M54.9 and Essential hypertension I10 [address] [place] [address] Sep, Lumbar pain M54.5 [address] [place] [address] Sep, [facility] [address] [place] [address] Sep, Abdominal distension R14.0 [address] [place] [address] Sep, Abdominal distension R14.0 a nd Edema, unspecified type R60.9 [address] [place] [address] Sep, [address] [place] [address] Sep, [address] [place] [address] 07 Sep, 2019 Lumbar pain M54.5 ; BMI 40.0 -44.9, adult Z68.41 and Essential hypertension I10 [address] [address] Sep, Encounter for Medicare inés wellness exam Z00.00 ; Essential hypertension I10 ; Diabetic polyneuropathy associated with diabetes mellitus due to underlying condition E08.42 ; Morbid (severe) obesity due to excess calories E66.01 and BMI 40.0-44.9, adult Z68.41 [address] [address] Jul, Essential hypertension I10 a nd Type 2 diabetes mellitus with hyperglycemia E11.65 [address] [address] Jul, Type 2 diabetes mellitus wit h hyperglycemia E11.65 ; Essential hypertension I10 and Diabetic polyneuropathy associated with diabetes mellitus due to underlying condition E08.42 [address] [address] Jun, Essential hypertension I10 ; Type 2 diabetes mellitus with hyperglycemia E11.65 and Neuropathy G62.9 [address] [address] May, Diabetes mellitus type II, c ontrolled, with no complications E11.9 ; Essential hypertension I10 and Encounter for immunization Z23 [address] [address] May, Enlargement of scrotal sac N 50.89 and Epididymitis N45.1 [address] [address] May, Swollen testicle N50.89 [address] [address] May, Epididymitis N45.1 ; Swollen testicle N50.89 and Right testicular pain N50.811 [address] [address] Apr, Diabetic polyneuropathy asso ciated with diabetes mellitus due to underlying condition E08.[address] [place] [address] Mar, Type 2 diabetes mellitus wit h hyperglycemia E11.65 [address] [place] [address] Mar, [address] [place] [address] Mar, [address] [place] [address] Mar, Essential hypertension I10 a nd Diabetic polyneuropathy associated with diabetes mellitus due to underlying condition E08.[address] [place] [address] Mar, Screening PSA (prostate spec ific antigen) Z12.5 ; Diabetes mellitus type II, controlled, with no complications E11.9 and Essential hypertension I10 [address] [place] [address] Mar, Screening PSA (prostate spec ific antigen) Z12.5 ; Diabetes mellitus type II, controlled, with no complications E11.9 and Essential hypertension I10 [address] [place] [address] Nov, [address] [place] [address] Nov, [facility] [address] [id number] [place] [address] Nov, [facility] [id number] [place] [address] Nov, [address] [place] [address] Nov, Diabetes mellitus type II, c ontrolled, with no complications E11.9 and Screening PSA (prostate specific antigen) Z12.5 [address] [place] [address] Nov, Diabetes mellitus type II, c ontrolled, with no complications E11.9 ; Urinary frequency R35.0 and Screening PSA (prostate specific antigen) Z12.5 [address] [place] [address] Oct, [address] [place] [address] Sep, [facility] [id number] [place] [address] Jul, [facility] [address] [address] Jul, [facility] [address] [address] May, [address] [place] [id number] [place] [address] Jan, [id number] [place] [address] December, IMMUNIZATIONS No Known Immunizations SOCIAL HISTORY Never Assessed REASON FOR VISIT New Refill Request PLAN OF CARE VITAL SIGNS MEDICATIONS Medication Instructions Dosage Frequency Start Date End Date Duration S tatus Carvedilol 25 MG Orally 2 times a day 2 capsules 12h Apr, 30 days Active Gabapentin 300 MG Orally 3 times a day 1 tablet 8h Apr, 30 days Active RESULTS No Results PROCEDURES No Known procedures INSTRUCTIONS MEDICATIONS ADMINISTERED No Known Medications MEDICAL (GENERAL) HISTORY Type Description Date Medical History Depression Medical History Essential hypertension Medical History Non morbid obesity due to excess calorie s Medical History Benign prostatic hyperplasia with lower urinary tract symptoms Medical History Diabetes mellitus type II, controlled, w ith no complications Medical History Elevated lactic acid level Medical History Diabetic polyneuropathy asso ciated with diabetes mellitus due to underlying condition Medical History LVH (left ventricular hypertrophy) Medical History Fatty infiltration of liver Medical History Drug-seeking behavior Medical History Non-traumatic rhabdomyolysis Medical History Headache disorder Medical History Schizoaffective disorder, depressive typ e Medical History Hypoxia Medical History Non-traumatic rhabdomyolysis Medical History Headache disorder Surgical History appendectomy Surgical History hernia repair Surgical History lumbar fusion Surgical History back surgery Surgical History colonoscopy Surgical History EGD Surgical History bilat, ear skin removal Surgical History lesion removal from left index finger Surgical History bladder surgery Hospitalization History surgeries Hospitalization History [facility]
[2020-02-16] MEDS ORDERED: NS IV 1000 ML 1,000 ML IV SCH (17:10)
--- OUTSIDE RECORDS SUMMARY | 2020-02-16 17:10 | XMS REPORT | Continuity of Care Document ---
Author Organization Unknown Address Unknown Phone Unavailable Allergies Active Description Code Type Severity Reaction Onset Reported/Identified Relationship to Patient Clinical Status Yes NO KNOWN DRUG ALLERGIES UNKNOWN NO KNOWN DRUG ALLERG Yes OTHER UNKNOWN OTHER Yes No Known Drug Allergies [id number] Drug Allergy Unknown N/A 12/17/2018 Medications Medication Packaging Start Date St op Date Route Dosage Sig TAMSULOSIN CAP 0.4 MG (FLOMAX) MG 02/26/2017 03/27/2017 QPM&1800 ACETAMINOPHEN ORAL TABLET 325mg(Tylenol) MG 02/26/2017 03/05/2017 PRN EVERY 6 Hour GABAPENTIN CAP 300 MG (NEURONTIN) MG 02/26/2017 03/28/2017 TID&0800,1400,2000 LAMOTRIGINE TAB 100 MG (LAMICTAL) MG 02/26/2017 03/28/2017 BID&0800,2000 VENLAFAXINE XR CAP 75 MG (EFFEXOR XR) MG 02/26/2017 03/28/2017 BID&0800,2000 METFORMIN TAB 500 MG (GLUCOPHAGE) MG 02/26/2017 03/28/2017 BID&0800,2000 LACTULOSE SYRUP LIQ 20 GM/30 CC (CHRONULAC SYRUP) GM 02/26/2017 03/08/2017 PRN BID MILK OF MAGNESIA LIQ ml 02/26/2017 03/05/2017 PRN BID QUETIAPINE TAB 100 MG (SEROQUEL) MG 02/26/2017 03/27/2017 QHS&2100 MELATONIN TAB 3 MG (MELATONIN) MG 02/26/2017 03/28/2017 PRN QHS TRAZODONE TAB 50 MG (DESYREL) MG 02/26/2017 03/28/2017 PRN QHS LORAZEPAM TAB 1 MG (ATIVAN) MG 02/26/2017 03/28/2017 PRN Q8H CALMOSEPTINE OINT TUBE (RISAMINE OINT) yolie 02/26/2017 03/05/2017 PRN QID LOPERAMIDE CAP 2 MG (IMMODIUM) MG 02/26/2017 03/05/2017 PRN QID CYCLOBENZAPRINE TAB 10 MG (FLEXERIL) MG 02/26/2017 03/28/2017 PRN Q8H ALUM/MAG/SIMETH 30CC LIQ (MYLANTA PLUS) cc 02/26/2017 03/08/2017 PRN Q4H IBUPROFEN TAB 400 MG (MOTRIN) MG 02/26/2017 03/28/2017 PRN Q6H LISINOPRIL TAB 10 MG (ZESTRIL) MG 02/27/2017 03/28/2017 Daily&0900 AMLODIPINE TAB 5 MG (NORVASC) MG 02/27/2017 03/28/2017 Daily&0900 FEXOFENADINE TAB 180 MG (SRINATH) MG 02/27/2017 03/28/2017 Daily&0900 BISACODYL SUPPOS SUP 10 MG (DULCOLAX SUPPO S) MG 02/27/2017 03/05/2017 PRN Daily MULTIVITAMIN CHEWS TAB (POLY VITAMIN CHEWS ) tab 02/27/2017 03/28/2017 Daily&0900 QUETIAPINE TAB 100 MG (SEROQUEL) MG 02/27/2017 02/27/2017 ONCE&1030 POLY/BACI/NEOMY 1APP OINT (NEOSPORIN) yolie 02/27/2017 02/27/2017 ONCE&1630 SIMVASTATIN TAB 40 MG (ZOCOR) MG 02/27/2017 03/28/2017 QPM&2000 CARVEDILOL TAB 25 MG (COREG) MG 02/27/2017 03/29/2017 BID&0800,2000 QUETIAPINE TAB 100 MG (SEROQUEL) MG 02/27/2017 03/28/2017 QHS&2100 QUETIAPINE TAB 100 MG (SEROQUEL) MG 02/28/2017 03/29/2017 QAM&0800 POLY/BACI/NEOMY 1APP OINT (NEOSPORIN) yolie 02/28/2017 03/29/2017 QAM&0800 CYANOCBALAMIN VIAL INJ 1000 MCG/CC (VIT B12 VIAL) MCG 02/28/2017 03/28/2017 Q2WK&0900 VITAMIN D-3 TAB 1000 UNITS (VITAMIN D-3) UNITS 02/28/2017 03/29/2017 Daily&0900 METFORMIN TAB 500 MG (GLUCOPHAGE) MG 02/28/2017 03/30/2017 BID&08,1999 CARVEDILOL TAB 25 MG (COREG) MG 02/28/2017 03/30/2017 BID&08,1999 CYCLOBENZAPRINE TAB 5 MG (FLEXERIL) MG 02/28/2017 03/07/2017 PRN Q8H LISINOPRIL TAB 10 MG (ZESTRIL) MG 03/01/2017 03/30/2017 Daily&0900 AMLODIPINE TAB 5 MG (NORVASC) MG 03/01/2017 03/30/2017 Daily&0900 LORAZEPAM TAB 0.5 MG (ATIVAN) MG 03/01/2017 03/08/2017 PRN Q8H LORAZEPAM TAB 0.5 MG (ATIVAN) MG 03/01/2017 03/08/2017 PRN Q8H CYCLOBENZAPRINE TAB 10 MG (FLEXERIL) MG 03/02/2017 03/09/2017 PRN Q6H IBUPROFEN TAB 800 MG (MOTRIN) MG 03/02/2017 03/09/2017 PRN Q6H LORAZEPAM TAB 2 MG (ATIVAN) MG 03/03/2017 03/03/2017 PRN ONCE LORAZEPAM TAB 2 MG (ATIVAN) MG 03/04/2017 03/04/2017 PRN ONCE LURASIDONE TAB 40 MG (LATUDA) MG 03/04/2017 04/02/2017 Daily&1700 IBUPROFEN TAB 800 MG (MOTRIN) MG 03/10/2017 03/17/2017 PRN Q6H Problems Date Dx Coded Attending Type Code Diagnosis Diagnosed By 02/26/2017 ZEFERINO REEDER 272.4 OTHER AND UNSPECIFIED HYPERLIPIDEMIA 02/26/2017 ZEFERINO REEDER 296.34 MAJOR DEPRESSIVE DISORDER, RECURRENT EPISODE, SEVERE DEGREE, SPECIFIED WITH PSYCHOTIC BEHAVIOR 02/26/2017 ZEFERINO REEDER 296.54 02/26/2017 ZEFERINO REEDER 401.9 UNSPECIFIED ESSENTIAL HYPERTENSION 02/26/2017 ZEFERINO REEDER 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 02/26/2017 ZEFERINO REEDER E78.5 HYPERLIPIDEMIA, UNSPECIFIED 02/26/2017 ZEFERINO REEDER F31.5 BIPOLAR DISORD, CRNT EPSD DEPRESS, SEVERE, W PSYCH FEATURES 02/26/2017 ZEFERINO REEDER F33.3 MAJOR DEPRESSIVE DISORDER, RECURRENT, SEVERE WITH PSYCHOTIC SYMPTOMS 02/26/2017 ZEFERINO REEDER I10 ESSENTIAL (PRIMARY) HYPERTENSION 02/26/2017 ZEFERINO REEDER V15.88 PERSONAL HISTORY OF FALL 02/26/2017 ZEFERINO REEDER Z91.81 HISTORY OF FALLING 03/10/2017 ZEFERINO REEDER 250.60 03/10/2017 ZEFERINO REEDER 346.90 03/10/2017 ZEFERINO REEDER 600.20 03/10/2017 ZEFERINO REEDER 790.4 03/10/2017 ZEFERINO REEDER E11.40 TYPE 2 DIABETES MELLITUS WITH DIABETIC NEUROPATHY, UNSP 03/10/2017 ZEFERINO REEDER G31.84 03/10/2017 ZEFERINO REEDER G43.909 03/10/2017 ZEFERINO REEDER N40.0 BENIGN PROSTATIC HYPERPLASIA WITHOUT LOWER URINRY TRACT SYMP 03/10/2017 ZEFERINO REEDER R45.851 03/10/2017 ZEFERINO REEDER R74.0 NONSPEC ELEV OF LEVELS OF TRANSAMNS T LACTIC ACID DEHYDRGNSE 12/21/2018 LISSA GUILLEN MD Ot A41.59 OTHER [...] INDEX (BMI) 35.0-35.9, ADULT 12/21/2018 LISSA GUILLEN MD, Ot Z85.828 PERSONAL HISTORY OF OTHER MALIGNANT [...] DYSFUNCTION OF BLADDER, UN 12/21/2018 LISSA GUILLEN MD, Ot N39.0 URINARY TRACT INFECTION, SITE NOT [...] WITH MEDIC 12/27/2018 LINDA SANCHEZ MD Ot Z01.8 18 ENCOUNTER FOR OTHER PREPROCEDURAL EXAMIN 12/28/2018 LINDA SANCHEZ MD Ot E11.4 0 TYPE 2 DIABETES MELLITUS WITH DIABETIC N 12/28/2018 LINDA SANCHEZ MD Ot E11.6 5 TYPE 2 DIABETES MELLITUS WITH HYPERGLYCE 12/28/2018 LINDA SANCHEZ MD Ot E66.9 OBESITY, UNSPECIFIED 12/28/2018 LINDA SANCHEZ MD Ot E78.5 HYPERLIPIDEMIA, UNSPECIFIED 12/28/2018 LINDA SANCHEZ MD Ot F32.9 MAJOR DEPRESSIVE DISORDER, SINGLE EPISOD 12/28/2018 LINDA SANCHEZ MD Ot F79 UNSPECIFIED INTELLECTUAL DISABILITIES 12/28/2018 LINDA SANCHEZ MD Ot I10 ESSENTIAL (PRIMARY) HYPERTENSION 12/28/2018 LINDA SANCHEZ MD Ot N31.9 NEUROMUSCULAR DYSFUNCTION OF BLADDER, UN 12/28/2018 LINDA SANCHEZ MD Ot N40.1 BENIGN PROSTATIC HYPERPLASIA WITH LOWER 12/28/2018 LINDA SANCHEZ MD Ot N52.9 MALE ERECTILE DYSFUNCTION, UNSPECIFIED 12/28/2018 LINDA SANCHEZ MD, Ot R33.9 RETENTION OF URINE, UNSPECIFIED 12/28/2018 LINDA SANCHEZ MD Ot Z68.3 4 BODY MASS INDEX (BMI) 34.0-34.9, ADULT 12/28/2018 LINDA SANCHEZ MD Ot Z79.8 4 LONG-TERM (CURRENT) USE OF ORAL HYPOGLYC 12/28/2018 LINDA SANCHEZ MD, Ot Z79.8 99 OTHER LONG-TERM (CURRENT) DRUG THERAPY 12/28/2018 LINDA SANCHEZ MD, Ot Z86.1 9 PERSONAL HISTORY OF OTHER INFECTIOUS AND 12/28/2018 LINDA SANCHEZ MD Ot Z87.8 91 PERSONAL HISTORY OF NICOTINE DEPENDENCE 01/04/2019 LINDA SANCHEZ MD Ot E11.4 0 TYPE 2 DIABETES MELLITUS WITH DIABETIC N 01/04/2019 LINDA SANCHEZ MD Ot E11.6 5 TYPE 2 DIABETES MELLITUS WITH HYPERGLYCE 01/04/2019 LINDA SANCHEZ MD, Ot E66.9 OBESITY, UNSPECIFIED 01/04/2019 LINDA SANCHEZ MD, Ot E78.5 HYPERLIPIDEMIA, UNSPECIFIED 01/04/2019 LINDA SANCHEZ MD, Ot F32.9 MAJOR DEPRESSIVE DISORDER, SINGLE EPISOD 01/04/2019 LINDA SANCHEZ MD Ot F79 UNSPECIFIED INTELLECTUAL DISABILITIES 01/04/2019 LINDA SANCHEZ MD Ot I10 ESSENTIAL (PRIMARY) HYPERTENSION 01/04/2019 LINDA SANCHEZ MD, Ot N31.9 NEUROMUSCULAR DYSFUNCTION OF BLADDER, UN 01/04/2019 LINDA SANCHEZ MD, Ot N40.1 BENIGN PROSTATIC HYPERPLASIA WITH LOWER 01/04/2019 LINDA SANCHEZ MD, Ot N52.9 MALE ERECTILE DYSFUNCTION, UNSPECIFIED 01/04/2019 LINDA SANCHEZ MD, Ot R33.9 RETENTION OF URINE, UNSPECIFIED 01/04/2019 LINDA SANCHEZ MD, Ot Z68.3 4 BODY MASS INDEX (BMI) 34.0-34.9, ADULT 01/04/2019 LINDA SANCHEZ MD, Ot Z79.8 4 LONG-TERM (CURRENT) USE OF ORAL HYPOGLYC 01/04/2019 LINDA SANCHEZ MD, Ot Z79.8 99 OTHER ONLINE MARKETER (CURRENT) DRUG THERAPY 01/04/2019 LINDA SANCHEZ MD, Ot Z86.1 9 PERSONAL HISTORY OF OTHER INFECTIOUS AND 01/04/2019 LINDA SANCHEZ MD, Ot Z87.8 91 PERSONAL HISTORY OF NICOTINE DEPENDENCE 03/11/2019 IDALIA REID MD Ot E11.65 TYPE 2 DIABETES MELLITUS WITH HYPERGLYCE 03/11/2019 IDALIA REID MD, Ot E78.00 PURE HYPERCHOLESTEROLEMIA, UNSPECIFIED 03/11/2019 IDALIA REID MD, Ot F32 .9 MAJOR DEPRESSIVE DISORDER, SINGLE EPISOD 03/11/2019 IDALIA REID MD, Ot F41 .9 ANXIETY DISORDER, UNSPECIFIED 03/11/2019 IDALIA REID MD Ot I10 ESSENTIAL (PRIMARY) HYPERTENSION 03/11/2019 IDALIA REID MD, Ot N17 .9 ACUTE KIDNEY FAILURE, UNSPECIFIED 03/11/2019 IDALIA REID MD, Ot N39 .0 URINARY TRACT INFECTION, SITE NOT SPECIF 03/11/2019 IDALIA REID MD Ot R07 .9 CHEST PAIN, UNSPECIFIED 03/11/2019 IDALIA REID MD Ot R53 .1 WEAKNESS 03/11/2019 IDALIA REID MD, Ot Z66 DO NOT RESUSCITATE 03/11/2019 IDALIA REID MD, Ot Z85.828 PERSONAL HISTORY OF OTHER MALIGNANT NEOP 03/11/2019 IDALIA REID MD, Ot Z87.891 PERSONAL HISTORY OF NICOTINE DEPENDENCE 03/11/2019 IDALIA REID MD, Ot Z91.19 PATIENT'S NONCOMPLIANCE W [facility] 03/11/2019 IDALIA REID MD, Ot B96.89 [facility] BACTERIAL AGENTS THE CAUSE OF DIS 03/11/2019 IDALIA REID MD, Ot E11.65 TYPE 2 DIABETES MELLITUS WITH HYPERGLYCE 03/11/2019 IDALIA REID MD, Ot E78.00 PURE HYPERCHOLESTEROLEMIA, UNSPECIFIED 03/11/2019 IDALIA REID MD, Ot F32 .9 MAJOR DEPRESSIVE DISORDER, SINGLE EPISOD 03/11/2019 IDALIA REID MD, Ot F41 .9 ANXIETY DISORDER, UNSPECIFIED 03/11/2019 IDALIA REID MD, Ot I10 ESSENTIAL (PRIMARY) HYPERTENSION 03/11/2019 IDALIA REID MD, Ot N17 .9 ACUTE KIDNEY FAILURE, UNSPECIFIED 03/11/2019 IDALIA REID MD, Ot N39 .0 URINARY TRACT INFECTION, SITE NOT SPECIF 03/11/2019 IDALIA REID MD, Ot R07 .9 CHEST PAIN, UNSPECIFIED 03/11/2019 IDALIA REID MD, Ot R32 UNSPECIFIED URINARY INCONTINENCE 03/11/2019 IDALIA REID MD, Ot R53 .1 WEAKNESS 03/11/2019 IDALIA REID MD, Ot Z66 DO NOT RESUSCITATE 03/11/2019 IDALIA REID MD, Ot Z79 .4 LONG-TERM (CURRENT) USE OF INSULIN 03/11/2019 IDALIA REID MD, Ot Z85.828 PERSONAL HISTORY OF OTHER MALIGNANT NEOP 03/11/2019 IDALIA REID MD, Ot Z87.891 PERSONAL HISTORY OF NICOTINE DEPENDENCE 03/11/2019 IDALIA REID MD, Ot Z91.19 PATIENT'S NONCOMPLIANCE W [facility] 06/08/2019 TALA FRY MD, Ot I10 ESSENTIAL (PRIMARY) HYPERTENSION 06/08/2019 TALA FRY MD, Ot N32.89 OTHER SPECIFIED DISORDERS OF BLADDER 06/08/2019 TALA FRY MD Ot N45.1 EPIDIDYMITIS 06/08/2019 TALA FRY MD, Ot N50.89 OTHER SPECIFIED DISORDERS OF THE MALE GE 06/28/2019 SELF TALA DE ANDA Ot I10 ESSENTIAL (PRIMARY) HYPERTENSION 06/28/2019 SELF TALA DE ANDA Ot I10 ESSENTIAL (PRIMARY) HYPERTENSION 06/28/2019 SELF TALA DE ANDA Ot N32.89 OTHER SPECIFIED DISORDERS OF BLADDER 06/28/2019 SELF TALA DE ANDA Ot N45.1 EPIDIDYMITIS 06/28/2019 SELF TALA DE ANDA Ot N50.89 OTHER SPECIFIED DISORDERS OF THE MALE GE 11/15/2019 LINDA SANCHEZ MD Ot Z01.8 18 ENCOUNTER FOR OTHER PREPROCEDURAL EXAMIN 11/15/2019 SELF TALA DE ANDA Ot I10 ESSENTIAL (PRIMARY) HYPERTENSION 11/15/2019 SELF TALA DE ANDA Ot N32.89 OTHER SPECIFIED DISORDERS OF BLADDER 11/15/2019 SELF TALA DE ANDA Ot N45.1 EPIDIDYMITIS 11/15/2019 SELF TALA DE ANDA Ot N50.89 OTHER SPECIFIED DISORDERS OF THE MALE GE 11/15/2019 SELF TALA DE ANDA Ot I10 ESSENTIAL (PRIMARY) HYPERTENSION 11/16/2019 LINDA SANCHEZ MD A Ot Z01.8 18 ENCOUNTER FOR OTHER PREPROCEDURAL EXAMIN 11/16/2019 SELF TALA DE ANDA Ot I10 ESSENTIAL (PRIMARY) HYPERTENSION 11/16/2019 SELF TALA DE ANDA Ot N32.89 OTHER SPECIFIED DISORDERS OF BLADDER 11/16/2019 SELF TALA DE ANDA Ot N45.1 EPIDIDYMITIS 11/16/2019 SELF TALA DE ANDA Ot N50.89 OTHER SPECIFIED DISORDERS OF THE MALE GE 11/16/2019 SELF TALA DE ANDA Ot I10 ESSENTIAL (PRIMARY) HYPERTENSION 11/16/2019 CLEMENTE JO APRN Ot M47.816 SPONDYLOSIS W/O MYELOPATHY OR RADICULOPA 11/17/2019 LINDA SANCHEZ MD Ot Z01.8 18 ENCOUNTER FOR OTHER PREPROCEDURAL EXAMIN 11/17/2019 SELF TALA DE ANDA Ot I10 ESSENTIAL (PRIMARY) HYPERTENSION 11/17/2019 SELF TALA DE ANDA Ot N32.89 OTHER SPECIFIED DISORDERS OF BLADDER 11/17/2019 SELF TALA DE ANDA Ot N45.1 EPIDIDYMITIS 11/17/2019 SELF TALA DE ANDA Ot N50.89 OTHER SPECIFIED DISORDERS OF THE MALE GE 11/17/2019 SELF TALA DE ANDA Ot I10 ESSENTIAL (PRIMARY) HYPERTENSION 11/17/2019 CLEMENTE JO APRN Ot M47.816 SPONDYLOSIS W/O MYELOPATHY OR RADICULOPA 12/11/2019 CLEMENTE JO SHAYAN Ot M47.816 SPONDYLOSIS W/O MYELOPATHY OR RADICULOPA Procedures There is no data. Results Test Result Range Folate - 02/26/17 16:12 Folate 18.60 ng/mL 7.00-31.40 VIT B-12 - 02/26/17 16:13 Vitamin B12 211.00 pg/mL 213.00-816.00 Rapid Drug Screen,Medical - 02/26/17 17: 50 Amphetamine NEGATIVE NEGATIVE Barbiturates NEGATIVE NEGATIVE Benzodiazepines POSITIVE NEGATIVE Cocaine NEGATIVE NEGATIVE Marijuana NEGATIVE NEGATIVE Methylenedioxymethamphetamine NEGATIVE NEGATIVE Opiates NEGATIVE NEGATIVE Oxycodone NEGATIVE NEGATIVE Phencyclidine POSITIVE NEGATIVE Propoxyphene NEGATIVE NEGATIVE Tricyclic Antidepressant POSITIVE NEGAT MELANIE Lipid Panel - 02/27/17 05:28 C/HDL 4.5 3.7-6.7 Cholesterol 140 mg/dL 100-240 HDL 31 mg/dL 30-85 LDL-Calculated 83 mg/dL 0-100 Trig 132 mg/dL 35-160 VLDL 26 mg/dL 0-42 LIPID PANEL - 11/30/18 11:00 CHOLESTEROL, TOTAL 175 mg/dL <200 HDL CHOLESTEROL 44 mg/dL >40 TRIGLYCERIDES 362 mg/dL <150 LDL-CHOLESTEROL 83 mg/dL (calc) NRG CHOL/HDLC RATIO 4.0 (calc) <5.0 NON HDL CHOLESTEROL 131 mg/dL (calc) <13 0 Complete blood count (CBC) with automate d white blood cell (WBC) differential - 12/17/18 15:43 Blood leukocytes automated count (number/volume) 7.9 10*3/uL 4.3-11.0 Blood erythrocytes automated count (number/volume) 5.14 10*6/uL 4.35-5.85 Venous blood hemoglobin measurement (mass/volume) 14.5 g/dL 13.3-17.7 Blood hematocrit (volume fraction) 45 % 40-54 Automated erythrocyte mean corpuscular volume 87 [ foz_us] 80-99 Automated erythrocyte mean corpuscular h emoglobin (mass per erythrocyte) 28 pg 25-34 Automated erythrocyte mean corpuscular h emoglobin concentration measurement (mass/volume) 32 g/dL 32-36 Automated erythrocyte distribution width ratio 12. 6 % 10.0- 14.5 Automated blood platelet count [...] 10*3 1.0-4.0 Blood monocytes automated count (number/volume) 0. 7 10*3 0.0-1.0 Automated eosinophil count 0.0 10*3/uL 0 .0-0.3 Automated blood basophil count (count/volume) 0.0 10*3/uL 0.0-0.1 Blood manual differential performed dete ction - 12/17/18 15:43 Blood monocytes/100 leukocytes 3 % NRG Manual blood segmented neutrophils/100 leukocytes 78 % NRG Blood band neutrophils/100 leukocytes 15 % NRG Manual blood lymphocytes/100 leukocytes 3 % NRG Manual eosinophils/100 leukocytes in nose 0 % NRG Manual blood basophils/100 leukocytes 0 % NRG Manual blood metamyelocytes/100 leukocytes 1 % NRG PT panel in platelet poor plasma by coag ulation assay - 12/17/18 15:43 Prothrombin time (PT) in platelet poor plasma by coagu lation assay 13.9 s 12.2-14.7 INR in platelet poor plasma or blood by coagulation as say 1.0 0.8-1.4 Activated partial thromboplastin time (a PTT) in platelet poor plasma bycoagulation assay - 12/17/18 15:43 Activated partial thromboplastin time (a PTT) in platelet poor plasma bycoagulation assay 27 s 24-35 Fibrin D-dimer FEU measurement in platel et poor plasma (mass/volume) - 12/17/18 15:43 Fibrin [...] 5-14 Serum or plasma urea nitrogen measurement (mass/volume ) 15 mg/dL 7-18 Serum or plasma creatinine measurement (mass/volume) 0.92 mg/dL 0.60-1.30 Serum or plasma urea nitrogen/creatinine mass ratio 16 NRG Serum or plasma creatinine measurement w ith calculation of estimated glomerular filtration rate > NRG Serum or plasma glucose measurement (mass/volume) 420 mg/dL 70-105 Serum or plasma calcium measurement (mass/volume) 9.4 mg/dL 8.5-10.1 Serum or plasma total bilirubin measurement (mass/volu me) 0.9 mg/dL 0.1-1.0 Serum or plasma alkaline phosphatase césar surement (enzymatic activity/volume) 138 U/L 40-136 Serum or plasma aspartate aminotransfera se measurement (enzymatic activity/volume) 27 U/L 5-34 Serum or plasma alanine aminotransferase measurement (enzymatic activity/volume) 42 U/L 0-55 Serum or plasma protein measurement (mass/volume) 8.2 g/dL 6.4-8.2 Serum or plasma albumin measurement (mass/volume) 4.3 g/dL 3.2-4.5 CALCIUM CORRECTED 9.2 mg/dL 8.5-10.1 Magnesium - 12/17/18 15:43 Magnesium 1.8 mg/dL 1.8-2.4 TROPONIN T - 12/17/18 15:43 TROPONIN T 10 % <=15 Blood lactic acid measurement (moles/vol ume) - 12/17/18 15:43 Blood lactic acid measurement (moles/volume) 1.38 mmol/L 0.50-2.00 PROBNP FS - 12/17/18 15:43 PROBNP FS 455.4 pg/mL <75.0 Lipase - 12/17/18 15:43 Lipase 12 U/L 8-78 Bacterial blood culture - 12/17/18 15:43 FREE TEXT EXTERNAL PROBABLE ENTEROBACTER AEROGENES [facility] QUANTITY OF GROWTH Isolated [facility] Bacterial blood culture [id number] [facility] FREE TEXT ENTRY 2 REFER TO CULTURE [id number] FOR SENSI TIVITY NRG Bacterial blood culture - 12/17/18 15:49 FREE TEXT EXTERNAL RML REPORTED ID 12/19 12:05 NRG QUANTITY OF GROWTH Isolated NRG Bacterial blood culture [id number] NR FREE TEXT ENTRY 2 RML REPORTED SUSCEPTIBILITY 12/20 09:05 NRG RML SENSITIVITY [facility] - 12/17/18 15:4 9 Gentamicin susceptibility test by minimum inhibitory c oncentration <= NRG Trimethoprim/sulfamethoxazole susceptibi lity test by minimum inhibitoryconcentration S NRG Levofloxacin susceptibility test by minimum inhibitory concentration <= NRG Cefazolin susceptibility test by minimum inhibitory co ncentration > NRG Ceftriaxone susceptibility test by minimum inhibitory concentration <= NRG Piperacillin/tazobactam susceptibility t est by minimum inhibitory concentration = NRG Ciprofloxacin susceptibility test by minimum inhibitor y concentration <= NRG Meropenem susceptibility test by minimum inhibitory co ncentration <= NRG Amoxicillin and clavulanate potassium susc DORIAN > NRG Complete urinalysis with reflex to cultu re - 12/17/18 16:00 Urine color determination YELLOW NRG Urine clarity determination CLEAR NR G Urine pH measurement by test strip 5.5 5-9 Specific gravity of urine by test strip 1.020 1.016-1.022 Urine protein assay by test strip, semi-quantitative 1+ NEGATIVE Urine glucose detection by automated test strip 2+ NEGATIVE Erythrocytes detection in urine sediment by light micr oscopy 2+ NEGATIVE Urine ketones detection by automated test strip 3+ NEGATIVE Urine nitrite detection by test strip POSITIVE NEGATIVE Urine total bilirubin detection by test strip NEGA TIVE NEGATIVE Urine urobilinogen measurement by automated test strip (mass/volume) 0.2 mg/dL NORMAL Urine leukocyte esterase detection by dipstick 1+ NEGATIVE Automated urine sediment erythrocyte cou nt by microscopy (number/high power field) [HPF] NRG Automated urine sediment leukocyte count by microscopy (number/high power field) [HPF] NRG Bacteria detection in urine sediment by light microsco py FEW NRG Crystals detection in urine sediment by light microsco py NONE NRG Casts detection in urine sediment by light microscopy NONE NRG Mucus detection in urine sediment by light microscopy NEGATIVE NRG Complete urinalysis with reflex to culture YES NRG Bacterial urine culture - 12/17/18 16:00 Bacterial urine culture [id number] NRG COLONY COUNT >100,000/ML NRG FTX;REPORTABLE SUSCEPTIBILITY REPORTED 5-6-19, 140 5. NRG RML Sensitivity Panel - 12/17/18 16:00 Gentamicin susceptibility test by minimum inhibitory c oncentration <= NRG Trimethoprim/sulfamethoxazole susceptibi lity test by minimum inhibitoryconcentration <= NRG Levofloxacin susceptibility test by minimum inhibitory concentration <= NRG Ampicillin susceptibility test by minimum inhibitory c oncentration > NRG Cefazolin susceptibility test by minimum inhibitory co ncentration > NRG Ceftriaxone susceptibility test by minimum inhibitory concentration <= NRG Ciprofloxacin susceptibility test by minimum inhibitor y concentration <= NRG Meropenem susceptibility test by minimum inhibitory co ncentration <= NRG Nitrofurantoin susceptibility test by mi nimum inhibitory concentration > NRG Amoxicillin and clavulanate potassium susc DORIAN > NRG Arterial blood gas measurement - 9 16:50 Blood pCO2 22 mm[Hg] 35-45 Blood pO2 72 mm[Hg] 79-93 Arterial blood bicarbonate measurement (moles/volume) 11 mmol/L 23-27 Arterial blood base excess by calculation -13.7 mm ol/L -2.5-2.5 Arterial blood oxygen saturation measurement 92 % 94-100 * Inhaled oxygen flow rate ROOM AIR NRG Arterial blood pH measurement with patient temperature correction 7.30 7.37-7.43 Arterial blood carbon dioxide, total measurement (mole s/volume) 11.5 mmol/L 21.0-31.0 Body site RT WRIST NRG Assessment of wrist artery patency prior to arterial p uncture OK NRG Setting of ventilation mode NO NR G Measurement of body temperature 101.5 NRG Capillary blood glucose measurement by g lucometer (mass/volume) - 12/17/18 18:33 Capillary blood glucose measurement by glucometer (mas s/volume) 275 mg/dL 70-110 Whole blood basic metabolic panel - 12/02 19:12 Serum or plasma sodium measurement (moles/volume) 132 mmol/L 135-145 Serum or plasma potassium measurement (moles/volume) 3.7 mmol/L 3.6-5.0 Serum or plasma chloride measurement (moles/volume) 100 mmol/L 98-107 Carbon dioxide 14 mmol/L 21-32 Serum or plasma anion gap determination (moles/volume) 18 mmol/L 5-14 Serum or plasma urea nitrogen measurement (mass/volume ) 13 mg/dL 7-18 Serum or plasma creatinine measurement (mass/volume) 1.25 mg/dL 0.60-1.30 Serum or plasma urea nitrogen/creatinine mass ratio 10 NRG Serum or plasma creatinine measurement w ith calculation of estimated glomerular filtration rate 58 NRG Serum or plasma glucose measurement (mass/volume) 255 mg/dL 70-105 Serum or plasma calcium measurement (mass/volume) 8.6 mg/dL 8.5-10.1 Capillary blood glucose measurement by g lucometer (mass/volume) - 12/17/18 19:31 Capillary blood glucose measurement by glucometer (mas s/volume) 293 mg/dL 70-110 Capillary blood glucose measurement by g lucometer (mass/volume) - 12/17/18 20:53 Capillary blood glucose measurement by glucometer (mas s/volume) 240 mg/dL 70-110 Whole blood basic metabolic panel - 12/02 21:40 Serum or plasma sodium measurement (moles/volume) 131 mmol/L 135-145 Serum or plasma potassium measurement (moles/volume) 3.9 mmol/L 3.6-5.0 Serum or plasma chloride measurement (moles/volume) 100 mmol/L 98-107 Carbon dioxide 16 mmol/L 21-32 Serum or plasma anion gap determination (moles/volume) 15 mmol/L 5-14 Serum or plasma urea nitrogen measurement (mass/volume ) 12 mg/dL 7-18 Serum or plasma creatinine measurement (mass/volume) 1.16 mg/dL 0.60-1.30 Serum or plasma urea nitrogen/creatinine mass ratio 10 NRG Serum or plasma creatinine measurement w ith calculation of estimated glomerular filtration rate > NRG Serum or plasma glucose measurement (mass/volume) 287 mg/dL 70-105 Serum or plasma calcium measurement (mass/volume) 8.5 mg/dL 8.5-10.1 Capillary blood glucose measurement by g lucometer (mass/volume) - 12/17/18 22:04 Capillary blood glucose measurement by glucometer (mas s/volume) 261 mg/dL 70-110 Capillary blood glucose measurement by g lucometer (mass/volume) - 12/17/18 22:59 Capillary blood glucose measurement by glucometer (mas s/volume) 327 mg/dL 70-110 Capillary blood glucose measurement by g lucometer (mass/volume) - 12/17/18 23:58 Capillary blood glucose measurement by glucometer (mas s/volume) 312 mg/dL 70-110 Capillary blood glucose measurement by g lucometer (mass/volume) - 12/18/18 01:04 Capillary blood glucose measurement by glucometer (mas s/volume) 263 mg/dL 70-110 Complete blood count (CBC) with automate d white blood cell (WBC) differential - 12/18/18 01:30 Blood leukocytes automated count (number/volume) 6.9 10*3/uL 4.3-11.0 Blood erythrocytes automated count (number/volume) 4.01 10*6/uL 4.35-5.85 Venous blood hemoglobin measurement (mass/volume) 11.2 g/dL 13.3-17.7 Blood hematocrit (volume fraction) 34 % 40-54 Automated erythrocyte mean corpuscular volume 84 [ foz_us] 80-99 Automated erythrocyte mean corpuscular h emoglobin (mass per erythrocyte) 28 pg 25-34 Automated erythrocyte mean corpuscular h emoglobin concentration measurement (mass/volume) 33 g/dL 32-36 Automated erythrocyte distribution width ratio 13. 0 % 10.0- 14.5 Automated blood platelet count [...] 10*3 1.0-4.0 Blood monocytes automated count (number/volume) 0. 4 10*3 0.0-1.0 Automated eosinophil count 0.0 10*3/uL 0 .0-0.3 Automated blood basophil count (count/volume) 0.0 10*3/uL 0.0-0.1 Comprehensive metabolic panel - 12/18/18 01:30 Serum or plasma sodium measurement (moles/volume) 128 mmol/L 135-145 Serum or plasma potassium measurement (moles/volume) 3.7 mmol/L 3.6-5.0 Serum or plasma chloride measurement (moles/volume) 101 mmol/L 98-107 Carbon dioxide 17 mmol/L 21-32 Serum or plasma anion gap determination (moles/volume) 10 mmol/L 5-14 Serum or plasma urea nitrogen measurement (mass/volume ) 14 mg/dL 7-18 Serum or plasma creatinine measurement (mass/volume) 1.08 mg/dL 0.60-1.30 Serum or plasma urea nitrogen/creatinine mass ratio 13 NRG Serum or plasma creatinine measurement w ith calculation of estimated glomerular filtration rate > NRG Serum or plasma glucose measurement (mass/volume) 235 mg/dL 70-105 Serum or plasma calcium measurement (mass/volume) 8.0 mg/dL 8.5-10.1 Serum or plasma total bilirubin measurement (mass/volu me) 0.7 mg/dL 0.1-1.0 Serum or plasma alkaline phosphatase césar surement (enzymatic activity/volume) 86 U/L 40-136 Serum or plasma aspartate aminotransfera se measurement (enzymatic activity/volume) 21 U/L 5-34 Serum or plasma alanine aminotransferase measurement (enzymatic activity/volume) 32 U/L 0-55 Serum or plasma protein measurement (mass/volume) 5.9 g/dL 6.4-8.2 Serum or plasma albumin measurement (mass/volume) 3.3 g/dL 3.2-4.5 CALCIUM CORRECTED 8.6 mg/dL 8.5-10.1 Magnesium - 12/18/18 01:30 Magnesium 1.5 mg/dL 1.8-2.4 Capillary blood glucose measurement by g lucometer (mass/volume) - 12/18/18 03:55 Capillary blood glucose measurement by glucometer (mas s/volume) 322 mg/dL 70-110 Capillary blood glucose measurement by g lucometer (mass/volume) - 12/18/18 05:03 Capillary blood glucose measurement by glucometer (mas s/volume) 198 mg/dL 70-110 Capillary blood glucose measurement by g lucometer (mass/volume) - 12/18/18 06:08 Capillary blood glucose measurement by glucometer (mas s/volume) 212 mg/dL 70-110 Capillary blood glucose measurement by g lucometer (mass/volume) - 12/18/18 07:18 Capillary blood glucose measurement by glucometer (mas s/volume) 250 mg/dL 70-110 Capillary blood glucose measurement by g lucometer (mass/volume) - 12/18/18 08:13 Capillary blood glucose measurement by glucometer (mas s/volume) 247 mg/dL 70-110 Whole blood basic metabolic panel - 01/01 09:10 Serum or plasma sodium measurement (moles/volume) 127 mmol/L 135-145 Serum or plasma potassium measurement (moles/volume) 3.5 mmol/L 3.6-5.0 Serum or plasma chloride measurement (moles/volume) 103 mmol/L 98-107 Carbon dioxide 14 mmol/L 21-32 Serum or plasma anion gap determination (moles/volume) 10 mmol/L 5-14 Serum or plasma urea nitrogen measurement (mass/volume ) 9 mg/dL 7-18 Serum or plasma creatinine measurement (mass/volume) 0.82 mg/dL 0.60-1.30 Serum or plasma urea nitrogen/creatinine mass ratio 11 NRG Serum or plasma creatinine measurement w ith calculation of estimated glomerular filtration rate > NRG Serum or plasma glucose measurement (mass/volume) 223 mg/dL 70-105 Serum or plasma calcium measurement (mass/volume) 7.9 mg/dL 8.5-10.1 Capillary blood glucose measurement by g lucometer (mass/volume) - 12/18/18 09:32 Capillary blood glucose measurement by glucometer (mas s/volume) 223 mg/dL 70-110 Capillary blood glucose measurement by g lucometer (mass/volume) - 12/18/18 10:23 Capillary blood glucose measurement by glucometer (mas s/volume) 245 mg/dL 70-110 Capillary blood glucose measurement by g lucometer (mass/volume) - 12/18/18 11:33 Capillary blood glucose measurement by glucometer (mas s/volume) 174 mg/dL 70-110 Capillary blood glucose measurement by g lucometer (mass/volume) - 12/18/18 13:00 Capillary blood glucose measurement by glucometer (mas s/volume) 105 mg/dL 70-110 Capillary blood glucose measurement by g lucometer (mass/volume) - 12/18/18 13:34 Capillary blood glucose measurement by glucometer (mas s/volume) 110 mg/dL 70-110 Whole blood basic metabolic panel - 01/01 14:19 Serum or plasma sodium measurement (moles/volume) 134 mmol/L 135-145 Serum or plasma potassium measurement (moles/volume) 4.1 mmol/L 3.6-5.0 Serum or plasma chloride measurement (moles/volume) 106 mmol/L 98-107 Carbon dioxide 17 mmol/L 21-32 Serum or plasma anion gap determination (moles/volume) 11 mmol/L 5-14 Serum or plasma urea nitrogen measurement (mass/volume ) 10 mg/dL 7-18 Serum or plasma creatinine measurement (mass/volume) 0.81 mg/dL 0.60-1.30 Serum or plasma urea nitrogen/creatinine mass ratio 12 NRG Serum or plasma creatinine measurement w ith calculation of estimated glomerular filtration rate > NRG Serum or plasma glucose measurement (mass/volume) 122 mg/dL 70-105 Serum or plasma calcium measurement (mass/volume) 8.5 mg/dL 8.5-10.1 Capillary blood glucose measurement by g lucometer (mass/volume) - 12/18/18 16:07 Capillary blood glucose measurement by glucometer (mas s/volume) 172 mg/dL 70-110 Capillary blood glucose measurement by g lucometer (mass/volume) - 12/18/18 17:06 Capillary blood glucose measurement by glucometer (mas s/volume) 192 mg/dL 70-110 Whole blood basic metabolic panel - 01/01 17:18 Serum or plasma sodium measurement (moles/volume) 131 mmol/L 135-145 Serum or plasma potassium measurement (moles/volume) 4.3 mmol/L 3.6-5.0 Serum or plasma chloride measurement (moles/volume) 103 mmol/L 98-107 Carbon dioxide 18 mmol/L -32 Serum or plasma anion gap determination (moles/volume) 10 mmol/L 5-14 Serum or plasma urea nitrogen measurement (mass/volume ) 11 mg/dL 7-18 Serum or plasma creatinine measurement (mass/volume) 0.82 mg/dL 0.60-1.30 Serum or plasma urea nitrogen/creatinine mass ratio 13 NRG Serum or plasma creatinine measurement w ith calculation of estimated glomerular filtration rate > NRG Serum or plasma glucose measurement (mass/volume) 194 mg/dL 70-105 Serum or plasma calcium measurement (mass/volume) 8.4 mg/dL 8.5-10.1 Capillary blood glucose measurement by g lucometer (mass/volume) - 12/18/18 18:15 Capillary blood glucose measurement by glucometer (mas s/volume) 210 mg/dL 70-110 Capillary blood glucose measurement by g lucometer (mass/volume) - 12/18/18 21:16 Capillary blood glucose measurement by glucometer (mas s/volume) 266 mg/dL 70-110 Magnesium - 12/19/18 03:10 Magnesium 1.8 mg/dL 1.8-2.4 Complete blood count (CBC) with automate d white blood cell (WBC) differential - 12/19/18 03:10 Blood leukocytes automated count (number/volume) 5.6 10*3/uL 4.3-11.0 Blood erythrocytes automated count (number/volume) 4.04 10*6/uL 4.35-5.85 Venous blood hemoglobin measurement (mass/volume) 11.3 g/dL 13.3-17.7 Blood hematocrit (volume fraction) 34 % 40-54 Automated erythrocyte mean corpuscular volume 84 [ foz_us] 80-99 Automated erythrocyte mean corpuscular h emoglobin (mass per erythrocyte) 28 pg 25-34 Automated erythrocyte mean corpuscular h emoglobin concentration measurement (mass/volume) 33 g/dL 32-36 Automated erythrocyte distribution width ratio 12. 8 % 10.0- 14.5 Automated blood platelet count (count/volume) 82 1 0*3/uL 130-400 Automated blood platelet mean volume measurement 11.6 [...] 10*3 1.0-4.0 Blood monocytes automated count (number/volume) 0. 9 10*3 0.0-1.0 Automated eosinophil count 0.0 10*3/uL 0 .0-0.3 Automated blood basophil count (count/volume) 0.0 10*3/uL 0.0-0.1 Whole blood basic metabolic panel - 02/01 03:10 Serum or plasma sodium measurement (moles/volume) 134 mmol/L 135-145 Serum or plasma potassium measurement (moles/volume) 3.7 mmol/L 3.6-5.0 Serum or plasma chloride measurement (moles/volume) 106 mmol/L 98-107 Carbon dioxide 17 mmol/L 21-32 Serum or plasma anion gap determination (moles/volume) 11 mmol/L 5-14 Serum or plasma urea nitrogen measurement (mass/volume ) 8 mg/dL 7-18 Serum or plasma creatinine measurement (mass/volume) 0.74 mg/dL 0.60-1.30 Serum or plasma urea nitrogen/creatinine mass ratio 11 NRG Serum or plasma creatinine measurement w ith calculation of estimated glomerular filtration rate > NRG Serum or plasma glucose measurement (mass/volume) 200 mg/dL 70-105 Serum or plasma calcium measurement (mass/volume) 8.3 mg/dL 8.5-10.1 Capillary blood glucose measurement by g lucometer (mass/volume) - 12/19/18 11:35 Capillary blood glucose measurement by glucometer (mas s/volume) 334 mg/dL 70-110 Capillary blood glucose measurement by g lucometer (mass/volume) - 12/19/18 16:13 Capillary blood glucose measurement by glucometer (mas s/volume) 284 mg/dL 70-110 Capillary blood glucose measurement by g lucometer (mass/volume) - 12/19/18 20:23 Capillary blood glucose measurement by glucometer (mas s/volume) 216 mg/dL 70-110 Capillary blood glucose measurement by g lucometer (mass/volume) - 12/20/18 06:15 Capillary blood glucose measurement by glucometer (mas s/volume) 180 mg/dL 70-110 Capillary blood glucose measurement by g lucometer (mass/volume) - 12/20/18 11:39 Capillary blood glucose measurement by glucometer (mas s/volume) 314 mg/dL 70-110 Capillary blood glucose measurement by g lucometer (mass/volume) - 12/20/18 16:02 Capillary blood glucose measurement by glucometer (mas s/volume) 218 mg/dL 70-110 Capillary blood glucose measurement by g lucometer (mass/volume) - 12/20/18 20:39 Capillary blood glucose measurement by glucometer (mas s/volume) 199 mg/dL 70-110 Capillary blood glucose measurement by g lucometer (mass/volume) - 12/21/18 06:07 Capillary blood glucose measurement by glucometer (mas s/volume) 220 mg/dL 70-110 Capillary blood glucose measurement by g lucometer (mass/volume) - 12/21/18 11:31 Capillary blood glucose measurement by glucometer (mas s/volume) 309 mg/dL 70-110 Methicillin resistant Staphylococcus aur eus (MRSA) screening culture - 12/27/18 06:20 Methicillin resistant Staphylococcus aureus (MRSA) scr eening culture NEG NRG Automated blood complete blood count (he mogram) panel - 12/27/18 06:45 Blood leukocytes automated count (number/volume) 11.0 10*3/uL 4.3-11.0 Blood erythrocytes automated count (number/volume) 4.28 10*6/uL 4.35-5.85 Venous blood hemoglobin measurement (mass/volume) 11.9 g/dL 13.3-17.7 Blood hematocrit (volume fraction) 37 % 40-54 Automated erythrocyte mean corpuscular volume 86 [ foz_us] 80-99 Automated erythrocyte mean corpuscular h emoglobin (mass per erythrocyte) 28 pg 25-34 Automated erythrocyte mean corpuscular h emoglobin concentration measurement (mass/volume) 32 g/dL 32-36 Automated erythrocyte distribution width ratio 12. 7 % 10.0- 14.5 Automated blood platelet count (count/volume) 247 10*3/uL 130-400 Automated blood platelet mean volume measurement 10.5 [foz_us] 7.4-10.4 Whole blood basic metabolic panel - 12/14 12/02 06:45 Serum or plasma sodium measurement (moles/volume) 135 mmol/L 135-145 Serum or plasma potassium measurement (moles/volume) 4.4 mmol/L 3.6-5.0 Serum or plasma chloride measurement (moles/volume) 99 mmol/L 98-107 Carbon dioxide 22 mmol/L 21-32 Serum or plasma anion gap determination (moles/volume) 14 mmol/L 5-14 Serum or plasma urea nitrogen measurement (mass/volume ) 16 mg/dL 7-18 Serum or plasma creatinine measurement (mass/volume) 1.18 mg/dL 0.60-1.30 Serum or plasma urea nitrogen/creatinine mass ratio 14 NRG Serum or plasma creatinine measurement w ith calculation of estimated glomerular filtration rate > NRG Serum or plasma glucose measurement (mass/volume) 460 mg/dL 70-105 Serum or plasma calcium measurement (mass/volume) 9.4 mg/dL 8.5-10.1 Blood type T Indirect antibody screen ana luisa petra - 12/27/18 06:45 ABO+Rh group ON NRG Transfusion band number [id number] NRG Blood group antibody screen NEGATIVE NR G Capillary blood glucose measurement by g lucometer (mass/volume) - 12/27/18 06:56 Capillary blood glucose measurement by glucometer (mas s/volume) 400 mg/dL 70-110 Capillary blood glucose measurement by g lucometer (mass/volume) - 12/27/18 07:54 Capillary blood glucose measurement by glucometer (mas s/volume) 355 mg/dL 70-110 Capillary blood glucose measurement by g lucometer (mass/volume) - 12/27/18 09:09 Capillary blood glucose measurement by glucometer (mas s/volume) 330 mg/dL 70-110 Capillary blood glucose measurement by g lucometer (mass/volume) - 12/27/18 16:01 Capillary blood glucose measurement by glucometer (mas s/volume) 398 mg/dL 70-110 Capillary blood glucose measurement by g lucometer (mass/volume) - 12/27/18 19:34 Capillary blood glucose measurement by glucometer (mas s/volume) 300 mg/dL 70-110 Capillary blood glucose measurement by g lucometer (mass/volume) - 12/28/18 05:28 Capillary blood glucose measurement by glucometer (mas s/volume) 335 mg/dL 70-110 Complete blood count (CBC) with automate d white blood cell (WBC) differential - 12/28/18 09:25 Blood leukocytes automated count (number/volume) 12.7 10*3/uL 4.3-11.0 Blood erythrocytes automated count (number/volume) 4.35 10*6/uL 4.35-5.85 Venous blood hemoglobin measurement (mass/volume) 12.0 g/dL 13.3-17.7 Blood hematocrit (volume fraction) 38 % 40-54 Automated erythrocyte mean corpuscular volume 86 [ foz_us] 80-99 Automated erythrocyte mean corpuscular h emoglobin (mass per erythrocyte) 28 pg 25-34 Automated erythrocyte mean corpuscular h emoglobin concentration measurement (mass/volume) 32 g/dL 32-36 Automated erythrocyte distribution width ratio 12. 9 % 10.0- 14.5 Automated blood platelet count [...] 10*3 1.0-4.0 Blood monocytes automated count (number/volume) 0. 8 10*3 0.0-1.0 Automated eosinophil count 0.1 10*3/uL 0 .0-0.3 Automated blood basophil count (count/volume) 0.0 10*3/uL 0.0-0.1 Comprehensive metabolic panel - 12/28/18 09:25 Serum or plasma sodium measurement (moles/volume) 131 mmol/L 135-145 Serum or plasma potassium measurement (moles/volume) 4.3 mmol/L 3.6-5.0 Serum or plasma chloride measurement (moles/volume) 98 mmol/L 98-107 Carbon dioxide 21 mmol/L 21-32 Serum or plasma anion gap determination (moles/volume) 12 mmol/L 5-14 Serum or plasma urea nitrogen measurement (mass/volume ) 10 mg/dL 7-18 Serum or plasma creatinine measurement (mass/volume) 0.79 mg/dL 0.60-1.30 Serum or plasma urea nitrogen/creatinine mass ratio 13 NRG Serum or plasma creatinine measurement w ith calculation of estimated glomerular filtration rate > NRG Serum or plasma glucose measurement (mass/volume) 269 mg/dL 70-105 Serum or plasma calcium measurement (mass/volume) 9.5 mg/dL 8.5-10.1 Serum or plasma total bilirubin measurement (mass/volu me) 0.5 mg/dL 0.1-1.0 Serum or plasma alkaline phosphatase césar surement (enzymatic activity/volume) 229 U/L 40-136 Serum or plasma aspartate aminotransfera se measurement (enzymatic activity/volume) 15 U/L 5-34 Serum or plasma alanine aminotransferase measurement (enzymatic activity/volume) 33 U/L 0-55 Serum or plasma protein measurement (mass/volume) 7.4 g/dL 6.4-8.2 Serum or plasma albumin measurement (mass/volume) 3.6 g/dL 3.2-4.5 CALCIUM CORRECTED 9.8 mg/dL 8.5-10.1 Capillary blood glucose measurement by g lucometer (mass/volume) - 12/28/18 11:12 Capillary blood glucose measurement by glucometer (mas s/volume) 439 mg/dL 70-110 Complete urinalysis with reflex to cultu re - 03/08/19 10:10 Urine color determination YELLOW NRG Urine clarity determination VERY CLOUDY NRG Urine pH measurement by test strip 6 5-9 Specific gravity of urine by test strip 1.015 1.016-1.022 Urine protein assay by test strip, semi-quantitative 1+ NEGATIVE Urine glucose detection by automated test strip 4+ NEGATIVE Erythrocytes detection in urine sediment by light micr oscopy 3+ NEGATIVE Urine ketones detection by automated test strip 3+ NEGATIVE Urine nitrite detection by test strip NEGATIVE NEGATIVE Urine total bilirubin detection by test strip NEGA TIVE NEGATIVE Urine urobilinogen measurement by automated test strip (mass/volume) NORMAL NORMAL Urine leukocyte esterase detection by dipstick 2+ NEGATIVE Automated urine sediment erythrocyte cou nt by microscopy (number/high power field) [HPF] NRG Automated urine sediment leukocyte count by microscopy (number/high power field) > [HPF] NRG Bacteria detection in urine sediment by light microsco py LARGE NRG Squamous epithelial cells detection in u rine sediment by light microscopy RARE NRG Crystals detection in urine sediment by light microsco py NONE NRG Casts detection in urine sediment by light microscopy NONE NRG Mucus detection in urine sediment by light microscopy NEGATIVE NRG Complete urinalysis with reflex to culture YES NRG Bacterial urine culture - 03/08/19 10:10 Bacterial urine culture [id number] NRG COLONY COUNT >100,000/ML NRG FTX;REPORTABLE SUSCEPTIBILITY REPORTED 03-10-19, 10 05 NRG Dirithromycin susceptibility test by dis k diffusion - 03/08/19 10:10 Gentamicin susceptibility test by minimum inhibitory c oncentration <= NRG Trimethoprim/sulfamethoxazole susceptibi lity test by minimum inhibitoryconcentration <= NRG Levofloxacin susceptibility test by minimum inhibitory concentration <= NRG Ampicillin susceptibility test by minimum inhibitory c oncentration > NRG Cefazolin susceptibility test by minimum inhibitory co ncentration > NRG Ceftriaxone susceptibility test by minimum inhibitory concentration <= NRG Ciprofloxacin susceptibility test by minimum inhibitor y concentration <= NRG Meropenem susceptibility test by minimum inhibitory co ncentration <= NRG Nitrofurantoin susceptibility test by mi nimum inhibitory concentration > NRG Amoxicillin and clavulanate potassium susc DORIAN > NRG Capillary blood glucose measurement by g lucometer (mass/volume) - 03/08/19 10:17 Capillary blood glucose measurement by glucometer (mas s/volume) > mg/dL 70-110 Complete blood count (CBC) with automate d white blood cell (WBC) differential - 03/08/19 10:26 Blood leukocytes automated count (number/volume) 12.4 10*3/uL 4.3-11.0 Blood erythrocytes automated count (number/volume) 4.84 10*6/uL 4.35-5.85 Venous blood hemoglobin measurement (mass/volume) 12.8 g/dL 13.3-17.7 Blood hematocrit (volume fraction) 40 % 40-54 Automated erythrocyte mean corpuscular volume 82 [ foz_us] 80-99 Automated erythrocyte mean corpuscular h emoglobin (mass per erythrocyte) 26 pg 25-34 Automated erythrocyte mean corpuscular h emoglobin concentration measurement (mass/volume) 32 g/dL 32-36 Automated erythrocyte distribution width ratio 13. 3 % 10.0- 14.5 Automated blood platelet count [...] 10*3 1.0-4.0 Blood monocytes automated count (number/volume) 1. 1 10*3 0.0-1.0 Automated eosinophil count 0.0 10*3/uL 0 .0-0.3 Automated blood basophil count (count/volume) 0.0 10*3/uL 0.0-0.1 Comprehensive metabolic panel - 03/08/19 10:26 Serum or plasma sodium measurement (moles/volume) 126 mmol/L 135-145 Serum or plasma potassium measurement (moles/volume) 5.3 mmol/L 3.6-5.0 Serum or plasma chloride measurement (moles/volume) 88 mmol/L 98-107 Carbon dioxide 20 mmol/L 21-32 Serum or plasma anion gap determination (moles/volume) 18 mmol/L 5-14 Serum or plasma urea nitrogen measurement (mass/volume ) 22 mg/dL 7-18 Serum or plasma creatinine measurement (mass/volume) 1.46 mg/dL 0.60-1.30 Serum or plasma urea nitrogen/creatinine mass ratio 15 NRG Serum or plasma creatinine measurement w ith calculation of estimated glomerular filtration rate 48 NRG Serum or plasma glucose measurement (mass/volume) 677 mg/dL 70-105 Serum or plasma calcium measurement (mass/volume) 10.3 mg/dL 8.5-10.1 Serum or plasma total bilirubin measurement (mass/volu me) 0.7 mg/dL 0.1-1.0 Serum or plasma alkaline phosphatase césar surement (enzymatic activity/volume) 165 U/L 40-136 Serum or plasma aspartate aminotransfera se measurement (enzymatic activity/volume) 13 U/L 5-34 Serum or plasma alanine aminotransferase measurement (enzymatic activity/volume) 18 U/L 0-55 Serum or plasma protein measurement (mass/volume) 8.0 g/dL 6.4-8.2 Serum or plasma albumin measurement (mass/volume) 3.9 g/dL 3.2-4.5 CALCIUM CORRECTED 10.4 mg/dL 8.5-10.1 Magnesium - 03/08/19 10:26 Magnesium 1.8 mg/dL 1.8-2.4 Serum or plasma troponin i.cardiac measu rement (mass/volume) - 03/08/19 10:26 Serum or plasma troponin i.cardiac measurement (mass/v olume) < ng/mL <0.028 Capillary blood glucose measurement by g lucometer (mass/volume) - 03/08/19 11:35 Capillary blood glucose measurement by glucometer (mas s/volume) 517 mg/dL 70-110 Blood lactic acid measurement (moles/vol ume) - 03/08/19 12:05 Blood lactic acid measurement (moles/volume) 1.35 mmol/L 0.50-2.00 Bacterial blood culture - 03/08/19 12:05 FREE TEXT EXTERNAL SUSCEPTIBILITY REPORTED ON [id number] NRG QUANTITY OF GROWTH Isolated NRG Bacterial blood culture [id number] NRG Bacterial blood culture - 03/08/19 12:25 FREE TEXT EXTERNAL SUSCEPTIBILITY REPORTED 03/12 16 :00 NRG QUANTITY OF GROWTH Isolated NRG Bacterial blood culture [id number] NRG FREE TEXT ENTRY 2 RML REPORTED ID 03/11 16:05 NRG RML [facility] - 03/08/19 12:2 5 Gentamicin susceptibility test by minimum inhibitory c oncentration <= NRG Levofloxacin susceptibility test by minimum inhibitory concentration <= NRG Ampicillin susceptibility test by minimum inhibitory c oncentration R NRG Cefazolin susceptibility test by minimum inhibitory co ncentration > NRG Ceftriaxone susceptibility test by minimum inhibitory concentration <= NRG Piperacillin/tazobactam susceptibility t est by minimum inhibitory concentration = NRG Ciprofloxacin susceptibility test by minimum inhibitor y concentration <= NRG Meropenem susceptibility test by minimum inhibitory co ncentration <= NRG Amoxicillin and clavulanate potassium susc DORIAN > NRG Capillary blood glucose measurement by g lucometer (mass/volume) - 03/08/19 16:07 Capillary blood glucose measurement by glucometer (mas s/volume) 474 mg/dL 70-110 Capillary blood glucose measurement by g lucometer (mass/volume) - 03/08/19 20:49 Capillary blood glucose measurement by glucometer (mas s/volume) 356 mg/dL 70-110 Capillary blood glucose measurement by g lucometer (mass/volume) - 03/08/19 22:52 Capillary blood glucose measurement by glucometer (mas s/volume) 313 mg/dL 70-110 Complete blood count (CBC) with automate d white blood cell (WBC) differential - 03/09/19 04:55 Blood leukocytes automated count (number/volume) 10.7 10*3/uL 4.3-11.0 Blood erythrocytes automated count (number/volume) 4.04 10*6/uL 4.35-5.85 Venous blood hemoglobin measurement (mass/volume) 11.0 g/dL 13.3-17.7 Blood hematocrit (volume fraction) 34 % 40-54 Automated erythrocyte mean corpuscular volume 84 [ foz_us] 80-99 Automated erythrocyte mean corpuscular h emoglobin (mass per erythrocyte) 27 pg 25-34 Automated erythrocyte mean corpuscular h emoglobin concentration measurement (mass/volume) 32 g/dL 32-36 Automated erythrocyte distribution width ratio 13. 2 % 10.0- 14.5 Automated blood platelet count (count/volume) 190 10*3/uL 130-400 Automated blood platelet mean volume measurement 10.8 [foz_us] 7.4-10.4 Automated blood neutrophils/100 leukocytes 80 % 42-75 Automated blood lymphocytes/100 leukocytes 11 % 12-44 Blood monocytes/100 leukocytes 8 % 0-12 Automated blood eosinophils/100 leukocytes 0 % 0-10 Automated blood basophils/100 leukocytes 0 % 0-10 Blood neutrophils automated count (number/volume) 8.6 10*3 1.8-7.8 Blood lymphocytes automated count (number/volume) 1.2 10*3 1.0-4.0 Blood monocytes automated count (number/volume) 0. 9 10*3 0.0-1.0 Automated eosinophil count 0.0 10*3/uL 0 .0-0.3 Automated blood basophil count (count/volume) 0.0 10*3/uL 0.0-0.1 Whole blood basic metabolic panel - 02/14 01/01 04:55 Serum or plasma sodium measurement (moles/volume) 131 mmol/L 135-145 Serum or plasma potassium measurement (moles/volume) 4.6 mmol/L 3.6-5.0 Serum or plasma chloride measurement (moles/volume) 98 mmol/L 98-107 Carbon dioxide 19 mmol/L 21-32 Serum or plasma anion gap determination (moles/volume) 14 mmol/L 5-14 Serum or plasma urea nitrogen measurement (mass/volume ) 15 mg/dL 7-18 Serum or plasma creatinine measurement (mass/volume) 0.90 mg/dL 0.60-1.30 Serum or plasma urea nitrogen/creatinine mass ratio 17 NRG Serum or plasma creatinine measurement w ith calculation of estimated glomerular filtration rate > NRG Serum or plasma glucose measurement (mass/volume) 322 mg/dL 70-105 Serum or plasma calcium measurement (mass/volume) 8.6 mg/dL 8.5-10.1 Magnesium - 03/09/19 04:55 Magnesium 1.7 mg/dL 1.8-2.4 Capillary blood glucose measurement by g lucometer (mass/volume) - 03/09/19 05:54 Capillary blood glucose measurement by glucometer (mas s/volume) 298 mg/dL 70-110 Capillary blood glucose measurement by g lucometer (mass/volume) - 03/09/19 11:42 Capillary blood glucose measurement by glucometer (mas s/volume) 431 mg/dL 70-110 Capillary blood glucose measurement by g lucometer (mass/volume) - 03/09/19 15:50 Capillary blood glucose measurement by glucometer (mas s/volume) 312 mg/dL 70-110 Capillary blood glucose measurement by g lucometer (mass/volume) - 03/09/19 21:31 Capillary blood glucose measurement by glucometer (mas s/volume) 368 mg/dL 70-110 Automated blood complete blood count (he mogram) panel - 03/10/19 05:22 Blood leukocytes automated count (number/volume) 9.6 10*3/uL 4.3-11.0 Blood erythrocytes automated count (number/volume) 3.88 10*6/uL 4.35-5.85 Venous blood hemoglobin measurement (mass/volume) 10.6 g/dL 13.3-17.7 Blood hematocrit (volume fraction) 33 % 40-54 Automated erythrocyte mean corpuscular volume 85 [ foz_us] 80-99 Automated erythrocyte mean corpuscular h emoglobin (mass per erythrocyte) 27 pg 25-34 Automated erythrocyte mean corpuscular h emoglobin concentration measurement (mass/volume) 32 g/dL 32-36 Automated erythrocyte distribution width ratio 13. 1 % 10.0- 14.5 Automated blood platelet count (count/volume) 189 10*3/uL 130-400 Automated blood platelet mean volume measurement 10.9 [foz_us] 7.4-10.4 Whole blood basic metabolic panel - 02/14 02/01 05:22 Serum or plasma sodium measurement (moles/volume) 133 mmol/L 135-145 Serum or plasma potassium measurement (moles/volume) 4.2 mmol/L 3.6-5.0 Serum or plasma chloride measurement (moles/volume) 100 mmol/L 98-107 Carbon dioxide 18 mmol/L 21-32 Serum or plasma anion gap determination (moles/volume) 15 mmol/L 5-14 Serum or plasma urea nitrogen measurement (mass/volume ) 9 mg/dL 7-18 Serum or plasma creatinine measurement (mass/volume) 0.79 mg/dL 0.60-1.30 Serum or plasma urea nitrogen/creatinine mass ratio 11 NRG Serum or plasma creatinine measurement w ith calculation of estimated glomerular filtration rate > NRG Serum or plasma glucose measurement (mass/volume) 280 mg/dL 70-105 Serum or plasma calcium measurement (mass/volume) 8.6 mg/dL 8.5-10.1 Magnesium - 03/10/19 05:22 Magnesium 1.6 mg/dL 1.8-2.4 Capillary blood glucose measurement by g lucometer (mass/volume) - 03/10/19 06:12 Capillary blood glucose measurement by glucometer (mas s/volume) 314 mg/dL 70-110 Capillary blood glucose measurement by g lucometer (mass/volume) - 03/10/19 11:15 Capillary blood glucose measurement by glucometer (mas s/volume) 273 mg/dL 70-110 Capillary blood glucose measurement by g lucometer (mass/volume) - 03/10/19 15:34 Capillary blood glucose measurement by glucometer (mas s/volume) 329 mg/dL 70-110 Capillary blood glucose measurement by g lucometer (mass/volume) - 03/10/19 20:55 Capillary blood glucose measurement by glucometer (mas s/volume) 220 mg/dL 70-110 Automated blood complete blood count ( mogram) panel - 03/11/19 04:26 Blood leukocytes automated count (number/volume) 8.5 10*3/uL 4.3-11.0 Blood erythrocytes automated count (number/volume) 3.68 10*6/uL 4.35-5.85 Venous blood hemoglobin measurement (mass/volume) 10.0 g/dL 13.3-17.7 Blood hematocrit (volume fraction) 32 % 40-54 Automated erythrocyte mean corpuscular volume 86 [ foz_us] 80-99 Automated erythrocyte mean corpuscular h emoglobin (mass per erythrocyte) 27 pg 25-34 Automated erythrocyte mean corpuscular h emoglobin concentration measurement (mass/volume) 32 g/dL 32-36 Automated erythrocyte distribution width ratio 13. 4 % 10.0- 14.5 Automated blood platelet count (count/volume) 207 10*3/uL 130-400 Automated blood platelet mean volume measurement 10.7 [foz_us] 7.4-10.4 Whole blood basic metabolic panel - 02/14 03/03 04:26 Serum or plasma sodium measurement (moles/volume) 136 mmol/L 135-145 Serum or plasma potassium measurement (moles/volume) 3.9 mmol/L 3.6-5.0 Serum or plasma chloride measurement (moles/volume) 105 mmol/L 98-107 Carbon dioxide 21 mmol/L 21-32 Serum or plasma anion gap determination (moles/volume) 10 mmol/L 5-14 Serum or plasma urea nitrogen measurement (mass/volume ) 11 mg/dL 7-18 Serum or plasma creatinine measurement (mass/volume) 0.82 mg/dL 0.60-1.30 Serum or plasma urea nitrogen/creatinine mass ratio 13 NRG Serum or plasma creatinine measurement w ith calculation of estimated glomerular filtration rate > NRG Serum or plasma glucose measurement (mass/volume) 326 mg/dL 70-105 Serum or plasma calcium measurement (mass/volume) 8.4 mg/dL 8.5-10.1 Magnesium - 03/11/19 04:26 Magnesium 1.7 mg/dL 1.8-2.4 Capillary blood glucose measurement by g lucometer (mass/volume) - 03/11/19 04:51 Capillary blood glucose measurement by glucometer (mas s/volume) 310 mg/dL 70-110 Capillary blood glucose measurement by g lucometer (mass/volume) - 03/11/19 06:11 Capillary blood glucose measurement by glucometer (mas s/volume) 333 mg/dL 70-110 Capillary blood glucose measurement by g lucometer (mass/volume) - 03/11/19 08:05 Capillary blood glucose measurement by glucometer (mas s/volume) 268 mg/dL 70-110 Capillary blood glucose measurement by g lucometer (mass/volume) - 03/11/19 10:47 Capillary blood glucose measurement by glucometer (mas s/volume) 229 mg/dL 70-110 A1C - 03/27/19 09:03 HEMOGLOBIN A1c >14.0 % of total Hgb <5.7 PSA (FREE AND TOTAL) - 03/27/19 09:03 PSA, TOTAL 0.4 ng/mL < OR = 4.0 PSA, FREE 0.1 ng/mL NRG PSA, % FREE 25 % (calc) >25 Comprehensive metabolic panel - 06/05/19 15:58 Serum or plasma sodium measurement (moles/volume) 138 mmol/L 135-145 Serum or plasma potassium measurement (moles/volume) 4.4 mmol/L 3.6-5.0 Serum or plasma chloride measurement (moles/volume) 100 mmol/L 98-107 Carbon dioxide 26 mmol/L 21-32 Serum or plasma anion gap determination (moles/volume) 12 mmol/L 5-14 Serum or plasma urea nitrogen measurement (mass/volume ) 13 mg/dL 7-18 Serum or plasma creatinine measurement (mass/volume) 0.92 mg/dL 0.60-1.30 Serum or plasma urea nitrogen/creatinine mass ratio 14 NRG Serum or plasma creatinine measurement w ith calculation of estimated glomerular filtration rate > NRG Serum or plasma glucose measurement (mass/volume) 134 mg/dL 70-105 Serum or plasma calcium measurement (mass/volume) 9.4 mg/dL 8.5-10.1 Serum or plasma total bilirubin measurement (mass/volu me) 0.4 mg/dL 0.1-1.0 Serum or plasma alkaline phosphatase césar surement (enzymatic activity/volume) 161 U/L 40-136 Serum or plasma aspartate aminotransfera se measurement (enzymatic activity/volume) 154 U/L 5-34 Serum or plasma alanine aminotransferase measurement (enzymatic activity/volume) 193 U/L 0-55 Serum or plasma protein measurement (mass/volume) 7.5 g/dL 6.4-8.2 Serum or plasma albumin measurement (mass/volume) 4.2 g/dL 3.2-4.5 CALCIUM CORRECTED 9.2 mg/dL 8.5-10.1 LIPID PANEL - 08/04/19 09:56 CHOLESTEROL, TOTAL 140 mg/dL <200 HDL CHOLESTEROL 50 mg/dL >40 TRIGLYCERIDES 131 mg/dL <150 LDL-CHOLESTEROL 69 mg/dL (calc) NRG CHOL/HDLC RATIO 2.8 (calc) <5.0 NON HDL CHOLESTEROL 90 mg/dL (calc) <130 CMP - 08/04/19 09:56 GLUCOSE 177 mg/dL 65-99 UREA NITROGEN (BUN) 22 mg/dL 7-25 CREATININE 1.05 mg/dL 0.70-1.25 eGFR NON-AFR. [place] 73 mL/min/1.73m2 > OR = 60 eGFR 85 mL/min/1.73m2 > OR = 60 BUN/CREATININE RATIO NOT APPLICABLE (calc) 6-22 SODIUM 142 mmol/L 135-146 POTASSIUM 4.5 mmol/L 3.5-5.3 CHLORIDE 106 mmol/L 98-110 CARBON DIOXIDE 26 mmol/L 20-32 CALCIUM 9.4 mg/dL 8.6-10.3 PROTEIN, TOTAL 6.9 g/dL 6.1-8.1 ALBUMIN 4.5 g/dL 3.6-5.1 GLOBULIN 2.4 g/dL (calc) 1.9-3.7 ALBUMIN/GLOBULIN RATIO 1.9 (calc) 1.0-2. 5 BILIRUBIN, TOTAL 0.6 mg/dL 0.2-1.2 ALKALINE PHOSPHATASE 92 U/L 40-115 AST 20 U/L 10-35 ALT 26 U/L 9- A1C - 08/04/19 09:56 HEMOGLOBIN A1c 7.6 % of total Hgb <5.7 CMP - 10/02/19 09:53 GLUCOSE 147 mg/dL 65-99 UREA NITROGEN (BUN) 20 mg/dL 7-25 CREATININE 1.01 mg/dL 0.70-1.25 eGFR NON-AFR. [place] 77 mL/min/1.73m2 > OR = 60 eGFR 89 mL/min/1.73m2 > OR = 60 BUN/CREATININE RATIO NOT APPLICABLE (calc) 6-22 SODIUM 139 mmol/L 135-146 POTASSIUM 4.6 mmol/L 3.5-5.3 CHLORIDE 102 mmol/L 98-110 CARBON DIOXIDE 25 mmol/L 20-32 CALCIUM 9.6 mg/dL 8.6-10.3 PROTEIN, TOTAL 7.3 g/dL 6.1-8.1 ALBUMIN 4.7 g/dL 3.6-5.1 GLOBULIN 2.6 g/dL (calc) 1.9-3.7 ALBUMIN/GLOBULIN RATIO 1.8 (calc) 1.0-2. 5 BILIRUBIN, TOTAL 0.6 mg/dL 0.2-1.2 ALKALINE PHOSPHATASE 99 U/L 35-144 AST 20 U/L 10-35 ALT 24 U/L 9-46 CBC - 10/02/19 09:53 WHITE BLOOD CELL COUNT 8.5 Thousand/uL 3 .8-10.8 RED BLOOD CELL COUNT 4.69 Million/uL 4.2 0-5.80 HEMOGLOBIN 13.0 g/dL 13.2-17.1 HEMATOCRIT 40.0 % 38.5-50.0 MCV 85.3 fL 80.0-100.0 MCH 27.7 pg 27.0-33.0 MCHC 32.5 g/dL 32.0-36.0 RDW 13.4 % 11.0-15.0 PLATELET COUNT 195 Thousand/uL 140-400 MPV 11.2 fL 7.5-12.5 ABSOLUTE NEUTROPHILS 5891 cells/uL 1500- 7800 ABSOLUTE LYMPHOCYTES 1709 cells/uL 850-3 900 ABSOLUTE MONOCYTES 663 cells/uL 200-950 ABSOLUTE EOSINOPHILS 204 cells/uL 15-500 ABSOLUTE BASOPHILS 34 cells/uL 0-200 NEUTROPHILS 69.3 % NRG LYMPHOCYTES 20.1 % NRG MONOCYTES 7.8 % NRG EOSINOPHILS 2.4 % NRG BASOPHILS 0.4 % NRG CMP - 12/15/19 09:10 GLUCOSE 176 mg/dL 65-99 UREA NITROGEN (BUN) 13 mg/dL 7-25 CREATININE 1.00 mg/dL 0.70-1.25 eGFR NON-AFR. [place] 78 mL/min/1.73m2 > OR = 60 eGFR 90 mL/min/1.73m2 > OR = 60 BUN/CREATININE RATIO NOT APPLICABLE (calc) 6-22 SODIUM 142 mmol/L 135-146 POTASSIUM 4.4 mmol/L 3.5-5.3 CHLORIDE 105 mmol/L 98-110 CARBON DIOXIDE 27 mmol/L 20-32 CALCIUM 9.3 mg/dL 8.6-10.3 PROTEIN, TOTAL 7.1 g/dL 6.1-8.1 ALBUMIN 4.6 g/dL 3.6-5.1 GLOBULIN 2.5 g/dL (calc) 1.9-3.7 ALBUMIN/GLOBULIN RATIO 1.8 (calc) 1.0-2. 5 BILIRUBIN, TOTAL 0.5 mg/dL 0.2-1.2 ALKALINE PHOSPHATASE 123 U/L 35-144 AST 33 U/L 10-35 ALT 40 U/L A1C - 12/15/19 09:10 HEMOGLOBIN A1c 7.4 % of total Hgb <5.7 Encounters ACCT No. Visit Date/Time Discharge Status Pt. Type Provider Facility Loc./Unit Complaint [id number] 02/26/2017 15:57:00 03/10/2017 18:20: 00 DIS Inpatient ZEFERINO REEDER [facility] [place] [id number] 02/26/2017 19:03:28 Document Registration [id number] 11/15/2019 11:23:00 23:59:59 CLS Outpatient CLEMENTE JO APRN [facility] RAD FS M54.5 [id number] 06/06/2019 13:58:00 23:59:59 CLS Outpatient SELF TALA DE ANDA [facility] RAD FS ENLARGEMENT OF SCROTAL SAC,EPIDIDYMITIS [id number] 06/05/2019 15:47:00 23:59:59 CLS Outpatient SELF TALA DE ANDA [facility] LAB FS I10 [id number] 03/08/2019 12:30:00 14:15:00 DIS Inpatient IDALIA REID MD [facility] 4TH ARF;HYPERGLYCEMIA;UTI;W EAKNESS;DM II UNCONTROLLED [id number] 12/27/2018 05:56:00 13:30:00 DIS Outpatient LINDA SANCHEZ MD [facility] SDC URINE RETENTION [id number] 12/26/2018 05:59:00 23:59:59 CLS Outpatient LINDA SANCHEZ MD [facility] PREOP URINE RETENTION [id number] 12/17/2018 17:12:00 15:33:00 DIS Inpatient LISSA GUILLEN MD [facility] ICU SEPSIS,UTI,DKA [id number] 02/16/2020 17:05:[address] Emergency KYUNG PRUITT MD [facility] ER FS FALL/HIT HEAD [id number] 01/17/2020 09:30:00 01/17/2020 23:59: 59 [facility] [id number] 12/15/2019 09:15:00 Document Registration [id number] 10/02/2019 09:30:00 Document Registration [id number] 10:00:00 Document Registration [id number] 03/27/2019 08:30:00 Document Registration [id number] 11/30/2018 11:00:00 Document Registration
[2020-02-16] MEDS ORDERED: fentaNYL INJECTION 100 MCG/2 ML AMP IVP ONE ×2 (17:15→19:30)
[2020-02-16] MEDS ORDERED: TETANUS,DIPTH,PERTUSS P/F (BOOSTRIX) 0.5 ML VIAL IM ONE (17:15)
[2020-02-16 17:24] LABS: HEMATOCRIT 37 % (40-54); HEMOGLOBIN 12.1 G/DL (13.3-17.7); MEAN CORPUSCULAR HEMOGLOBIN 28 PG (25-34); MEAN CORPUSCULAR HGB CONC 33 G/DL (32-36); MEAN CORPUSCULAR VOLUME 86 FL (80-99); MEAN PLATELET VOLUME 10.9 FL (7.4-10.4); PLATELET COUNT 172 10^3/uL (130-400); RED CELL DISTRIBUTION WIDTH 13.1 % (10.0-14.5); WHITE BLOOD COUNT 8.1 10^3/uL (4.3-11.0)
[2020-02-16 17:25] LABS: BASOPHILS % (AUTO) 0 % (0-10); EOSINOPHILS # (AUTO) 0.2 10^3/uL (0.0-0.3); EOSINOPHILS % (AUTO) 2 % (0-10); LYMPHOCYTES # (AUTO) 2.1 X 10^3 (1.0-4.0); LYMPHOCYTES % (AUTO) 25 % (12-44); MONOCYTES # (AUTO) 0.6 X 10^3 (0.0-1.0); MONOCYTES % (AUTO) 7 % (0-12); NEUTROPHILS # (AUTO) 5.3 X 10^3 (1.8-7.8); NEUTROPHILS % (AUTO) 65 % (42-75)
[2020-02-16 17:39] LABS: INR 1.1 (0.8-1.4)
[2020-02-16 17:56] LABS: ALANINE AMINOTRANSFERASE 25 U/L (0-55); ALKALINE PHOSPHATASE 99 U/L (40-136); BILIRUBIN,TOTAL 0.4 MG/DL (0.1-1.0); BUN/CREATININE RATIO 15; CALCIUM 9.2 MG/DL (8.5-10.1); CARBON DIOXIDE 25 MMOL/L (21-32); CHLORIDE 100 MMOL/L (98-107); CREATININE SERUM 0.84 MG/DL (0.60-1.30); GFR ESTIMATED > 60; GLUCOSE 144 MG/DL (70-105); POTASSIUM 4.3 MMOL/L (3.6-5.0); SODIUM 141 MMOL/L (135-145); TOTAL PROTEIN 6.5 GM/DL (6.4-8.2)
[2020-02-16 17:57] LABS: ALBUMIN 4.3 GM/DL (3.2-4.5)
[2020-02-16] MEDS ORDERED: AMPICILLIN/SULBACTAM INJECTION 3 GM in NS (IVPB) 100 ML IV ONE (18:00)
[2020-02-16] MEDS ORDERED: DEXAMETHASONE 10 MG/ML (DECADRON) 1 ML VIAL IV ONE (18:00)
--- NOTE | 2020-02-16 18:05 | Diagnostic Imaging Report ---
EXAMINATION: Chest radiograph, portable AP view. DATE: 02/16/2020 5:46 PM. INDICATION: 69-year-old female, fall. Hit back of head. Dizziness and nausea. COMPARISON: March 08, 2019. FINDINGS: Heart size and mediastinal contours are unremarkable. There is no identified pneumothorax. There is no large pleural effusion. There is no identified focal airspace consolidation. IMPRESSION: No identified acute cardiopulmonary abnormality. Dictated by: Dictated on workstation # [id number]
--- NOTE | 2020-02-16 18:07 | Diagnostic Imaging Report ---
PROCEDURE: CT head and CT cervical spine without contrast. TECHNIQUE: Multiple contiguous axial images were obtained through the brain and cervical spine without the use of intravenous contrast. Sagittal and coronal reformations through the cervical spine were then performed. Auto Exposure Controls were utilized during the CT exam to meet ALARA standards for radiation dose reduction. DATE: February 16, 2020. COMPARISON: None. INDICATION: 69-year-old male, fall. Hit back of head. Dizziness and nausea. Head and neck pain. FINDINGS: There is mild soft tissue swelling in the region of the right occipital scalp on axial image 21 most likely relating to soft tissue contusion/small hematoma. There is no identified radiopaque foreign body. There is a nondisplaced right occipital bone fracture perhaps best illustrated on axial image 11 and adjacent sequential images. This is also well seen on the CT cervical spine portion of the exam on axial image 7 and contiguous axial images for instance. The frontal sinuses are hypoplastic. There is nonspecific complete opacification of the visualized portions of the left maxillary sinus. There is mucosal thickening in the right sphenoid sinus. There is partial opacification in the right mastoid air cells. The ventricles and cerebral spinal fluid spaces are of normal size and configuration for the patient's age. There is no mass effect or midline shift. There is no acute intracranial hemorrhage. There is no abnormal extra-axial fluid collection. There is straightening of the normal cervical lordosis. There is no identified facet joint subluxation or dislocation. There is no asymmetric widening of the cervical disc spaces. There is no prominent prevertebral soft tissue swelling. There is no identified acute fracture of the cervical spine. There are left facet degenerative changes at C4-C5 and mild left facet degenerative changes at C5-C6. The cervical disc heights are well preserved. CT is limited for assessment of disc pathology as well as additional nonbloody causes of pathology in the spinal canal. There is respiratory motion artifact and limited evaluation of the lungs. IMPRESSION: 1. Nondisplaced fracture of the right occipital bone of the skull. 2. No identified acute intracranial abnormality. 3. No identified acute fracture or malalignment of the cervical spine. Dictated by: Dictated on workstation # [id number]
--- NOTE | 2020-02-16 19:28 | NUR ---
[facility] declined transfer of patient to [facility].
--- NOTE | 2020-02-16 19:40 | NUR ---
[facility] Contacted for transport
--- NOTE | 2020-02-16 20:01 | ED Trauma-Multisystem ---
General Chief Complaint: Trauma-Non Activation Stated Complaint: FALL/HIT HEAD Nursing Triage Note: Patient fell hitting head on garage floor, [employer]. History of Present Illness Date Seen by Provider: Feb 16, 2020 Time Seen by Provider: 18:05 Initial Comments The patient is a 69-year-old male with a history of hypertension, hyperlipidemia and insulin-dependent diabetes as well as depression. He is not on any blood thinners. He presents for evaluation of a head injury sustained in the setting of a ground-level fall occurring at home in his garage just prior to arrival. Patient states he was in his garage to get into his car when his "left leg gave out." He sat down first onto his buttocks, then fell backwards, striking the right part of his occiput on the ground. No loss of consciousness, nausea or vomiting or amnesia to events. Patient is alert and oriented 4 and pleasantly and appropriately interactive and in absolutely no acute distress upon initial evaluation here in the emergency department. He states he did feel lightheaded after the fall and was unable to get up on his own; EMS had to help him up upon their arrival. Patient reports neuropathy from his diabetes at baseline and states that it is not unusual for him to have issues of this sort with his leg. He states he was feeling well before the onset of symptoms and specifically denies fevers, nausea or vomiting, focal weakness, numbness, tingling, neck stiffness/pain/meningismus, vision changes, shortness of breath or chest pain at any time prior to, during or after his fall, flank pain, back pain, abdominal pain, dysuria or hematuria, changes in bowel habits. Patient firmly and repeatedly denies pain anywhere else on his body as result of his fall aside from his posterior head, as above noted. He also reports a bilateral frontal headache since the fall. Vital signs were appropriate in route per EMS and are appropriate here and blood glucose is also appropriate here. A: patent, protecting B: bilat +BS C: RRR; central and periph pulses 2+ D: GCS15; MAEEs; PERRL E: exposed and rolled Allergies and Home Medications Allergies Coded Allergies: No Known Drug Allergies (Unverified , 12/17/18) Home Medications Atorvastatin Calcium 40 Mg Tablet, 40 MG PO HS, (Reported) Carvedilol 25 Mg Tablet, 50 MG PO DAILY, (Reported) TAKES 2 (25MG) TABLETS Cholecalciferol (Vitamin D3) 400 Unit Capsule, 400 UNIT PO DAILY, (Reported) Gabapentin 300 Mg Capsule, 300 MG PO BID, (Reported) Gabapentin 300 Mg Capsule, 300 MG PO 1200 PRN for NEUROPTAHY PAIN, (Reported) Insulin Detemir 100 Unit/1 Ml Insuln.pen, 10 UNIT SQ HS Prescribed by: TRENTON RIZZO on 03/11/19852 Lamotrigine 100 Mg Tablet, 100 MG PO BID, (Reported) Melatonin 5 Mg Tablet, 5 MG PO HS, (Reported) Metformin HCl 1,000 Mg Tablet, 1,000 MG PO BID, (Reported) Quetiapine Fumarate 400 Mg Tablet, 1,200 MG PO HS, (Reported) TAKES 3 (400MG) TABLETS Sulfamethoxazole/Trimethoprim 1 Each Tablet, 1 EACH PO BID Prescribed by: TRENTON RIZZO on 03/11/19852 Venlafaxine HCl 150 Mg Cap.er.24h, 150 MG PO BID, (Reported) Patient Home Medication List Home Medication List Reviewed: Yes Review of Systems Review of Systems Constitutional: see HPI All Other Systems Reviewed Negative Unless Noted: Yes (Negative excepted noted.) Past Npunufh-Hjrnlh-Fdthaf Hx Past Med/Social Hx: Reviewed Nursing Past Med/Soc Hx Patient Social History Alcohol Use: Denies Use Recreational Drug Use: No Former Smoker, Quit: December 28, 1983 2nd Hand Smoke Exposure: No Recent Foreign Travel: No Contact w/Someone Who Travel: No Recent Infectious Disease Expo: No Recent Hopitalizations: No Immunizations Up To Date Date of Pneumonia Vaccine: Jun 18, 2014 Seasonal Allergies Seasonal Allergies: No Past Medical History Surgeries: Yes Appendectomy, Orthopedic Respiratory: No Cardiac: Yes High Cholesterol, Hypertension Neurological: No Genitourinary: Yes Benign Prostatic Hyperpl Gastrointestinal: No Musculoskeletal: No Endocrine: Yes Diabetes, Non-Insulin dep HEENT: No Cancer: Yes Skin Psychosocial: Yes Depression Integumentary: No Blood Disorders: No Family Medical History Reviewed Nursing Family Hx Alzheimer's disease Arthritis Asthma Cardiovascular disease Completed stroke Coronary thrombosis Hypertension Myocardial infarction Thyroid disease Physical Exam Vital Signs Vital Signs - First Documented 02/16/20 17:32 Temp 36.4 Pulse 72 Resp 18 B/P (MAP) 153/96 (115) Pulse Ox 98 Height, Weight, BMI Height: 6'1.00" Weight: 253lbs. 0.0oz. 114.722754uq; 39.00 BMI Method:Stated General Appearance: No Apparent Distress This is a well-appearing 69-year-old male appearing nontoxic and in no acute distress. Head is normocephalic and with a minimal right occipital cep halohematoma with abrasion and no active bleeding noted. No hemotympanum bilaterally; no other signs basilar fracture. No other signs of trauma to face or scalp or head or neck. Lungs are clear to auscultation at all stations. No adventitious sounds are noted. There is a normal S1 and S2 without rubs or gallops and capillary refill is appropriate, less than 2 seconds globally. There is a regular rhythm. Abdomen is soft, nontender and nondistended. Examination of the back reveals no erythema, warmth, swelling, tenderness, step-offs or deformities. Skin is warm and dry without cyanosis, clubbing or edema. Psychiatrically, the patient demonstrates appropriate mood and affect and is alert. Examination of the bilateral arms and legs reveals no pain with ranging o f any joints and bilateral upper and lower extremities with 2+ pulses distally. Neurologically, cranial nerves II through XII are intact and no lateralizing deficits are noted. Visual romero are intact to confrontation and finger counting. Speech is normal. Language is normal. Coordination is normal. There is no dysmetria with zzqklx-rs-lngm or bqqh-xp-xlio bilaterally. Strength is 5 out of 5 in all joints of bilateral upper and lower extremities; no drift noted with arm and leg raise bilaterally. Sensation is intact to light touch in bilateral upper and lower extremities. Ambulation testing is deferred. Progress/Results/Core Measures Results/Orders Lab Results Laboratory Tests Test 02/16/20 17:15 Range/Units White Blood Count 8.1 4.3-11.0 10^3/uL Red Blood Count 4.33 L 4.35-5.85 10^6/uL Hemoglobin 12.1 L 13.3-17.7 G/DL Hematocrit 37 L 40-54 % Mean Corpuscular Volume 86 80-99 FL Mean Corpuscular Hemoglobin 28 25-34 PG Mean Corpuscular Hemoglobin Concent 33 32-36 G/DL Red Cell Distribution Width 13.1 10.0-14.5 % Platelet Count 172 130-400 10^3/uL Mean Platelet Volume 10.9 H 7.4-10.4 FL Neutrophils (%) (Auto) 65 42-75 % Lymphocytes (%) (Auto) 25 12-44 % Monocytes (%) (Auto) 7 0-12 % Eosinophils (%) (Auto) 2 0-10 % Basophils (%) (Auto) 0 0-10 % Neutrophils # (Auto) 5.3 1.8-7.8 X 10^3 Lymphocytes # (Auto) 2.1 1.0-4.0 X 10^3 Monocytes # (Auto) 0.6 0.0-1.0 X 10^3 Eosinophils # (Auto) 0.2 0.0-0.3 10^3/uL Basophils # (Auto) 0.0 0.0-0.1 10^3/uL Prothrombin Time 14.0 12.2-14.7 SEC INR Comment 1.1 0.8-1.4 Activated Partial Thromboplast Time 29 24-35 SEC Sodium Level 141 135-145 MMOL/L Potassium Level 4.3 3.6-5.0 MMOL/L Chloride Level 100 98-107 MMOL/L Carbon Dioxide Level 25 21-32 MMOL/L Anion Gap 16 H 5-14 MMOL/L Blood Urea Nitrogen 13 7-18 MG/DL Creatinine 0.84 0.60-1.30 MG/DL Estimat Glomerular Filtration Rate > 60 BUN/Creatinine Ratio 15 Glucose Level 144 H 70-105 MG/DL Calcium Level 9.2 8.5-10.1 MG/DL Corrected Calcium 9.0 8.5-10.1 MG/DL Total Bilirubin 0.4 0.1-1.0 MG/DL Aspartate Amino Transf (AST/SGOT) 23 5-34 U/L Alanine Aminotransferase (ALT/SGPT) 25 0-55 U/L Alkaline Phosphatase 99 40-136 U/L Troponin I < 0.30 <0.30 NG/ML Pro-B-Type Natriuretic Peptide 60.0 <75.0 PG/ML Total Protein 6.5 6.4-8.2 GM/DL Albumin 4.3 3.2-4.5 GM/DL My Orders Orders - KYUNG PRUITT MD Cbc With Automated Diff (02/16/20 17:10) Comprehensive Metabolic Panel (02/16/20 17:10) Troponin I Fs (02/16/20 17:10) Ekg Tracing (02/16/20 17:10) Chest 1 View Ap/Pa Only (02/16/20 17:10) Protime With Inr (02/16/20 17:10) Partial Thromboplastin Time (02/16/20 17:10) Probnp Fs (02/16/20 17:10) Dipht,Pertuss(Acell),Tet Adult (Boostrix (02/16/20 17:15) Ed Iv/Invasive Line Start (02/16/20 17:10) Ns Iv 1000 Ml (Sodium Chloride 0.9%) (02/16/20 17:10) Ua Culture If Indicated (02/16/20 17:10) Cervical Collar: Apply (02/16/20 17:10) Fentanyl Injection (Sublimaze Injection (02/16/20 17:15) Ct Head/Cervical Spine Wo (02/16/20 17:10) Ampicillin/Sulbactam Injection (Unasyn 3 (02/16/20 18:00) Dexamethasone Injection (Decadron Inject (02/16/20 18:00) Fentanyl Injection (Sublimaze Injection (02/16/20 19:30) Medications Given in ED Current Medications Medications Dose Ordered Sig/Scar Route Start Time Stop Time Status Last Admin Dose Admin Diphtheria/ Tetanus/Acell Pertussis 0.5 ml ONCE ONCE IM 02/16/20 17:15 02/16/20 17:16 DC 02/16/20 17:47 0.5 ML Fentanyl Citrate 50 mcg ONCE ONCE IVP 02/16/20 17:15 02/16/20 17:16 DC 02/16/20 17:47 50 MCG Fentanyl Citrate 75 mcg ONCE ONCE IVP 02/16/20 19:30 02/16/20 19:31 DC 02/16/20 19:47 75 MCG Vital Signs/I&O 02/16/20 17:32 Temp 36.4 Pulse 72 Resp 18 B/P (MAP) 153/96 (115) Pulse Ox 98 Blood Pressure Mean: 115 Progress Progress Note : Time: 20:01 Progress Note Elderly diabetic male who presents for evaluation of occipital head injury after a ground-level fall at home which generally sounds mechanical in nature however patient does report that his left leg "gave out" and was lightheaded and couldn't get up afterwards. We will check labs and EKG and chest x-ray and advanced imaging of the head and cervical spine and will administer medication for discomfort and nausea as well as a liter of IV fluids. We will then reevalua te. 1900: Laboratory testing and EKG are unrevealing of any evidence of an acute process. Unfortunately, CT imaging of the head reveals a nondisplaced fracture of the occipital bone on the right. Patient will require further traumatologic evaluation. Case is discussed with Dr. Dao of trauma surgery who advises transfer to a facility with neurosurgical coverage available. Therefore, the patient is graciously accepted in transfer to [facility] for further trauma care by Dr. Wu. Upon reassessment prior to transfer hemodynamics remain acceptable and [place] is alert and oriented 4 and in no acute distress. He is stable for transfer at this time. Note: we have not been able to obtain a urine specimen from the patient as of time of transfer. Comment Sinus rhythm, rate 70, no acute ST elevation or depression, CO 181, QRS 121, QTC 439, EP interpretation. Diagnostic Imaging Comments CHEST 1 VIEW AP/PA ONLY EXAMINATION: Chest radiograph, portable AP view. DATE: 02/16/2020 5:46 PM. INDICATION: 69-year-old female, fall. Hit back of head. Dizziness and nausea. COMPARISON: March 08, 2019. FINDINGS: Heart size and mediastinal contours are unremarkable. There is no identified pneumothorax. There is no large pleural effusion. There is no identified focal airspace consolidation. IMPRESSION: No identified acute cardiopulmonary abnormality. Date of Exam:02/16/20 CT HEAD/CERVICAL SPINE WO PROCEDURE: CT head and CT cervical spine without contrast. TECHNIQUE: Multiple contiguous axial images were obtained through the brain and cervical spine without the use of intravenous contrast. Sagittal and coronal reformations through the cervical spine were then performed. Auto Exposure Controls were utilized during the CT exam to meet ALARA standards for radiation dose reduction. DATE: February 16, 2020. COMPARISON: None. INDICATION: 69-year-old male, fall. Hit back of head. Dizziness and nausea. Head and neck pain. FINDINGS: There is mild soft tissue swelling in the region of the right occipital scalp on axial image 21 most likely relating to soft tissue contusion/small hematoma. There is no identified radiopaque foreign body. There is a nondisplaced right occipital bone fracture perhaps best illustrated on axial image 11 and adjacent sequential images. This is also well seen on the CT cervical spine portion of the exam on axial image 7 and contiguous axial images for instance. The frontal sinuses are hypoplastic. There is nonspecific complete opacification of the visualized portions of the left maxillary sinus. There is mucosal thickening in the right sphenoid sinus. There is partial opacification in the right mastoid air cells. The ventricles and cerebral spinal fluid spaces are of normal size and configuration for the patient's age. There is no mass effect or midline shift. There is no acute intracranial hemorrhage. There is no abnormal extra-axial fluid collection. There is straightening of the normal cervical lordosis. There is no identified facet joint subluxation or dislocation. There is no asymmetric widening of the cervical disc spaces. There is no prominent prevertebral soft tissue swelling. There is no identified acute fracture of the cervical spine. There are left facet degenerative changes at C4-C5 and mild left facet degenerative changes at C5-C6. The cervical disc heights are well preserved. CT is limited for assessment of disc pathology as well as additional nonbloody causes of pathology in the spinal canal. There is respiratory motion artifact and limited evaluation of the lungs. IMPRESSION: 1. Nondisplaced fracture of the right occipital bone of the skull. 2. No identified acute intracranial abnormality. 3. No identified acute fracture or malalignment of the cervical spine. Dictated by: Dictated on workstation # [id number] Dict: 02/16/20 1751 Trans: 02/16/201835 [facility] [id number] Interpreted by: GEO CASTRO MD Electronically signed by: GEO CASTRO MD 02/16/20 183 Critical Care Note Critical Care Total Time (minutes) 45 Departure Impression Primary Impression: Occipital bone fracture Qualified Codes: S02.11GA - Other fracture of occiput, right side, initial encounter for closed fracture Additional Impression: Fall on same level from slipping, tripping and stumbling with subsequent striking against other object, initial encounter Disposition: XFER SHT-TRM HOSP Condition: Stable Transfer Transfer Reason: Exceeds level of care Time Spoke to Accepting Phy: 19:00 Transfer Progress Notes Requires neurosurgical eval. Transferring to [facility] per d/w Dr. Dao. Method of Transfer: EMS Departure-Patient Inst. Referrals: TALA FRY MD (PCP/Family) Primary Care Physician KYUNG PRUITT MD Feb 16, 2020 20:01
[2020-02-16] MEDS ORDERED: ONDANSETRON 4 MG/2 ML (SDV) Z0FRAN ONE (21:15)
--- NOTE | 2020-02-16 21:15 | NUR ---
[facility] called at this time to fly pt to [facility]. Flight accepted.
[2020-02-16] MEDS ORDERED: NS IV 1000 ML 1,000 ML ONE (21:28)
--- NOTE | 2020-02-16 21:30 | NUR ---
2133- 30mg Etomidate given 4- 100mg Succinylcholine given 5- Pt intubated 2140- 2.5mg Versed and 100mcg Fentanyl given 2155- 2.5mg Versed and 100mcg Fentanyl given 2205- 2.5mg Versed given
[2020-02-16] MEDS ORDERED: PROPOFOL DRIP (ICU) 100 ML IV ONE (21:42)
[2020-02-16 21:50] VITALS: BP 171/93
--- NOTE | 2020-02-16 21:56 | Diagnostic Imaging Report ---
PROCEDURE: CT head without contrast. TECHNIQUE: Multiple contiguous axial images were obtained through the brain without the use of intravenous contrast. Auto Exposure Controls were utilized during the CT exam to meet ALARA standards for radiation dose reduction. DATE: February 16, 2020. COMPARISON: CT head and cervical spine February 16, 2020 at 1726 hours. INDICATION: 69-year-old male, mental status change since comparison exam. FINDINGS: There is interval acute hemorrhage involving the left temporal lobe and temporal occipital region with the size of intraparenchymal hemorrhage measuring roughly 3.1 x 6.3 x 2.2 cm and extent. There is adjacent edema and some associated mass effect. There is no current midline shift. There is an area of abnormal high attenuation along the left frontal bone on axial image 28 without adjacent skull fracture or osseous abnormality. This may relate to a small extra-axial hematoma or potentially an extra-axial mass. This measures 20 x 6 mm in size. There is no hydrocephalus. There is complete opacification of the left maxillary sinus. The mastoid air cells and middle ears are well-aerated, bilaterally. IMPRESSION: 1. Interval acute hemorrhage involving the left temporal lobe and left upper occipital region with adjacent edema and mild mass effect. There is no current midline shift. 2. High attenuation extra-axial lesion adjacent to the left frontal bone, measuring 20 x 6 mm in size. This could relate to an extra-axial mass or extra-axial hematoma. This may be better evaluated with MRI brain without and with intravenous contrast. Dr. Francisco was notified by telephone of the above findings at 2142 hours on February 16, 2020 and acknowledged receipt of this critical result. Dictated by: Dictated on workstation # [id number]
--- NOTE | 2020-02-16 22:00 | Diagnostic Imaging Report ---
INDICATION: Tube placement COMPARISON: Imaging from the same date. TECHNIQUE: Single radiograph of the chest dated 02/16/2020. FINDINGS: Endotracheal tube is present with the distal tip overlying the tracheal air column approximately 2.3 cm above the level of the daljit. Enteric catheter is present with the distal tip extending inferior to the [id number]-nyuv within the abdomen. The cardiac silhouette is enlarged. Central pulmonary vascular congestion is present. Significantly low lung volumes with patchy opacities noted within the left mid and lower lung. Minimal right basilar opacities. No significant pleural effusion. No pneumothorax. No acute osseous abnormality. IMPRESSION: Lines and tubes as described above. Retraction of endotracheal tube by 1 to 2 cm is recommended for optimal positioning. Cardiomegaly with mild central pulmonary vascular congestion. Significantly low lung volumes with bibasilar and left midlung atelectasis and/or infiltrate. Recommend continued radiographic follow-up. Dictated by: Dictated on workstation # [id number]
[2020-02-16 22:55] LABS: CLARITY,URINE CLEAR; COLOR,URINE YELLOW
[2020-02-16 22:56] LABS: BACTERIA,URINE NEGATIVE /HPF; BILIRUBIN,URINE NEGATIVE (NEGATIVE); GLUCOSE, URINE (UA) NEGATIVE (NEGATIVE); KETONES,URINE 1+ (NEGATIVE); LEUKOCYTE ESTERASE ,URINE NEGATIVE (NEGATIVE); NITRITE,URINE NEGATIVE (NEGATIVE); PROTEIN,URINE NEGATIVE (NEGATIVE)
[2020-02-16 22:57] LABS: RENAL EPITHELIAL CELLS,URINE 0-2 /HPF
[2020-02-16 22:58] LABS: AMORPHOUS SEDIMENT,UR MOD AMOR URATES /LPF
[2020-02-17] MEDS ORDERED: ONDANSETRON 4 MG/2 ML (SDV) Z0FRAN IVP ONE (01:30)
[2020-02-17] MEDS ORDERED: NS IV 1000 ML 1,000 ML IV SCH (01:30)
[2020-02-17] MEDS ORDERED: PROPOFOL DRIP (ICU) 100 ML IV SCH (01:30)
== END 2020-02-16 22:14 | disposition short-term general hospital (02) ==
LOC: EDUNIT# 17:03 → ER FS 17:05
DX: S02.11GA Other fracture of occiput, right side, initial encounter for closed fracture (principal); I10 Essential (primary) hypertension; E78.5 Hyperlipidemia, unspecified; E11.40 Type 2 diabetes mellitus with diabetic neuropathy, unspecified; F32.9 Major depressive disorder, single episode, unspecified; E78.00 Pure hypercholesterolemia, unspecified; Z85.828 Personal history of other malignant neoplasm of skin; Z23 Encounter for immunization; Z79.4 Long term (current) use of insulin; Z87.891 Personal history of nicotine dependence; Z82.49 Family history of ischemic heart disease and other diseases of the circulatory system; W01.198A Fall on same level from slipping, tripping and stumbling with subsequent striking against other object, initial encounter; Y92.015 Private garage of single-family (private) house as the place of occurrence of the external cause
CPT/HCPCS: 31500; 36415; 51702; 70450; 71045; 72125; 80053; 81000; 83880; 84484; 85025; 85610; 85730; 90471; 90715; 93005; 96361; 96374; 96375; 96376